=== PATIENT | male | born 1955 | race Native Hawaiian/Other Pacific Islander ===

== ENCOUNTER 2018-04-18 21:52 | Inpatient (IN) ==
[2018-04-18] MEDS ORDERED: Acetaminophen 325 MG Tablet PO ONE (22:36)
[2018-04-18] MEDS ORDERED: Sod Chloride 0.9% Inj 1,000 ML IV.SIG SCH ×2 (22:45→23:45)
[2018-04-18] MEDS ORDERED: Morphine Inj 4 MG/ML Vial IV.PUSH ONE (22:57)
--- NOTE | 2018-04-18 22:57 | ED ---
HPI General Chief complaint: Weakness Stated complaint: dizzy/difficutly urinating/hot and cold Time Seen by Provider: 04/18/18 22:36 Source: patient Mode of arrival: ambulatory Limitations: no limitations History of Present Illness HPI narrative: 63yo M with PMH of HTN, DM, BPH here with c/o feeling chills/hot and cold, generalized weakness, intermittent chest pain, abdominal pain, difficulty urinating for 2 days. Said chest pain is intermittent, sharp, midsternal and nonradiating. Son also noticed yellow coloration of bilateral sclera today. Abdominal pain is more epigastric but radiates to whole abdomen. Denies any sob, n/v, focal weakness or numbness. Related Data Home Medications Medication Instructions Recorded Confirmed aspirin 81 mg PO DAILY 04/19/18 04/19/18 glipizide 5 mg PO DAILY 04/19/18 04/19/18 metformin 500 mg PO BID 04/19/18 04/19/18 tamsulosin [Flomax] 0.4 mg PO DAILY 04/19/18 04/19/18 Allergies Allergy/AdvReac Type Severity Reaction Status Date / Time penicillin G Allergy Intermediate Rash Verified 04/18/18 23:22 Review of Systems ROS: all other systems reviewed are negative [facility] Medical History Medical History BPH (benign prostatic hyperplasia) (Acute) Diabetes (Acute) HTN (hypertension) (Acute) Family History Family History Mother Breast cancer Father Stroke Social History Social History Substance History: No History of Abuse Second Hand Smoke Exposure: No Smoking Status: Never smoker How Often Do You Have a Drink Containing Alcohol: Never Recent Travel in [facility] within the Last 8 Weeks: No Recent Out of Country Travel within the Last 8 Weeks: No Exam Narrative Exam Narrative: GENERAL: 63yo M in mild distress. SKIN: Focused skin assessment warm/dry. HEAD: Atraumatic. Normocephalic. EYES: Pupils equal and round. +scleral icterus. No injection or drainage. ENT: No nasal bleeding or discharge. Mucous membranes pink and moist. NECK: Trachea midline. No JVD. CARDIOVASCULAR: Tachycardic in the 130s. No murmur appreciated. RESPIRATORY: No accessory muscle use. Clear to auscultation. Breath sounds equal bilaterally. GASTROINTESTINAL: Abdomen soft, non-tender, nondistended. MUSCULOSKELETAL: No obvious deformities. No clubbing. No cyanosis. No edema. NEUROLOGICAL: Awake and alert. No obvious cranial nerve deficits. Motor grossly within normal limits in all extremities. Sensation intact. Normal speech. PSYCHIATRIC: Appropriate mood and affect; insight and judgment normal. Course Initial Documented Vital Signs Temperature 102 F H 04/18/18 22:03 Pulse Rate 131 H 04/18/18 22:03 Respiratory Rate 20 04/18/18 22:03 Blood Pressure 161/76 H 04/18/18 22:03 Pulse Oximetry 93 L 04/18/18 22:03 Last Documented Vital Signs Temperature 100.6 F H 04/19/18 20:00 Pulse Rate 138 H 04/19/18 20:00 Respiratory Rate 22 04/19/18 20:00 Blood Pressure 111/60 04/19/18 20:00 Pulse Oximetry 99 04/19/18 20:23 Critical Care Time Critical Care Time: Yes Total Critical Care Time: 45 Attestation: Aggregate critical care time was 45 minutes. Time to perform other separately billable procedures was not included in the critical care time. My time did not include minutes spent treating any other patients simultaneously or on activities that did not directly contribute to the patient's treatment. The services I provided to this patient were to treat and/or prevent clinically significant deterioration that could result in: cardiovascular collapse or . I provided critical care services requiring my management, as noted below: Chart data review, documentation time, medication orders and management, vital sign assessments/reviewing monitor data, ordering and reviewing lab tests, ordering and interpreting/reviewing x-rays and diagnostic studies, care of the patient and discussion of the patient with the admitting physicians. Sign Out Sign Out Data: Patient Sign Out occurred on 04/19/18 at 00:48. Patient's care was discussed, and care was transferred from Madie Nielson DO to Makayla Hernandez MD. Sign Out Comment: 63yo M with severe sepsis, pending CT a/p, impression is acute cholangitis. Need to be admitted but may be to the main. Last updated by Madie Nielson DO at 04/19/18 00:16 Post-Handoff Eval: Accepted in transfer of care for follow-up of pending CT and patient disposition Medical Decision Making MDM Narrative Medical decision making narrative: 63yo M here with fever, abdominal pain, sclero icterus, intermittent chest pain for 2 days. Pt is febrile at 102.9F and tachycardic in the 130s. Sepsis protocol initiated. Labs reviewed, no leukocytosis. H/H low at 12.3/38.7. Neutrophil 92.4%. BUN/creatinine elevated at 21/1.90. No prior to compare. Glucose is elevated at 292. CO2 normal. No increased anion gap. Total bilirubin is elevated at 5.7. LFTs elevated. Alk phos elevated. Lipase normal. CXR negative. Lactic is elevated at 3.2, ordered NS IVF x2. Troponin is elevated at 0.26, which I feel is more secondary to sepsis. Pt has no chest pain currently. Said last episode of chest pain was 2 days ago and it was intermittent sharp, burning midsternal chest pain. UA showed positive nitrate, ictotest. Pt given vancomycin and aztreonam since he is allergic to penicillin. Pt reevaluated after morphine and pain has improved. He has 1 20 gauge IV in left AC, ask nurse to place a second IV. Pt sign out to next team to admit and follow up with CT a/p. Pt speaks Portuguese only and family wanted son to translate. Son was present for history and physical. He left his phone number when he had to leave. His name is Ajay and number is [phone]. Accepted in transfer of care for follow-up of CT abdomen and pelvis and patient disposition CT abdomen pelvis identifies a markedly abnormal gallbladder with marked abdominal wall thickening and pericholecystic fluid marked debris and stones in the gallbladder with for percutaneous cholecystostomy per reading radiologist no ductal dilatation. Patient is identified to have marked left shift renal insufficiency elevated lactic acid remains tachycardic with fever after acetaminophen and IV fluids also identified to have elevated troponin I EKG shows sinus tachycardia patient denies any chest pain at this time no nausea or vomiting or shortness of breath. Patient is severely septic patient will need ongoing IV antibiotics intensive care management and procedural/surgical intervention. Plan will be to transfer patient to [facility] for ongoing management of sepsis. Patient spouse and patient's son notified of imaging results diagnosis need for transfer to [facility] to the intensive care unit at that facility and the plan for ongoing IV fluid support antibiotic possible need for pressure support and involvement of GI and general surgery as well as need for MRCP. Discussion with Dr. Conway control clerk subassembly for GI recommends MRCP to see if patient will be a candidate for ERCP and surgery consult this has been discussed with Dr. Benoit who will place surgical consult herself and will order MRCP to be done upon patient's arrival to [facility]. Medical Screen Exam Complete: Yes Emergency Medical Condition: Yes Differential Diagnosis Differential Diagnosis: Urosepsis vs. pancreatitis vs. acute cholangitis vs. hepatitis vs. pneumonia vs. ACS Lab Data Result diagrams: 04/18/18 22:45 04/19/18 04:37 Lab Results 04/18/18 04/18/18 04/18/18 Range/Units 22:45 22:45 22:45 CBC w Diff Slide review pending WBC 7.4 (4.0-11.0) th/mm3 RBC 5.56 (4.50-5.90) mil/mm3 Hgb 12.3 L (13.0-17.0) gm/dL Hct 38.7 L (39.0-51.0) % MCV 69.6 L (80.0-100.0) fL MCH 22.2 L (27.0-34.0) pg MCHC 31.9 L (32.0-36.0) % RDW 15.1 (11.6-17.2) % Plt Count 175 (150-450) th/mm3 MPV 9.8 (7.0-11.0) fL Neut % (Auto) 92.4 H (16.0-70.0) % Lymph % (Auto) 4.8 L (9.0-44.0) % [place] % (Auto) 2.3 (0.0-8.0) % Eos % (Auto) 0.1 (0.0-4.0) % Baso % (Auto) 0.4 (0.0-2.0) % Neut # (Auto) 6.8 (1.8-7.7) th/mm3 Lymph # (Auto) 0.4 L (1.0-4.8) th/mm3 [place] # (Auto) 0.2 (0.0-0.9) th/mm3 Eos # (Auto) 0.0 (0.0-0.4) th/mm3 Baso # (Auto) 0.0 (0.0-0.2) th/mm3 WBC Differential . Diff Scan Auto diff confirmed Differential Comment . Dimorphic RBCs Present H (None) Ovalocytes 2+ H (None) [place] Cells 1+ H (None) Keratocytes 2+ H (None) PT 12.6 H (9.8-11.6) sec INR 1.2 Ratio APTT 34.5 H (23.4-31.7) sec Sodium 134 L (136-145) meq/L Potassium 3.6 (3.5-5.1) meq/L Chloride 99 (98-107) meq/L Carbon Dioxide 26.1 (21.0-32.0) meq/L Anion Gap 9 (5-15) meq/L BUN 21 H (7-18) mg/dL Creatinine 1.90 H (0.60-1.30) mg/dL Estimated GFR 36 L (>89) mL/min POC Glucose (68-110) mg/dl Random Glucose 292 H (74-106) mg/dL Lactic Acid (0.4-2.0) mmol/L Calcium 9.0 (8.5-10.1) mg/dL Total Bilirubin (0.2-1.0) mg/dL Direct Bilirubin (0.0-0.2) mg/dL Indirect Bilirubin (0.0-0.8) mg/dL AST (15-37) U/L ALT (12-78) U/L Alkaline Phosphatase (45-117) U/L Troponin I (0.02-0.05) ng/mL Total Protein (6.4-8.2) g/dL Albumin (3.4-5.0) g/dL Lipase (73-393) U/L Urine Color (Yellw/Straw) Urine Clarity (Clear) Urine pH (5.0-8.5) Ur Specific [place] (1.002-1.035) Urine Protein (Neg-Trace) mg/dL Urine Glucose (UA) (Negative) mg/dL Urine Ketones (Negative) mg/dL Urine Occult Blood (Negative) Urine Nitrate (Negative) Urine Bilirubin (Negative) Urine Ictotest (Negative) Urine Urobilinogen (Less than 2) mg/dL Ur Leukocyte Esterase (Negative) Urine RBC (0-3) /hpf Urine WBC (0-5) /hpf Ur Squamous Epith Cells (0-5) /hpf Amorphous Sediment (None) /hpf Urine Bacteria (None) /hpf Fine Granular Casts (None) /lpf WBC Casts (None) /lpf Urine Mucus (Occasional) /lpf Micro UA Comment Ur Microscopic Review Urine Culture Comments Nasal Screen MRSA (PCR) (Negative) 04/18/18 04/18/18 04/18/18 Range/Units 22:45 22:45 23:22 CBC w Diff WBC (4.0-11.0) th/mm3 RBC (4.50-5.90) mil/mm3 Hgb (13.0-17.0) gm/dL Hct (39.0-51.0) % MCV (80.0-100.0) fL MCH (27.0-34.0) pg MCHC (32.0-36.0) % RDW (11.6-17.2) % Plt Count (150-450) th/mm3 MPV (7.0-11.0) fL Neut % (Auto) (16.0-70.0) % Lymph % (Auto) (9.0-44.0) % [place] % (Auto) (0.0-8.0) % Eos % (Auto) (0.0-4.0) % Baso % (Auto) (0.0-2.0) % Neut # (Auto) (1.8-7.7) th/mm3 Lymph # (Auto) (1.0-4.8) th/mm3 [place] # (Auto) (0.0-0.9) th/mm3 Eos # (Auto) (0.0-0.4) th/mm3 Baso # (Auto) (0.0-0.2) th/mm3 WBC Differential Diff Scan Differential Comment Dimorphic RBCs (None) Ovalocytes (None) [place] Cells (None) Keratocytes (None) PT (9.8-11.6) sec INR Ratio APTT (23.4-31.7) sec Sodium (136-145) meq/L Potassium (3.5-5.1) meq/L Chloride (98-107) meq/L Carbon Dioxide (21.0-32.0) meq/L Anion Gap (5-15) meq/L BUN (7-18) mg/dL Creatinine (0.60-1.30) mg/dL Estimated GFR (>89) mL/min POC Glucose (68-110) mg/dl Random Glucose (74-106) mg/dL Lactic Acid 3.2 H (0.4-2.0) mmol/L Calcium (8.5-10.1) mg/dL Total Bilirubin 5.7 H (0.2-1.0) mg/dL Direct Bilirubin 4.3 H (0.0-0.2) mg/dL Indirect Bilirubin 1.4 H (0.0-0.8) mg/dL AST 131 H (15-37) U/L ALT 338 H (12-78) U/L Alkaline Phosphatase 221 H (45-117) U/L Troponin I 0.26 H (0.02-0.05) ng/mL Total Protein 8.1 (6.4-8.2) g/dL Albumin 3.3 L (3.4-5.0) g/dL Lipase 135 (73-393) U/L Urine Color Yellow (Yellw/Straw) Urine Clarity Clear (Clear) Urine pH 5.5 (5.0-8.5) Ur Specific [place] Greater/equal 1.030 (1.002-1.035) Urine Protein 100 H (Neg-Trace) mg/dL Urine Glucose (UA) 100 H (Negative) mg/dL Urine Ketones Trace H (Negative) mg/dL Urine Occult Blood Large H (Negative) Urine Nitrate Positive H (Negative) Urine Bilirubin Large H (Negative) Urine Ictotest Positive H (Negative) Urine Urobilinogen 4.0 H (Less than 2) mg/dL Ur Leukocyte Esterase Negative (Negative) Urine RBC 51-189 H (0-3) /hpf Urine WBC 21-50 H (0-5) /hpf Ur Squamous Epith Cells 0-5 (0-5) /hpf Amorphous Sediment Many H (None) /hpf Urine Bacteria Moderate H (None) /hpf Fine Granular Casts 11-30 H (None) /lpf WBC Casts 4-10 H (None) /lpf Urine Mucus Few H (Occasional) /lpf Micro UA Comment Cath-culture ind Ur Microscopic Review Microscopic reviewed Urine Culture Comments Cath-cult indicated Nasal Screen MRSA (PCR) (Negative) 04/19/18 04/19/18 04/19/18 Range/Units 02:30 04:37 04:50 CBC w Diff WBC (4.0-11.0) th/mm3 RBC (4.50-5.90) mil/mm3 Hgb (13.0-17.0) gm/dL Hct (39.0-51.0) % MCV (80.0-100.0) fL MCH (27.0-34.0) pg MCHC (32.0-36.0) % RDW (11.6-17.2) % Plt Count (150-450) th/mm3 MPV (7.0-11.0) fL Neut % (Auto) (16.0-70.0) % Lymph % (Auto) (9.0-44.0) % [place] % (Auto) (0.0-8.0) % Eos % (Auto) (0.0-4.0) % Baso % (Auto) (0.0-2.0) % Neut # (Auto) (1.8-7.7) th/mm3 Lymph # (Auto) (1.0-4.8) th/mm3 [place] # (Auto) (0.0-0.9) th/mm3 Eos # (Auto) (0.0-0.4) th/mm3 Baso # (Auto) (0.0-0.2) th/mm3 WBC Differential Diff Scan Differential Comment Dimorphic RBCs (None) Ovalocytes (None) [place] Cells (None) Keratocytes (None) PT (9.8-11.6) sec INR Ratio APTT (23.4-31.7) sec Sodium 140 (136-145) meq/L Potassium 3.3 L (3.5-5.1) meq/L Chloride 107 D (98-107) meq/L Carbon Dioxide 23.5 (21.0-32.0) meq/L Anion Gap 10 (5-15) meq/L BUN 22 H (7-18) mg/dL Creatinine 1.68 H (0.60-1.30) mg/dL Estimated GFR 41 L (>89) mL/min POC Glucose (68-110) mg/dl Random Glucose 220 H (74-106) mg/dL Lactic Acid 1.2 (0.4-2.0) mmol/L Calcium 7.7 L D (8.5-10.1) mg/dL Total Bilirubin (0.2-1.0) mg/dL Direct Bilirubin (0.0-0.2) mg/dL Indirect Bilirubin (0.0-0.8) mg/dL AST (15-37) U/L ALT (12-78) U/L Alkaline Phosphatase (45-117) U/L Troponin I (0.02-0.05) ng/mL Total Protein (6.4-8.2) g/dL Albumin (3.4-5.0) g/dL Lipase (73-393) U/L Urine Color (Yellw/Straw) Urine Clarity (Clear) Urine pH (5.0-8.5) Ur Specific [place] (1.002-1.035) Urine Protein (Neg-Trace) mg/dL Urine Glucose (UA) (Negative) mg/dL Urine Ketones (Negative) mg/dL Urine Occult Blood (Negative) Urine Nitrate (Negative) Urine Bilirubin (Negative) Urine Ictotest (Negative) Urine Urobilinogen (Less than 2) mg/dL Ur Leukocyte Esterase (Negative) Urine RBC (0-3) /hpf Urine WBC (0-5) /hpf Ur Squamous Epith Cells (0-5) /hpf Amorphous Sediment (None) /hpf Urine Bacteria (None) /hpf Fine Granular Casts (None) /lpf WBC Casts (None) /lpf Urine Mucus (Occasional) /lpf Micro UA Comment Ur Microscopic Review Urine Culture Comments Nasal Screen MRSA (PCR) Not detected (Negative) 04/19/18 04/19/18 04/19/18 Range/Units 08:00 08:10 18:00 CBC w Diff WBC (4.0-11.0) th/mm3 RBC (4.50-5.90) mil/mm3 Hgb (13.0-17.0) gm/dL Hct (39.0-51.0) % MCV (80.0-100.0) fL MCH (27.0-34.0) pg MCHC (32.0-36.0) % RDW (11.6-17.2) % Plt Count (150-450) th/mm3 MPV (7.0-11.0) fL Neut % (Auto) (16.0-70.0) % Lymph % (Auto) (9.0-44.0) % [place] % (Auto) (0.0-8.0) % Eos % (Auto) (0.0-4.0) % Baso % (Auto) (0.0-2.0) % Neut # (Auto) (1.8-7.7) th/mm3 Lymph # (Auto) (1.0-4.8) th/mm3 [place] # (Auto) (0.0-0.9) th/mm3 Eos # (Auto) (0.0-0.4) th/mm3 Baso # (Auto) (0.0-0.2) th/mm3 WBC Differential Diff Scan Differential Comment Dimorphic RBCs (None) Ovalocytes (None) [place] Cells (None) Keratocytes (None) PT (9.8-11.6) sec INR Ratio APTT (23.4-31.7) sec Sodium (136-145) meq/L Potassium (3.5-5.1) meq/L Chloride (98-107) meq/L Carbon Dioxide (21.0-32.0) meq/L Anion Gap (5-15) meq/L BUN (7-18) mg/dL Creatinine (0.60-1.30) mg/dL Estimated GFR (>89) mL/min POC Glucose 196 H 147 H (68-110) mg/dl Random Glucose (74-106) mg/dL Lactic Acid (0.4-2.0) mmol/L Calcium (8.5-10.1) mg/dL Total Bilirubin (0.2-1.0) mg/dL Direct Bilirubin (0.0-0.2) mg/dL Indirect Bilirubin (0.0-0.8) mg/dL AST (15-37) U/L ALT (12-78) U/L Alkaline Phosphatase (45-117) U/L Troponin I (0.02-0.05) ng/mL Total Protein (6.4-8.2) g/dL Albumin (3.4-5.0) g/dL Lipase (73-393) U/L Urine Color (Yellw/Straw) Urine Clarity (Clear) Urine pH (5.0-8.5) Ur Specific [place] (1.002-1.035) Urine Protein (Neg-Trace) mg/dL Urine Glucose (UA) (Negative) mg/dL Urine Ketones (Negative) mg/dL Urine Occult Blood (Negative) Urine Nitrate (Negative) Urine Bilirubin (Negative) Urine Ictotest (Negative) Urine Urobilinogen (Less than 2) mg/dL Ur Leukocyte Esterase (Negative) Urine RBC (0-3) /hpf Urine WBC (0-5) /hpf Ur Squamous Epith Cells (0-5) /hpf Amorphous Sediment (None) /hpf Urine Bacteria (None) /hpf Fine Granular Casts (None) /lpf WBC Casts (None) /lpf Urine Mucus (Occasional) /lpf Micro UA Comment Ur Microscopic Review Urine Culture Comments Nasal Screen MRSA (PCR) Not detected (Negative) Imaging Data Radiologist's impression: Chest X-Ray 04/18/18 22:36 CONCLUSION: No acute disease Percutaneous Cholangiogram 04/19/18 00:00 CONCLUSION: 1. Uncomplicated percutaneous cholecystostomy as above. The patient has a patent cystic duct, however, there is occlusion of the common bile duct at the level of the ampulla. This is likely relating to a stone. Cholecystostomy tube placement was felt prudent to decompress the biliary system as detailed above. Turbid bile was noted and a sample sent to the lab for culture. Abdomen/Pelvis CT 04/19/18 00:18 CONCLUSION: 1. Severe changes of cholecystitis. There is no significant gallbladder lumen to allow for percutaneous cholecystostomy. 2. Hepatosplenomegaly. Cholangiopancreatography MRI 04/19/18 04:18 CONCLUSION: 1. Abnormal appearance to the gallbladder and hepatic parenchyma immediately surrounding the gallbladder fossa (rim sign) with multiple gallstones and significant gallbladder wall thickening. Differential considerations include acute cholecystitis and gangrenous cholecystitis. 2. No dilation of the intra or extrahepatic biliary system. ECG Data EKG Prior to Arrival: No Attestation: I personally reviewed and interpreted this ECG as follows: Interpretation: Sinus tachycardia at 125bpm. Normal axis. No significant ST elevation. Discharge Plan Discharge Disposition Patient Disposition: ED Admit(ED Internal Use Only) Discharge Condition Condition: Fair Discharge Order Discharge Orders: ED Use Only Admit Order (Routine); Ordered 04/19/18 Ordered By: Makayla Hernandez Discharge Details Diagnosis: Severe sepsis, Cholecystitis with cholangitis, UTI (urinary tract infection), Acute renal insufficiency Physicians Team ED Provider: Makayla Hernandez Primary Care Provider: Cholo Marin Attending Provider: Rosanna Benoit Other Providers: Jovi Sierra V ; Joseph,Frankie ; Gosia Elise ; Obdulio Wan Status ED Status: Left Department Discharge Information Discharge Date/Time: 04/19/18 03:45
--- NOTE | 2018-04-18 23:03 | XR ---
EXAM DATE: 04/18/2018 10:57 PM EST AGE/SEX: 63 years / Male INDICATIONS: COugh, dizziness. CLINICAL DATA: This is the patient's initial encounter. Patient reports that signs and symptoms have been present for 1 day and indicates a pain score of 0/10. MEDICAL/SURGICAL HISTORY: . Hypertension. Hypercholesterolemia. Osteoarthritis. Anticoagulant therapy, Aspirin 81mg. Hyperlipidemia. Diabetes. Anemia. Non-responsive. COMPARISON: No prior exams available for comparison. FINDINGS: A single AP view of the chest demonstrates the lungs to be symmetrically aerated without evidence of mass, infiltrate or effusion. The cardiomediastinal contours are unremarkable. Osseous structures a re intact. CONCLUSION: No acute disease Electronically signed by: Derek Marquis MD Board Certified Radiologist 04/18/2018 11:02 PM EST
[2018-04-18 23:22] LABS: Baso % (Auto) 0.4 % (0.0-2.0); Eos % (Auto) 0.1 % (0.0-4.0); Hematocrit 38.7 % (39.0-51.0); Hemoglobin 12.3 gm/dL (13.0-17.0); Lymph # (Auto) 0.4 th/mm3 (1.0-4.8); Lymph % (Auto) 4.8 % (9.0-44.0); Mean Corpuscular HGB Conc 31.9 % (32.0-36.0); Mean Corpuscular Hemoglobin 22.2 pg (27.0-34.0); Mean Corpuscular Volume 69.6 fL (80.0-100.0); Mean Platelet Volume 9.8 fL (7.0-11.0); Mono # (Auto) 0.2 th/mm3 (0.0-0.9); Mono % (Auto) 2.3 % (0.0-8.0); Neut # (Auto) 6.8 th/mm3 (1.8-7.7); Neut % (Auto) 92.4 % (16.0-70.0); Platelet Count 175 th/mm3 (150-450); Red Blood Count 5.56 mil/mm3 (4.50-5.90); Red Cell Distribution Width 15.1 % (11.6-17.2); White Blood Count 7.4 th/mm3 (4.0-11.0)
[2018-04-18 23:29] LABS: Potassium 3.6 meq/L (3.5-5.1)
[2018-04-18 23:32] LABS: Carbon Dioxide 26.1 meq/L (21.0-32.0)
[2018-04-18 23:34] LABS: Albumin 3.3 g/dL (3.4-5.0)
[2018-04-18 23:35] LABS: Activated Partial Thrombo Time 34.5 sec (23.4-31.7); INR 1.2 Ratio; Prothrombin Time 12.6 sec (9.8-11.6)
[2018-04-18 23:38] LABS: Total Protein 8.1 g/dL (6.4-8.2)
[2018-04-18 23:41] LABS: Troponin I 0.26 ng/mL (0.02-0.05)
[2018-04-18] MEDS ORDERED: Vancomycin Inj 1,000 MG in Sodium Chlor 0.9% Inj 250 ML IV.SIG ONE (23:43)
[2018-04-18 23:54] LABS: Bilirubin,Urine Large (Negative); Clarity,Urine Clear (Clear); Color,Urine Yellow (Yellw/Straw); Glucose,Urine (UA) 100 mg/dL (Negative); Leukocyte Esterase,Urine Negative (Negative); Nitrite,Urine Positive (Negative); PH,Urine 5.5 (5.0-8.5); Specific Gravity,Urine Greater/Equal 1.030 (1.002-1.035)
[2018-04-18 23:56] LABS: Ictotest,Urine Positive (Negative)
[2018-04-19 00:15] LABS: Amorphous Sediment,Urine Many /hpf
[2018-04-19 00:16] LABS: Mucus,Urine Few /lpf (Occasional); Squamous Epithelial Cell,Urine 0-5 /hpf (0-5); WBC,Urine 21-50 /hpf (0-5)
[2018-04-19 00:17] LABS: Bacteria,Urine Moderate /hpf; RBC,Urine 51-189 /hpf (0-3)
[2018-04-19 00:28] LABS: Dimorphic RBC Present
[2018-04-19 00:29] LABS: Burr Cells 1+; Ovalocytes 2+
--- NOTE | 2018-04-19 00:50 | CT ---
EXAM DATE: 04/19/2018 12:41 AM EST AGE/SEX: 63 years / Male INDICATIONS: Dizziness. Difficulty urinating. CLINICAL DATA: This is the patient's initial encounter. Patient reports that signs and symptoms have been present for 1 day and indicates a pain score of 7/10. MEDICAL/SURGICAL HISTORY: . Abdominal pain. . ORAL CONTRAST: No oral contrast ingested. RADIATION DOSE: 20.70 CTDI (mGy) COMPARISON: [facility], CT ABDOMEN AND PELVIS W/ CONTRAST, 05/18/2014. . TECHNIQUE: Multiple contiguous axial images were obtained through the abdomen and pelvis following b olus infusion of 46 ml Visipaque 320 (iodixanol) nonionic water-soluble contrast as a single exam d ose. No oral contrast ingested. Using automated exposure control and adjustment of the mA and/or kV according to patient size, radiation dose was kept as low as reasonably achievable to obtain optimal diagnostic quality images. DICOM format image data is available electronically for review and compar aileen. FINDINGS: Lower Lungs: Slight lateral left base atelectasis. Liver: The liver has a homogeneous density without space-occupying lesion. There is no dilation of th e biliary tree. The gallbladder is markedly abnormal containing stone debris with pronounced diffuse gallbladder wall thickening and extensive edematous change in the hepatic parenchyma adjacent to the gallbladder fossa. Moderate underlying pericholecystic inflammatory changes below the liver edge. Spleen: Mildly enlarged without focal mass. Pancreas: Unremarkable without mass or calcification. Kidneys: Normal in size and shape. No evidence of mass or hydronephrosis. Adrenal Glands: Unremarkable. Aorta: The aorta and proximal iliac vessels are grossly unremarkable without aneurysmal dilation. Bowel/Mesentery: The bowel loops are grossly unremarkable. The cecum and sigmoid colon have a normal configuration. Abdominal Wall: Intact. Retroperitoneum: Minimal prominence of periaortic lymph nodes. Bladder: Nondilated. Reproductive Organs: Mild prostatic enlargement. No evidence of pelvic mass or free fluid. Inguinal: The inguinal region is unremarkable without evidence of adenopathy. Bony Structures: Unremarkable. CONCLUSION: 1. Severe changes of cholecystitis. There is no significant gallbladder lumen to allow for percutane ous cholecystostomy. 2. Hepatosplenomegaly. Electronically signed by: Derek Marquis MD Board Certified Radiologist 04/19/2018 12:48 AM EST
[2018-04-19] MEDS ORDERED: Sod Chloride 0.9% Inj 1,000 ML IV.SIG SCH (01:45)
--- NOTE | 2018-04-19 04:37 | P.HPCC ---
History of Present Illness Service: Critical care medicine Primary Care Physician: Cholo Marin MD Chief Complaint: chills/abdominal pain. 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 He had 2-3 episodes of emesis 04/17. Was lethargic and slept most of the day. Today his son noticed he was jaundiced and having chills and so he encouraged him to come to the emergency department. He has no prior history of similar symptoms. He was febrile on arrival to 102.9. He has a normal white cell count but left shift. Lactic acid is 3.2. LFTs are elevated and obstructive pattern. CT abd/pelvis demonstrates gallbladder wall thickening with pericholecystic fluid. There is stone debris but no dilatation of the biliary tree. He is transferred to [facility] for stabilization of severe sepsis and GI evaluation for possible ERCP. U/a also consistent with UTI. - Diagnosis (1) Severe sepsis (2) Cholecystitis with cholangitis (3) UTI (urinary tract infection) (4) Acute renal insufficiency (5) BPH (benign prostatic hyperplasia) (6) Diabetes mellitus Inpatient Certification: I certify that the inpatient services were ordered in accordance with Medicare regulations governing the order. This includes certification that hospital inpatient services are reasonable and necessary and in the case of services not specified as inpatient-only under 42 CFR 419.22(n), that they are appropriately provided as inpatient services in accordance to with the 2-midnight benchmark under 43 CFR 412.3(e) Review of Systems Constitutional: Reports anorexia, Reports chills, Reports fatigue, Reports fever (s), Reports weakness Eyes: Denies change in vision Respiratory: Denies cough Gastrointestinal: Reports abdominal pain Genitourinary: Reports decreased urination Musculoskeletal: Denies joint pain Skin/Breast: Denies boil Hematologic/Lymphatic: Denies easy bleeding Allergic/Immunologic: Denies hives PMFSH - History History Provided By: Family Member - Medical History Medical History: Medical History (Last Updated 04/19/18 @ 08:12 by Rosanna Benoit MD) BPH (benign prostatic hyperplasia) Diabetes HTN (hypertension) - Surgical History Surgical History: Surgical History (Last Reviewed 02/15/19 @ 08:12 by Rosanna Benoit MD) No history of previous surgery - Family History Family History: Family History (Last Updated 04/19/18 @ 08:13 by Rosanna Benoit MD) Mother Breast cancer Father Stroke - Social History I have reviewed the patient's Social History: Yes - Tobacco History Second Hand Smoke Exposure: No Tobacco Use In Past 30 Days: No Smoking Status: Never smoker - Alcohol History How Often Do You Have a Drink Containing Alcohol: Never - Substance Use History Substance History: No History of Abuse - Travel History Recent Travel in the [place] Within the Last 8 Weeks: No Recent Travel Out of the Country Within the Last 8 Weeks: No - Immunization History Tetanus Immunization: Unsure Medications and Allergies Allergies Allergy/AdvReac Type Severity Reaction Status Date / Time penicillin G Allergy Intermediate Rash Verified 04/18/18 23:22 Home Medications Medication Instructions Recorded Confirmed Type aspirin 81 mg PO DAILY 04/19/18 04/19/18 History glipizide 5 mg PO DAILY 04/19/18 04/19/18 History metformin 500 mg PO BID 04/19/18 04/19/18 History tamsulosin [Flomax] 0.4 mg PO DAILY 04/19/18 04/19/18 History Results - Labs CBC & Chem 7: 04/18/18 22:45 04/19/18 04:37 Labs: Short CBC 04/18/18 Range/Units 22:45 WBC 7.4 (4.0-11.0) th/mm3 Hgb 12.3 L (13.0-17.0) gm/dL Hct 38.7 L (39.0-51.0) % Plt Count 175 (150-450) th/mm3 BMP 04/18/18 22:45 Sodium 134 L Potassium 3.6 Chloride 99 Carbon Dioxide 26.1 BUN 21 H Creatinine 1.90 H Calcium 9.0 Cardiac Enzymes 04/18/18 Range/Units 22:45 Troponin I 0.26 H (0.02-0.05) ng/mL Liver Function 04/18/18 Range/Units 22:45 Total Bilirubin 5.7 H (0.2-1.0) mg/dL Direct Bilirubin 4.3 H (0.0-0.2) mg/dL AST 131 H (15-37) U/L ALT 338 H (12-78) U/L Alkaline Phosphatase 221 H (45-117) U/L Albumin 3.3 L (3.4-5.0) g/dL Urine 04/18/18 Range/Units 23:22 Urine Color Yellow (Yellw/Straw) Urine Clarity Clear (Clear) Urine pH 5.5 (5.0-8.5) Ur Specific [place] Greater/equal 1.030 (1.002-1.035) Urine Protein 100 H (Neg-Trace) mg/dL Urine Glucose (UA) 100 H (Negative) mg/dL - Imaging Impressions Chest X-Ray 04/18/18 22:36 CONCLUSION: No acute disease Abdomen/Pelvis CT 04/19/18 00:18 CONCLUSION: 1. Severe changes of cholecystitis. There is no significant gallbladder lumen to allow for percutaneous cholecystostomy. 2. Hepatosplenomegaly. Exam Vital signs: Vital Signs 04/18/18 22:03 04/18/18 22:41 04/19/18 00:47 Temperature 102 F H 102.9 F H 103.0 F H Pulse Rate 131 H 128 H 121 H Respiratory Rate 20 15 Blood Pressure 161/76 H 153/67 H Pulse Oximetry 93 L 93 L 100 04/19/18 02:10 04/19/18 03:35 Temperature 100.0 F H 99.8 F H Pulse Rate 118 H 112 H Respiratory Rate 15 15 Blood Pressure 106/68 106/59 L Pulse Oximetry 93 L 94 L Intake & Output 04/18/18 04/18/18 04/19/18 06:59 18:59 06:59 Intake Total 3450 / 3450 Balance 3450 / 3450 Weight 115 kg Intake: IV 3450 / 3450 Azactam Inj 1,000 MG In NS Inj 100 / 100 100 ML @ 200 mls/hr IV.SIG ONCE ONE Rx#:[id number] NS Inj 1,000 ML @ 1000 mls/hr 3000 / 3000 IV.SIG BOLUS MELVIN Rx#:[id number] Vancomycin Inj 1,000 MG In NS 250 / 250 Inj 250 ML @ 250 mls/hr IV.SIG ONCE ONE Rx#:[id number] Flagyl 500 MG Inj 100 ML @ 100 100 / 100 mls/hr IV.SIG ONCE ONE Rx#: [id number] Narrative: GENERAL: Well-nourished, well-developed patient who is pleasant, alert, can be recumbent in bed on room air. SKIN: Warm and dry. HEAD: Atraumatic. Normocephalic. EYES: Pupils equal and round. +icterus No injection or drainage. ENT: No nasal bleeding or discharge. Mucous membranes pink and moist. NECK: Trachea midline. No JVD. CARDIOVASCULAR: Regular rate and rhythm. No murmurs rubs or gallops. RESPIRATORY: No accessory muscle use. Clear to auscultation. Breath sounds equal bilaterally. On RA. GASTROINTESTINAL: Marked tenderness RUQ and epigastrium. No rebound or guarding. BS+. MUSCULOSKELETAL: Extremities without clubbing, cyanosis, or edema. NEUROLOGICAL: Awake and alert. No obvious cranial nerve deficits. Motor grossly within normal limits. Normal speech. Septic Shock Reassessment Septic shock perfusion: reassessment completed Caprini VTE Risk Assessment Caprini VTE Risk Assessment: Moderate/High Risk (score >= 2) Caprini Risk Assessment Model: Point Value = 1 Point Value = 2 Point Value = 3 Point Value = 5 Age 41-60 Minor surgery BMI > 25 kg/m2 Swollen legs Varicose veins or History of unexplained or recurrent spontaneous Oral contraceptives or hormone replacement Sepsis (< 1 month) Serious lung disease, including pneumonia (< 1 month) Abnormal pulmonary function Acute myocardial infarction Congestive heart failure (< 1 month) History of inflammatory bowel disease Medical patient at bed rest Age 61-74 Arthroscopic surgery Major open surgery (> 45 min) Laparoscopic surgery (> 45 min) Malignancy Confined to bed (> 72 hours) Immobilizing plaster cast Central venous access Age >= 75 History of VTE Family history of VTE Factor V Leiden Prothrombin [id number] Lupus anticoagulant Anticardiolipin antibodies Elevated serum homocysteine Heparin-induced thrombocytopenia Other congenital or acquired thrombophilia Stroke (< 1 month) Elective arthroplasty Hip, pelvis, or leg fracture Acute spinal cord injury (< 1 month) Prophylaxis Regimen: Total Risk Factor Score Risk Level Prophylaxis Regimen 0-1 Low Early ambulation 2 Moderate Order ONE of the following: *Sequential Compression Device (SCD) *Heparin 5000 units SQ BID 3-4 Higher Order ONE of the following medications: *Heparin 5000 units SQ TID *Enoxaparin/Lovenox 40 mg SQ daily (WT < 150 kg, CrCl > 30 mL/min) *Enoxaparin/Lovenox 30 mg SQ daily (WT < 150 kg, CrCl > 10-29 mL/min) *Enoxaparin/Lovenox 30 mg SQ BID (WT < 150 kg, CrCl > 30 mL/min) AND/OR *Sequential Compression Device (SCD) 5 or more Highest Order ONE of the following medications: *Heparin 5000 units SQ TID (Preferred with Epidurals) *Enoxaparin/Lovenox 40 mg SQ daily (WT < 150 kg, CrCl > 30 mL/min) *Enoxaparin/Lovenox 30 mg SQ daily (WT < 150 kg, CrCl > 10-29 mL/min) *Enoxaparin/Lovenox 30 mg SQ BID (WT < 150 kg, CrCl > 30 mL/min) AND *Sequential Compression Device (SCD) Assessment and Plan - Problem List (1) Severe sepsis Code(s): A41.9 - Sepsis, unspecified organism; R65.20 - Severe sepsis without septic shock Status: Acute (2) Cholecystitis with cholangitis Code(s): K81.9 - Cholecystitis, unspecified; K83.09 - Other cholangitis Status : Acute (3) UTI (urinary tract infection) Code(s): N39.0 - Urinary tract infection, site not specified Status: Acute (4) Acute renal insufficiency Code(s): N28.9 - Disorder of kidney and ureter, unspecified Status: Acute (5) BPH (benign prostatic hyperplasia) Code(s): N40.0 - Benign prostatic hyperplasia without lower urinary tract symptoms Status: Chronic (6) Diabetes mellitus Code(s): E11.9 - Type 2 diabetes mellitus without complications Status: Chronic - Assessment and Plan Plan: NEURO: Dilaudid as needed pain. Avoid morphine prior to ERCP. RESP: On room air CV: Lactic acidemia LR 120 mL/h. Follow-up serial lactic acid Currently not requiring vasopressors. Monitor blood pressure and heart rate. GI: Acute cholangitis/severe cholecystitis CT abd/pelvis with wall thickening and pericholecystic fluid. No dilation of biliary ducts. Reviewed by Dr. Marquis and not amenable to percutaneous drainage. Dr. Hernandez discussed with . I will order MRCP to evaluate for evidence of obstruction and may proceed with ERCP. May require cholecystectomy for source control if not amenable to ERCP/not improved with ERCP (versus delayed cholecystectomy following medical management) . GI/gen surgery consults. Monitor LFTs. Abx as per below NPO FEN/RENAL: MARIAM BPH LR as per above Flomax 0.4 mg p.o. daily ID: Severe sepsis Acute cholangitis/severe cholecystitis UTI Aztreonam and Flagyl (penicillin allergy). Follow-up blood and urine culture. Source control as per above. HEME: Monitor CBC ENDO: Diabetes mellitus Hold glipizide and metformin. Bedside glucose every 6 hours with medium dose insulin sliding scale. PROPH: SCDs for DVT prophylaxis. Avoid heparin at this time due to anticipated ERCP. Protonix 40 mg IV daily for stress ulcer prophylaxis ACCESS: Peripheral IV. FULL CODE Patient asked that I share his medical information and update his son, Kristie, who is a local dentist. I spoke with his son and provided update when patient arrived to [facility] Main. Patient is critically ill with severe sepsis and suspected cholangitis who is at high risk for acute deterioration. He should remain in ICU. He currently is normotensive and not requiring vasopressors. Will place central line if needed. CCT 40 minutes (3) UTI (urinary tract infection) Qualifiers: Urinary tract infection type: acute cystitis Hematuria presence: without hematuria Qualified Code(s): N30.00 - Acute cystitis without hematuria (6) Diabetes mellitus Qualifiers: Diabetes mellitus type: type 2
[2018-04-19 05:23] LABS: Calcium 7.7 mg/dL (8.5-10.1); Carbon Dioxide 23.5 meq/L (21.0-32.0); Potassium 3.3 meq/L (3.5-5.1)
[2018-04-19] MEDS ORDERED: Potassium Chloride Liq 20 MEQ/15 ML UDC PO PRN ×2 (06:46)
[2018-04-19] MEDS ORDERED: Magnesium Oxide 400 MG Tablet PO PRN (06:46)
[2018-04-19] MEDS ORDERED: Potassium Chlor 20 mEq Premix 20 MEQ/100 ML PIGGYBACK IV.SIG PRN (06:46)
[2018-04-19] MEDS ORDERED: Potassium Chlor 40 mEq Premix 40 MEQ/100 ML PIGGYBACK IV.SIG PRN ×2 (06:46)
[2018-04-19] MEDS ORDERED: Sodium Phosphate Inj 30 MMOL in Sodium Chlor 0.9% Inj 250 ML IV.SIG PRN (06:46)
[2018-04-19] MEDS ORDERED: hydrALAZINE HCl Inj 20 MG/ML Vial IV.PUSH PRN (06:46)
[2018-04-19] MEDS ORDERED: Magnesium Sulfate Inj 2 GM in Sodium Chlor 0.9% Inj 96 ML IV.SIG PRN (06:46)
[2018-04-19] MEDS ORDERED: Magnesium Sulfate Inj 4 GM in Sodium Chlor 0.9% Inj 92 ML IV.SIG PRN (06:46)
[2018-04-19] MEDS ORDERED: Dextrose 50% in Water 50 ML Vial IV.PUSH PRN (06:46)
[2018-04-19] MEDS ORDERED: Potassium Phosphate 500 MG Soluble Tablet PO PRN ×2 (06:46)
[2018-04-19] MEDS ORDERED: Potassium Phosphate Inj 30 MMOL in Sodium Chlor 0.9% Inj 250 ML IV.SIG PRN (06:46)
[2018-04-19] MEDS ORDERED: Labetalol HCl Inj 100 MG/20 ML Vial IV.PUSH PRN (06:46)
[2018-04-19] MEDS ORDERED: Labetalol HCl Inj 20 MG/4 ML Vial IV.PUSH PRN (07:45)
[2018-04-19] MEDS: HYDROmorphone PF Inj 0.5 MG/0.5 ML Syringe IV.PUSH PRN ×3 (08:03→15:09)
--- NOTE | 2018-04-19 08:21 | P.CONGI ---
History of Present Illness Consult date: 04/19/18 Consult reason: Cholecystitis Chief complaint: Severe Sepsis, Cholecystitis W/ Cholangitis, History of Present Illness: This is a pleasant 63-year-old male patient with pertinent medical history of diabetes mellitus chronic kidney insufficiency BPH and hypertension presented to the [facility] emergency room for generalized weakness epigastric pain intermittent chest pain associated with nausea and vomiting and difficulty of urinating for the past 2 days. Chest pain is described as nonradiating and intensifies when leaning forward. For the past 24 hours the epigastric pain has not change characterizes 9/10 stabbing and radiating to the right lower and right upper quadrant. 24 hours prior to onset of abdominal pain patient was having tactile fever and chills. patient denies blood in the stool or any black tarry stool in the past or hematemesis. Patient is not taking any anticoagulants at home except for aspirin 81 mg daily. Patient stated that his son noted that his eyes are becoming yellow. our service is consulted for possible acute cholecystitis with cholangitis. Review of Systems All other systems reviewed negative except as stated in HPI PMFSH - History History Provided By: Family Member - Medical History Medical History: Medical History (Last Updated 04/19/18 @ 08:12 by Rosanna Benoit MD) BPH (benign prostatic hyperplasia) Diabetes HTN (hypertension) - Surgical History Surgical History: Surgical History (Last Reviewed 04/19/18 @ 08:12 by Rosanna Benoit MD) No history of previous surgery - Family History Family History: Family History (Last Updated 04/19/18 @ 08:13 by Rosanna Benoit MD) Mother Breast cancer Father Stroke - Tobacco History Second Hand Smoke Exposure: No Tobacco Use In Past 30 Days: No Smoking Status: Never smoker - Alcohol History How Often Do You Have a Drink Containing Alcohol: Never - Substance Use History Substance History: No History of Abuse - Travel History Recent Travel in the [place] Within the Last 8 Weeks: No Recent Travel Out of the Country Within the Last 8 Weeks: No - Immunization History Tetanus Immunization: Unsure Medications and Allergies Active Medications: Active Medications Albuterol (Duoneb Neb (Prn)) 1 ampul NEB Q2HR NEB PRN PRN Reason: WHEEZING Chlorhexidine Gluconate (Chlorhexidine 2% Cloth) 3 pack TOPICAL DAILY@0400 [facility] Stop: 04/25/18 03:59 Chlorhexidine Gluconate (Chlorhexidine 2% Cloth) 3 pack TOPICAL DAILY@0400 PRN PRN Reason: Extra cloth needed Stop: 04/25/18 03:59 Dextrose (D50w Vial) 50 ml IV.PUSH UNSCH PRN PRN Reason: PER HYPOGLYCEMIA PROTOCOL Glucagon (Glucagon Inj) 1 mg OTHER PRN PRN PRN Reason: for Hypoglycemia Protocol Hydralazine HCl (Apresoline Inj) 10 mg IV.PUSH Q30M PRN PRN Reason: sbp > 160, dbp > 95 Hydromorphone HCl (Dilaudid Pf Inj) 0.5 mg IV.PUSH Q1H PRN PRN Reason: pain 8-10 or not taking po Potassium Chloride (Kcl 40 Meq Premix Inj) 40 meq in 100 mls @ 25 mls/hr IV.SIG Q2H PRN PRN Reason: For Potassium 2.8 - 3.2 mEq/L Potassium Chloride (Kcl 20 Meq Premix Inj) 20 meq in 100 mls @ 50 mls/hr IV.SIG Q2H PRN PRN Reason: For Potassium 3.3 - 3.5 mEq/L Potassium Chloride (Kcl 40 Meq Premix Inj) 40 meq in 100 mls @ 25 mls/hr IV.SIG UNSCH PRN PRN Reason: For Potassium 3.3 - 3.5 mEq/L Sodium Phosphate 30 mmol/ (Sodium Chloride) 260 mls @ 42 mls/hr IV.SIG UNSCH PRN PRN Reason: For Phosphorus < 2.5 mg/dL Potassium Phosphate 30 mmol/ (Sodium Chloride) 260 mls @ 42 mls/hr IV.SIG UNSCH PRN PRN Reason: SEE LABEL COMMENTS Magnesium Sulfate 4 gm/ Sodium (Chloride) 100 mls @ 50 mls/hr IV.SIG UNSCH PRN PRN Reason: For Magnesium 0.9 - 1.1 mg/dL Potassium Chloride (Kcl 20 Meq Premix Inj) 20 meq in 100 mls @ 50 mls/hr IV.SIG Q2H PRN PRN Reason: For Potassium 2.8 - 3.2 mEq/L Lactated Ringer's (Lr 1000 Ml Inj) 1,000 mls @ 120 mls/hr IV.CONT .Q8H20M MELVIN Magnesium Sulfate 2 gm/ Sodium (Chloride) 100 mls @ 50 mls/hr IV.SIG UNSCH PRN PRN Reason: For Magnesium 1.2 - 1.6 mg/dL Aztreonam 2 gm/ Sodium (Chloride) 100 mls @ 200 mls/hr IV.SIG Q8H MELVIN Metronidazole/Sodium Chloride (Flagyl 500 Mg Inj) 100 mls @ 100 mls/hr IV.SIG Q8H MELVIN Insulin Human Regular (Novolin R Correctional Sugar Inj) 0 units SQ Q6HR MELVIN; Protocol Labetalol HCl (Trandate Inj) 10 mg IV.PUSH Q20M PRN PRN Reason: sbp > 160 or DBP > 95 Magnesium Oxide (Mag-Ox) 800 mg PO UNSCH PRN PRN Reason: For Magnesium 1.2 - 1.6 mg/dL Ondansetron HCl (Zofran Inj) 4 mg IV.PUSH Q6H PRN PRN Reason: NAUSEA OR VOMITING Potassium Chloride (Kcl Liq) 40 meq PO UNSCH PRN PRN Reason: Potassium level 3.3-3.5 mEq/L Potassium Chloride (Kcl Liq) 40 meq PO UNSCH PRN PRN Reason: POTASSIUM LESS THAN 3.5 Potassium Phosphate (K-Phos Original) 2,000 mg PO Q4H PRN PRN Reason: Phosphorus Less Than 2.5 mg/dL Potassium Phosphate (K-Phos Original) 2,000 mg PO UNSCH PRN PRN Reason: SEE LABEL COMMENTS Sodium Chloride (Ns Flush) 2 ml IV.FLUSH UNSCH PRN PRN Reason: FLUSH AFTER USING IV ACCESS Allergies Allergy/AdvReac Type Severity Reaction Status Date / Time penicillin G Allergy Intermediate Rash Verified 04/18/18 23:22 Home Medications Medication Instructions Recorded Confirmed Type aspirin 81 mg PO DAILY 04/19/18 04/19/18 History glipizide 5 mg PO DAILY 04/19/18 04/19/18 History metformin 500 mg PO BID 04/19/18 04/19/18 History tamsulosin [Flomax] 0.4 mg PO DAILY 04/19/18 04/19/18 History Exam Vital signs: Vital Signs 04/18/18 22:03 04/18/18 22:41 04/19/18 00:47 Temperature 102 F H 102.9 F H 103.0 F H Pulse Rate 131 H 128 H 121 H Respiratory Rate 20 15 Blood Pressure 161/76 H 153/67 H Pulse Oximetry 93 L 93 L 100 04/19/18 02:10 04/19/18 03:35 02/15/19 04:10 Temperature 100.0 F H 99.8 F H Pulse Rate 118 H 112 H 101 H Respiratory Rate 15 15 Blood Pressure 106/68 106/59 L Pulse Oximetry 93 L 94 L 96 04/19/18 04:30 04/19/18 05:00 04/19/18 06:00 Temperature 99.1 F Pulse Rate 104 H 104 H 99 H Respiratory Rate 25 H 23 20 Blood Pressure 128/67 119/57 L Pulse Oximetry 96 96 98 Intake & Output 04/18/18 04/19/18 04/19/18 18:59 06:59 18:59 Intake Total 3450 / 3450 Balance 3450 / 3450 Weight 106.7 kg Intake: IV 3450 / 3450 Azactam Inj 1,000 MG In NS Inj 100 / 100 100 ML @ 200 mls/hr IV.SIG ONCE ONE Rx#:[id number] NS Inj 1,000 ML @ 1000 mls/hr 3000 / 3000 IV.SIG BOLUS MELVIN Rx#:[id number] Vancomycin Inj 1,000 MG In NS 250 / 250 Inj 250 ML @ 250 mls/hr IV.SIG ONCE ONE Rx#:[id number] Flagyl 500 MG Inj 100 ML @ 100 100 / 100 mls/hr IV.SIG ONCE ONE Rx#: [id number] Oral 0 / 0 Other: # Voids 1 Date of Last Bowel Movement 04/19/18 # Bowel Movements 1 Weight On Admission 115 kg - Constitutional mild distress, average body habitus - Routine HEENT Exam Head: Present: normocephalic, atraumatic Eye: Present: conjunctival icterus - Routine Neck Exam Present: supple - Routine Respiratory Exam Present: CTA bilaterally - Routine Cardiovascular Exam Present: RRR, S1, S2 - Routine Abdominal Exam Present: normoactive bowel sounds, tenderness, guarding, organomegaly. Absent: distended - Detailed Abdominal Exam Palpation/Percussion: Present: hepatomegaly, splenomegaly - Routine Extremities Exam Present: pulses intact, normal capillary refill - Routine Skin Exam Present: intact - Routine Neurological Exam Present: alert, oriented X3 Results - Labs CBC & Chem 7: 04/18/18 22:45 04/19/18 04:37 Labs: Laboratory Results - last 24 hr 04/18/18 04/18/18 04/18/18 22:45 22:45 22:45 CBC w Diff Slide review pending WBC 7.4 RBC 5.56 Hgb 12.3 L Hct 38.7 L MCV 69.6 L MCH 22.2 L MCHC 31.9 L RDW 15.1 Plt Count 175 MPV 9.8 Neut % (Auto) 92.4 H Lymph % (Auto) 4.8 L [place] % (Auto) 2.3 Eos % (Auto) 0.1 Baso % (Auto) 0.4 Neut # (Auto) 6.8 Lymph # (Auto) 0.4 L [place] # (Auto) 0.2 Eos # (Auto) 0.0 Baso # (Auto) 0.0 WBC Differential . Diff Scan Auto diff confirmed Differential Comment . Dimorphic RBCs Present H Ovalocytes 2+ H [place] Cells 1+ H Keratocytes 2+ H PT 12.6 H INR 1.2 APTT 34.5 H Sodium 134 L Potassium 3.6 Chloride 99 Carbon Dioxide 26.1 Anion Gap 9 BUN 21 H Creatinine 1.90 H Estimated GFR 36 L Random Glucose 292 H Lactic Acid Calcium 9.0 Total Bilirubin Direct Bilirubin Indirect Bilirubin AST ALT Alkaline Phosphatase Troponin I Total Protein Albumin Lipase Urine Color Urine Clarity Urine pH Ur Specific [place] Urine Protein Urine Glucose (UA) Urine Ketones Urine Occult Blood Urine Nitrate Urine Bilirubin Urine Ictotest Urine Urobilinogen Ur Leukocyte Esterase Urine RBC Urine WBC Ur Squamous Epith Cells Amorphous Sediment Urine Bacteria Fine Granular Casts WBC Casts Urine Mucus Micro UA Comment Ur Microscopic Review Urine Culture Comments 04/18/18 04/18/18 04/18/18 22:45 22:45 23:22 CBC w Diff WBC RBC Hgb Hct MCV MCH MCHC RDW Plt Count MPV Neut % (Auto) Lymph % (Auto) [place] % (Auto) Eos % (Auto) Baso % (Auto) Neut # (Auto) Lymph # (Auto) [place] # (Auto) Eos # (Auto) Baso # (Auto) WBC Differential Diff Scan Differential Comment Dimorphic RBCs Ovalocytes [place] Cells Keratocytes PT INR APTT Sodium Potassium Chloride Carbon Dioxide Anion Gap BUN Creatinine Estimated GFR Random Glucose Lactic Acid 3.2 H Calcium Total Bilirubin 5.7 H Direct Bilirubin 4.3 H Indirect Bilirubin 1.4 H AST 131 H ALT 338 H Alkaline Phosphatase 221 H Troponin I 0.26 H Total Protein 8.1 Albumin 3.3 L Lipase 135 Urine Color Yellow Urine Clarity Clear Urine pH 5.5 Ur Specific [place] Greater/equal 1.030 Urine Protein 100 H Urine Glucose (UA) 100 H Urine Ketones Trace H Urine Occult Blood Large H Urine Nitrate Positive H Urine Bilirubin Large H Urine Ictotest Positive H Urine Urobilinogen 4.0 H Ur Leukocyte Esterase Negative Urine RBC 51-189 H Urine WBC 21-50 H Ur Squamous Epith Cells 0-5 Amorphous Sediment Many H Urine Bacteria Moderate H Fine Granular Casts 11-30 H WBC Casts 4-10 H Urine Mucus Few H Micro UA Comment Cath-culture ind Ur Microscopic Review Microscopic reviewed Urine Culture Comments Cath-cult indicated 04/19/18 04/19/18 02:30 04:37 CBC w Diff WBC RBC Hgb Hct MCV MCH MCHC RDW Plt Count MPV Neut % (Auto) Lymph % (Auto) [place] % (Auto) Eos % (Auto) Baso % (Auto) Neut # (Auto) Lymph # (Auto) [place] # (Auto) Eos # (Auto) Baso # (Auto) WBC Differential Diff Scan Differential Comment Dimorphic RBCs Ovalocytes [place] Cells Keratocytes PT INR APTT Sodium 140 Potassium 3.3 L Chloride 107 D Carbon Dioxide 23.5 Anion Gap 10 BUN 22 H Creatinine 1.68 H Estimated GFR 41 L Random Glucose 220 H Lactic Acid 1.2 Calcium 7.7 L D Total Bilirubin Direct Bilirubin Indirect Bilirubin AST ALT Alkaline Phosphatase Troponin I Total Protein Albumin Lipase Urine Color Urine Clarity Urine pH Ur Specific [place] Urine Protein Urine Glucose (UA) Urine Ketones Urine Occult Blood Urine Nitrate Urine Bilirubin Urine Ictotest Urine Urobilinogen Ur Leukocyte Esterase Urine RBC Urine WBC Ur Squamous Epith Cells Amorphous Sediment Urine Bacteria Fine Granular Casts WBC Casts Urine Mucus Micro UA Comment Ur Microscopic Review Urine Culture Comments - Imaging Impressions Chest X-Ray 04/18/18 22:36 CONCLUSION: No acute disease Abdomen/Pelvis CT 04/19/18 00:18 CONCLUSION: 1. Severe changes of cholecystitis. There is no significant gallbladder lumen to allow for percutaneous cholecystostomy. 2. Hepatosplenomegaly. Assessment and Plan (1) Severe sepsis Status: Acute Code(s): A41.9 - Sepsis, unspecified organism; R65.20 - Severe sepsis without septic shock (2) Cholecystitis with cholangitis Status: Acute Code(s): K81.9 - Cholecystitis, unspecified; K83.09 - Other cholangitis (3) UTI (urinary tract infection) Status: Acute Code(s): N39.0 - Urinary tract infection, site not specified (4) Acute cholecystitis due to biliary calculus Status: Acute Code(s): K80.00 - Calculus of gallbladder with acute cholecystitis without obstruction (5) Hyperbilirubinemia Status: Acute Code(s): E80.6 - Other disorders of bilirubin metabolism - Plan 04/19/2018 This is a pleasant 63-year-old male patient with pertinent medical history of diabetes mellitus chronic kidney insufficiency BPH and hypertension presented to the [facility] emergency room for generalized weakness epigastric pain intermittent chest pain associated with nausea and vomiting and difficulty of urinating for the past 2 days. Chest pain is described as nonradiating and intensifies when leaning forward. For the past 24 hours the epigastric pain has not change characterizes 9/10 stabbing and radiating to the right lower and right upper quadrant. 24 hours prior to onset of abdominal pain patient was having tactile fever and chills. patient denies blood in the stool or any black tarry stool in the past or hematemesis. Patient is not taking any anticoagulants at home. Patient stated that his son noted that his eyes are becoming yellow. our service is consulted for possible acute cholecystitis. Assessment Acute cholecystitis Transaminitis Hyperbilirubinemia Hypokalemia Chronic microcytic anemia Diabetes mellitus type 2 Chronic kidney insufficiency Hemoglobin 2.3 hematocrit 38.7 platelet 175 INR 1.2 Potassium 3.3 BUN 22 creatinine 1.68 GFR 41 AST 131 ALT 338 alk phos [address] scan 04/19/2018 showed severe changes of cholecystitis there is no significant gallbladder lumen to allow for percutaneous cholecystostomy. hepatosplenomegaly MRCP - abnormal appearance of GB and hepatic parenchyma. multiple gb stones. acute versus gangrenous cholecystitis .No dilatation of the intra or extra hepatic ducts Plan -Patient n.p.o. -Surgery rec. cholecystomy tube for biliary drainage -PPI -IV hydration -Antibiotics -Monitor labs -Monitor active bleeding -Supportive care -Further recommendations to follow This patient was seen and examined by myself and Dr. Sierra and this note is written on his behalf - Attending Attestation Dr. Sierra (3) UTI (urinary tract infection) Qualifiers: Urinary tract infection type: acute cystitis Hematuria presence: without hematuria Qualified Code(s): N30.00 - Acute cystitis without hematuria
[2018-04-19] MEDS: Insulin NovoLIN Regular Correctional Sugar Inj SQ SCH ×3 (08:38→18:01)
--- NOTE | 2018-04-19 09:40 | MR ---
EXAM DATE: 04/19/2018 9:09 AM EST AGE/SEX: 63 years / Male INDICATIONS: Abdominal pain. CLINICAL DATA: This is the patient's initial encounter. Patient reports that signs and symptoms have been present for 1 day and indicates a pain score of 0/10. MEDICAL/SURGICAL HISTORY: Diabetes mellitus type II. Hypertension. None. COMPARISON: [facility], CT ABDOMEN & PELVIS W CONTRAST, 04/19/2018. . TECHNIQUE: Multiplanar, multisequence images of the abdomen were obtained without contrast including dedicated cholangiographic images. FINDINGS: Markedly abnormal appearance to the gallbladder with gallbladder wall thickening measuring up to 1.7 cm, several small filling defects within the lumen of the gallbladder characteristic of layering ston es, and signal change in the hepatic parenchyma surrounding the gallbladder fossa suggesting surround ing edema about the gallbladder fossa. No dilation of the intra or extrahepatic biliary system. No filling defects seen in the common bile d uct. The pancreatic duct is not dilated. No focal lesions seen in the liver or spleen. No evidence of ascites. CONCLUSION: 1. Abnormal appearance to the gallbladder and hepatic parenchyma immediately surrounding the gallbla dder fossa (rim sign) with multiple gallstones and significant gallbladder wall thickening. Different ial considerations include acute cholecystitis and gangrenous cholecystitis. 2. No dilation of the intra or extrahepatic biliary system. Electronically signed by: Fransisco Lopes MD Board Certified Radiologist 04/19/2018 9:38 AM EST
[2018-04-19] MEDS: Pantoprazole Inj 40 MG Vial IV.PUSH SCH (09:54)
[2018-04-19] MEDS: Aztreonam Inj 2 GM in Sodium Chloride 0.9% Inj 100 ML IV.SIG SCH ×2 (09:55→16:37)
[2018-04-19] MEDS: Potassium Chlor 20 mEq Premix 20 MEQ/100 ML PIGGYBACK IV.SIG PRN ×2 (09:58→14:34)
--- NOTE | 2018-04-19 10:31 | P.CONGS ---
[facility] Gen Surgery Consult Note Consult date: 04/19/18 Narrative: 63 yo M developed severe sudden onset of epigastric abdominal pain and substernal chest pain on Sunday morning at 6 am. He slept for a long time and the pain persisted, and he presented to the [place] emergency department on night. He had also noticed yellowing of the eyes. He was noted to have normal white blood count with 92% neutrophils. LFTs are elevated with a bilirubin of 5.7, AST 131, ALT 338, 221 alk phos. BUN and creatinine were [address] of the abdomen and pelvis showed inflammation and distention of the gallbladder was severely thickened gallbladder wall as well as gallstones. There is inflammation of the surrounding hepatic parenchyma. The patient was transferred to [facility] and admitted to the intensive surgical care. MRCP was ordered and is been done this morning which shows thickened gallbladder wall, gallstones, no common bile duct filling defects. Patient has had no previous abdominal surgeries. Review of Systems All other systems reviewed negative except as stated in [facility] - History History Provided By: Family Member - Medical History Medical History: Medical History (Last Updated 04/19/18 @ 08:12 by Rosanna Benoit MD) BPH (benign prostatic hyperplasia) Diabetes HTN (hypertension) - Surgical History Surgical History: Surgical History (Last Reviewed 04/19/18 @ 08:12 by Rosanna Benoit MD) No history of previous surgery - Family History Family History: Family History (Last Updated 04/19/18 @ 08:13 by Rosanna Benoit MD) Mother Breast cancer Father Stroke - Tobacco History Second Hand Smoke Exposure: No Tobacco Use In Past 30 Days: No Smoking Status: Never smoker - Alcohol History How Often Do You Have a Drink Containing Alcohol: Never - Substance Use History Substance History: No History of Abuse - Travel History Recent Travel in the [place] Within the Last 8 Weeks: No Recent Travel Out of the Country Within the Last 8 Weeks: No - Immunization History Tetanus Immunization: Unsure Medications and Allergies Active Medications: Active Medications Albuterol (Duoneb Neb (Prn)) 1 ampul NEB Q2HR NEB PRN PRN Reason: WHEEZING Chlorhexidine Gluconate (Chlorhexidine 2% Cloth) 3 pack TOPICAL DAILY@0400 [facility] Stop: 04/25/18 03:59 Chlorhexidine Gluconate (Chlorhexidine 2% Cloth) 3 pack TOPICAL DAILY@0400 PRN PRN Reason: Extra cloth needed Stop: 04/25/18 03:59 Dextrose (D50w Vial) 50 ml IV.PUSH UNSCH PRN PRN Reason: PER HYPOGLYCEMIA PROTOCOL Glucagon (Glucagon Inj) 1 mg OTHER PRN PRN PRN Reason: for Hypoglycemia Protocol Hydralazine HCl (Apresoline Inj) 10 mg IV.PUSH Q30M PRN PRN Reason: sbp > 160, dbp > 95 Hydromorphone HCl (Dilaudid Pf Inj) 0.5 mg IV.PUSH Q1H PRN PRN Reason: pain 8-10 or not taking po Last Admin: 04/19/18 10:03 Dose: 0.5 mg Potassium Chloride (Kcl 40 Meq Premix Inj) 40 meq in 100 mls @ 25 mls/hr IV.SIG Q2H PRN PRN Reason: For Potassium 2.8 - 3.2 mEq/L Potassium Chloride (Kcl 20 Meq Premix Inj) 20 meq in 100 mls @ 50 mls/hr IV.SIG Q2H PRN PRN Reason: For Potassium 3.3 - 3.5 mEq/L Last Admin: 04/19/18 09:58 Dose: 50 mls/hr Potassium Chloride (Kcl 40 Meq Premix Inj) 40 meq in 100 mls @ 25 mls/hr IV.SIG UNSCH PRN PRN Reason: For Potassium 3.3 - 3.5 mEq/L Sodium Phosphate 30 mmol/ (Sodium Chloride) 260 mls @ 42 mls/hr IV.SIG UNSCH PRN PRN Reason: For Phosphorus < 2.5 mg/dL Potassium Phosphate 30 mmol/ (Sodium Chloride) 260 mls @ 42 mls/hr IV.SIG UNSCH PRN PRN Reason: SEE LABEL COMMENTS Magnesium Sulfate 4 gm/ Sodium (Chloride) 100 mls @ 50 mls/hr IV.SIG UNSCH PRN PRN Reason: For Magnesium 0.9 - 1.1 mg/dL Potassium Chloride (Kcl 20 Meq Premix Inj) 20 meq in 100 mls @ 50 mls/hr IV.SIG Q2H PRN PRN Reason: For Potassium 2.8 - 3.2 mEq/L Lactated Ringer's (Lr 1000 Ml Inj) 1,000 mls @ 120 mls/hr IV.CONT .Q8H20M MELVIN Last Admin: 04/19/18 08:06 Dose: 120 mls/hr Magnesium Sulfate 2 gm/ Sodium (Chloride) 100 mls @ 50 mls/hr IV.SIG UNSCH PRN PRN Reason: For Magnesium 1.2 - 1.6 mg/dL Aztreonam 2 gm/ Sodium (Chloride) 100 mls @ 200 mls/hr IV.SIG Q8H [facility] Last Admin: 04/19/18 09:55 Dose: 200 mls/hr Metronidazole/Sodium Chloride (Flagyl 500 Mg Inj) 100 mls @ 100 mls/hr IV.SIG Q8H [facility] Last Admin: 04/19/18 10:04 Dose: 100 mls/hr Insulin Human Regular (Novolin R Correctional Sugar Inj) 0 units SQ Q6HR [facility]; Protocol Last Admin: 04/19/18 08:38 Dose: Not Given Labetalol HCl (Trandate Inj) 10 mg IV.PUSH Q20M PRN PRN Reason: sbp > 160 or DBP > 95 Magnesium Oxide (Mag-Ox) 800 mg PO UNSCH PRN PRN Reason: For Magnesium 1.2 - 1.6 mg/dL Ondansetron HCl (Zofran Inj) 4 mg IV.PUSH Q6H PRN PRN Reason: NAUSEA OR VOMITING Pantoprazole Sodium (Protonix Inj) 40 mg IV.PUSH Q24H [facility] Last Admin: 04/19/18 09:54 Dose: 40 mg Potassium Chloride (Kcl Liq) 40 meq PO UNSCH PRN PRN Reason: Potassium level 3.3-3.5 mEq/L Potassium Chloride (Kcl Liq) 40 meq PO UNSCH PRN PRN Reason: POTASSIUM LESS THAN 3.5 Potassium Phosphate (K-Phos Original) 2,000 mg PO Q4H PRN PRN Reason: Phosphorus Less Than 2.5 mg/dL Potassium Phosphate (K-Phos Original) 2,000 mg PO UNSCH PRN PRN Reason: SEE LABEL COMMENTS Sodium Chloride (Ns Flush) 2 ml IV.FLUSH UNSCH PRN PRN Reason: FLUSH AFTER USING IV ACCESS Tamsulosin HCl (Flomax) 0.4 mg PO DAILY [facility] Last Admin: 04/19/18 10:01 Dose: 0.4 mg Allergies Allergy/AdvReac Type Severity Reaction Status Date / Time penicillin G Allergy Intermediate Rash Verified 04/18/18 23:22 Home Medications Medication Instructions Recorded Confirmed Type aspirin 81 mg PO DAILY 04/19/18 04/19/18 History glipizide 5 mg PO DAILY 04/19/18 04/19/18 History metformin 500 mg PO BID 04/19/18 04/19/18 History tamsulosin [Flomax] 0.4 mg PO DAILY 04/19/18 04/19/18 History Exam Vital signs: Vital Signs 04/18/18 22:03 04/18/18 22:41 04/19/18 00:47 Temperature 102 F H 102.9 F H 103.0 F H Pulse Rate 131 H 128 H 121 H Respiratory Rate 20 15 Blood Pressure 161/76 H 153/67 H Pulse Oximetry 93 L 93 L 100 04/19/18 02:10 04/19/18 03:35 04/19/18 04:10 Temperature 100.0 F H 99.8 F H Pulse Rate 118 H 112 H 101 H Respiratory Rate 15 15 Blood Pressure 106/68 106/59 L Pulse Oximetry 93 L 94 L 96 04/19/18 04:30 04/19/18 05:00 04/19/18 06:00 Temperature 99.1 F Pulse Rate 104 H 104 H 99 H Respiratory Rate 25 H 23 20 Blood Pressure 128/67 119/57 L Pulse Oximetry 96 96 98 04/19/18 08:00 04/19/18 09:56 Temperature Pulse Rate Respiratory Rate 20 Blood Pressure Pulse Oximetry 95 Intake & Output 04/18/18 04/19/18 04/19/18 18:59 06:59 18:59 Intake Total 3450 / 3450 Balance 3450 / 3450 Weight 106.7 kg Intake: IV 3450 / 3450 Azactam Inj 1,000 MG In NS Inj 100 / 100 100 ML @ 200 mls/hr IV.SIG ONCE ONE Rx#:[id number] NS Inj 1,000 ML @ 1000 mls/hr 3000 / 3000 IV.SIG BOLUS MELVIN Rx#:[id number] Vancomycin Inj 1,000 MG In NS 250 / 250 Inj 250 ML @ 250 mls/hr IV.SIG ONCE ONE Rx#:[id number] Flagyl 500 MG Inj 100 ML @ 100 100 / 100 mls/hr IV.SIG ONCE ONE Rx#: [id number] Oral 0 / 0 Other: # Voids 1 Date of Last Bowel Movement 04/19/18 04/19/18 # Bowel Movements 1 Weight On Admission 115 kg Narrative: GENERAL: Awake and alert. No acute distress. Cooperative. HEAD: Normocephalic. Atraumatic. EYES: Pupils equal round and reactive to light bilaterally. + scleral icterus. ENT: Moist oral mucosa. NECK: Trachea midline. CHEST: Nonlabored breathing. No respiratory distress. CARDIOVASCULAR: Sinus tachycardia. ABDOMEN: Mild distention. Severe right upper quadrant and epigastric tenderness to palpation. EXTREMITIES: No cyanosis or edema. SKIN: Warm, dry, jaundiced. Results - Labs 04/18/18 22:45 04/19/18 04:37 Laboratory Results - last 24 hr 04/18/18 04/18/18 04/18/18 22:45 22:45 22:45 CBC w Diff Slide review pending WBC 7.4 RBC 5.56 Hgb 12.3 L Hct 38.7 L MCV 69.6 L MCH 22.2 L MCHC 31.9 L RDW 15.1 Plt Count 175 MPV 9.8 Neut % (Auto) 92.4 H Lymph % (Auto) 4.8 L [place] % (Auto) 2.3 Eos % (Auto) 0.1 Baso % (Auto) 0.4 Neut # (Auto) 6.8 Lymph # (Auto) 0.4 L [place] # (Auto) 0.2 Eos # (Auto) 0.0 Baso # (Auto) 0.0 WBC Differential . Diff Scan Auto diff confirmed Differential Comment . Dimorphic RBCs Present H Ovalocytes 2+ H [place] Cells 1+ H Keratocytes 2+ H PT 12.6 H INR 1.2 APTT 34.5 H Sodium 134 L Potassium 3.6 Chloride 99 Carbon Dioxide 26.1 Anion Gap 9 BUN 21 H Creatinine 1.90 H Estimated GFR 36 L POC Glucose Random Glucose 292 H Lactic Acid Calcium 9.0 Total Bilirubin Direct Bilirubin Indirect Bilirubin AST ALT Alkaline Phosphatase Troponin I Total Protein Albumin Lipase Urine Color Urine Clarity Urine pH Ur Specific [place] Urine Protein Urine Glucose (UA) Urine Ketones Urine Occult Blood Urine Nitrate Urine Bilirubin Urine Ictotest Urine Urobilinogen Ur Leukocyte Esterase Urine RBC Urine WBC Ur Squamous Epith Cells Amorphous Sediment Urine Bacteria Fine Granular Casts WBC Casts Urine Mucus Micro UA Comment Ur Microscopic Review Urine Culture Comments 04/18/18 04/18/18 04/18/18 22:45 22:45 23:22 CBC w Diff WBC RBC Hgb Hct MCV MCH MCHC RDW Plt Count MPV Neut % (Auto) Lymph % (Auto) [place] % (Auto) Eos % (Auto) Baso % (Auto) Neut # (Auto) Lymph # (Auto) [place] # (Auto) Eos # (Auto) Baso # (Auto) WBC Differential Diff Scan Differential Comment Dimorphic RBCs Ovalocytes [place] Cells Keratocytes PT INR APTT Sodium Potassium Chloride Carbon Dioxide Anion Gap BUN Creatinine Estimated GFR POC Glucose Random Glucose Lactic Acid 3.2 H Calcium Total Bilirubin 5.7 H Direct Bilirubin 4.3 H Indirect Bilirubin 1.4 H AST 131 H ALT 338 H Alkaline Phosphatase 221 H Troponin I 0.26 H Total Protein 8.1 Albumin 3.3 L Lipase 135 Urine Color Yellow Urine Clarity Clear Urine pH 5.5 Ur Specific [place] Greater/equal 1.030 Urine Protein 100 H Urine Glucose (UA) 100 H Urine Ketones Trace H Urine Occult Blood Large H Urine Nitrate Positive H Urine Bilirubin Large H Urine Ictotest Positive H Urine Urobilinogen 4.0 H Ur Leukocyte Esterase Negative Urine RBC 51-189 H Urine WBC 21-50 H Ur Squamous Epith Cells 0-5 Amorphous Sediment Many H Urine Bacteria Moderate H Fine Granular Casts 11-30 H WBC Casts 4-10 H Urine Mucus Few H Micro UA Comment Cath-culture ind Ur Microscopic Review Microscopic reviewed Urine Culture Comments Cath-cult indicated 04/19/18 04/19/18 04/19/18 02:30 04:37 08:10 CBC w Diff WBC RBC Hgb Hct MCV MCH MCHC RDW Plt Count MPV Neut % (Auto) Lymph % (Auto) [place] % (Auto) Eos % (Auto) Baso % (Auto) Neut # (Auto) Lymph # (Auto) [place] # (Auto) Eos # (Auto) Baso # (Auto) WBC Differential Diff Scan Differential Comment Dimorphic RBCs Ovalocytes [place] Cells Keratocytes PT INR APTT Sodium 140 Potassium 3.3 L Chloride 107 D Carbon Dioxide 23.5 Anion Gap 10 BUN 22 H Creatinine 1.68 H Estimated GFR 41 L POC Glucose 196 H Random Glucose 220 H Lactic Acid 1.2 Calcium 7.7 L D Total Bilirubin Direct Bilirubin Indirect Bilirubin AST ALT Alkaline Phosphatase Troponin I Total Protein Albumin Lipase Urine Color Urine Clarity Urine pH Ur Specific [place] Urine Protein Urine Glucose (UA) Urine Ketones Urine Occult Blood Urine Nitrate Urine Bilirubin Urine Ictotest Urine Urobilinogen Ur Leukocyte Esterase Urine RBC Urine WBC Ur Squamous Epith Cells Amorphous Sediment Urine Bacteria Fine Granular Casts WBC Casts Urine Mucus Micro UA Comment Ur Microscopic Review Urine Culture Comments - Imaging Imaging: ITS Impressions Chest X-Ray 04/18/18 22:36 CONCLUSION: No acute disease Abdomen/Pelvis CT 04/19/18 00:18 CONCLUSION: 1. Severe changes of cholecystitis. There is no significant gallbladder lumen to allow for percutaneous cholecystostomy. 2. Hepatosplenomegaly. Cholangiopancreatography MRI 04/19/18 04:18 CONCLUSION: 1. Abnormal appearance to the gallbladder and hepatic parenchyma immediately surrounding the gallbladder fossa (rim sign) with multiple gallstones and significant gallbladder wall thickening. Differential considerations include acute cholecystitis and gangrenous cholecystitis. 2. No dilation of the intra or extrahepatic biliary system. CT scan - abdomen: report reviewed, image reviewed CT scan - pelvis: report reviewed, image reviewed Additional studies: MRCP report and images reviewed Assessment and Plan - Assessment (1) Acute cholecystitis due to biliary calculus Code(s): K80.00 - Calculus of gallbladder with acute cholecystitis without obstruction Status: Acute (2) Hyperbilirubinemia Code(s): E80.6 - Other disorders of bilirubin metabolism Status: Acute (3) Severe sepsis Code(s): A41.9 - Sepsis, unspecified organism; R65.20 - Severe sepsis without septic shock Status: Acute - Plan Patient has acute cholecystitis causing severe sepsis. There is a question of possible cholangitis or choledocholithiasis although there were no stones identified in the common bile duct. Surgery would have some elevated risk secondary to the amount of inflammation present and the severity of his illness. I would recommend cholecystostomy tube and discussed this with Dr. Ramez Hallman and this will be planned to be performed today.
[2018-04-19] MEDS ORDERED: fentaNYL Citrate Inj 250 MCG/5 ML Ampul ONE (12:41)
[2018-04-19] MEDS ORDERED: Levofloxacin 500 mg Premix Inj 500 MG/100 ML PIGGYBACK IV.SIG ONE (12:59)
--- NOTE | 2018-04-19 13:49 | P.RAD ---
Post Procedure Progress Note - Pre Procedure Diagnosis (1) Severe sepsis (2) Cholecystitis with cholangitis - Post Procedure Diagnosis (1) Severe sepsis (2) Cholecystitis with cholangitis - Procedure Information Procedure Date: 04/19/18 Supervising Radiologist: Fransisco Hallman Jr, MD Proceduralist/Assist: Martin Valenzuela Anesthesia: Conscious Sedation - Plan of Activity Patient to Unit: [facility] Patient Condition: Good See PACS Report for procedural detail/treatment. Drainage Procedure Fluoroscopy Cholecystostomy Placement [place] Tube Size: 6 Drainage: Stark drainage Fluid Description: Cloudy Findings: Percutaneous tequila tube placed. Turbid bile. Cholangiogram shows occlusion at CBD near ampulla. Drain placed. Sample sent for cx Plan: To [facility]
--- NOTE | 2018-04-19 14:37 | ECG ---
Date Performed: 04/18/2018 Time Performed: 23:29:54 PTAGE: 63 years EKG: SINUS TACHYCARDIA MINIMAL ST DEPRESSION ABNORMAL RHYTHM ECG NO PREVIOUS TRACING DOCTOR: Latasha Summers Interpretating Date/Time 04/19/2018 14:32:10
[2018-04-19] MEDS ORDERED: Metoprolol Inj 5 MG/5 ML Vial IV.PUSH ONE ×2 (14:55→15:00)
--- NOTE | 2018-04-19 14:59 | IR ---
EXAM DATE: 04/19/2018 2:19 PM EST AGE/SEX: 63 years / Male INDICATIONS: Patient presents with Cholecystitis in need of a Cholecystostomy tube placement. CLINICAL DATA: This is the patient's initial encounter. Patient reports that signs and symptoms have been present for 2 days and indicates a pain score of 0/10. MEDICAL/SURGICAL HISTORY: Hypertension. Diabetes. Benign Prostatic Hyperplasia. None. COMPARISON: . FLUORO TIME (min): 2:26 IMAGE SERIES: 9 RADIATION DOSE: 368mGY CAK SEDATION TIME (min): 30 CONTRAST (cc): 10 Omnipaque (iohexol) 350 MEDICATION(S): 3.5 mg midazolam (Versed) IV 175 mcg DEVICE(S): 6 Swiss 30 cm Locking VIRI drainage catheter . . PROCEDURE: 1. Ultrasound guided puncture of the gallbladder. 2. Percutaneous cholangiogram. 3. Percutaneous cholecystostomy tube placement. 4. Conscious sedation with continuous EKG and oximetry monitoring. The risks, benefits and alternatives to the procedure were explained and verbal and written consent w as obtained. The site was prepped in sterile fashion. Full sterile technique was used, including ca p, mask, sterile gloves and gown and a large sterile sheet. Hand hygiene and 2% chlorhexidine and/or betadine/alcohol prep was utilized per protocol for cutaneous antisepsis. Sterile gel and sterile p robe cover were utilized for ultrasound guidance. The skin and subcutaneous tissues were infiltrated with local anesthetic solution. With ultrasound and fluoroscopic guidance the gallbladder was punctured with an AccuStick needle. In jection of positive contrast demonstrates numerous filling defects involving the gallbladder which is diffusely edematous. The cystic duct is patent, however, there is occlusion of the common bile duct at the level of the ampulla. Reflux of contrast into the intrahepatic biliary system is noted. The in trahepatic biliary system is not dilated. It was felt that percutaneous drainage of the gallbladder b e performed given the patient's current medical status. The lack of dilatation of the intrahepatic bi liary system would prevent biliary drain placement and the level of obstruction at the level the ampu lla would make ERCP difficult. An AccuStick system was utilized to exchange for a 0.035 wire. A 0.035 guidewire was placed within the gallbladder lumen and dilatation was performed to accept the prescri bed catheter. The catheter was sutured in place using 2-0 silk suture. Turbid bile noted. A sample was sent for culture. Conscious sedation was performed with the prescribed dosages and duration as above in the presence of an independent trained radiology nurse to assist in the monitoring of the patient. EKG and oximetry remained stable throughout the procedure. The patient tolerated the procedure well and there were n o complications. The patient was sent to post anesthesia recovery in stable condition. CONCLUSION: 1. Uncomplicated percutaneous cholecystostomy as above. The patient has a patent cystic duct, howeve r, there is occlusion of the common bile duct at the level of the ampulla. This is likely relating to a stone. Cholecystostomy tube placement was felt prudent to decompress the biliary system as detaile d above. Turbid bile was noted and a sample sent to the lab for culture. Electronically signed by: Fransisco Hallman MD Board Certified Radiologist 04/19/2018 2:58 PM EST
[2018-04-19] MEDS ORDERED: Metoprolol Inj 5 MG/5 ML Vial ONE ×2 (15:18→15:25)
[2018-04-19] MEDS ORDERED: Potassium Chloride Liq 20 MEQ/15 ML UDC PO ONE (15:50)
[2018-04-19] MEDS ORDERED: Magnesium Sulfate Inj 2 GM in Sodium Chlor 0.9% Inj 96 ML IV.SIG ONE (15:51)
--- NOTE | 2018-04-19 17:35 | ECG ---
Date Performed: 04/19/2018 Time Performed: 16:00:34 PTAGE: 63 years EKG: Unclear rhythm. Possibly sinus tachycardia with premature atrial contractions. Baseline art ifact is present. Low QRS voltages in limb leads Abnormal ECG I see no definite changes compared to p rior EKG although rhythm is unclear on both. PREVIOUS TRACING : 04/18/2018 23.29 DOCTOR: Jerald Keith Interpretating Date/Time 04/19/2018 17:34:29
[2018-04-19] MEDS: dilTIAZem Inj 125 MG in Sodium Chlor 0.9% Inj 100 ML IV.CONT PRN (19:16)
[2018-04-20] MEDS: Aztreonam Inj 2 GM in Sodium Chloride 0.9% Inj 100 ML IV.SIG SCH ×2 (00:14→08:56)
[2018-04-20] MEDS: Insulin NovoLIN Regular Correctional Sugar Inj SQ SCH ×4 (00:27→18:16)
[2018-04-20] MEDS: HYDROmorphone PF Inj 0.5 MG/0.5 ML Syringe IV.PUSH PRN ×2 (00:30→08:55)
[2018-04-20] MEDS: dilTIAZem Inj 125 MG in Sodium Chlor 0.9% Inj 100 ML IV.CONT PRN ×4 (02:29→19:30)
[2018-04-20] MEDS ORDERED: Chlorhexidine Gluconate 2% 1 Pack (2 Cloths) TOPICAL PRN (04:00)
[2018-04-20] MEDS: Chlorhexidine Gluconate 2% 1 Pack (2 Cloths) TOPICAL SCH (04:22)
[2018-04-20 05:56] LABS: INR 1.1 Ratio; Prothrombin Time 11.4 sec (9.8-11.6)
[2018-04-20 05:59] LABS: Baso % (Auto) 0.5 % (0.0-2.0); Eos % (Auto) 0.1 % (0.0-4.0); Hematocrit 30.1 % (39.0-51.0); Hemoglobin 9.7 gm/dL (13.0-17.0); Lymph # (Auto) 0.7 th/mm3 (1.0-4.8); Mean Corpuscular HGB Conc 32.3 % (32.0-36.0); Mean Corpuscular Hemoglobin 21.8 pg (27.0-34.0); Mean Corpuscular Volume 67.6 fL (80.0-100.0); Mean Platelet Volume 9.1 fL (7.0-11.0); Mono # (Auto) 0.5 th/mm3 (0.0-0.9); Mono % (Auto) 10.1 % (0.0-8.0); Neut # (Auto) 3.4 th/mm3 (1.8-7.7); Neut % (Auto) 73.3 % (16.0-70.0); Platelet Count 110 th/mm3 (150-450); Red Blood Count 4.45 mil/mm3 (4.50-5.90); Red Cell Distribution Width 15.6 % (11.6-17.2); White Blood Count 4.6 th/mm3 (4.0-11.0)
[2018-04-20 07:03] LABS: Alanine Aminotransferase 145 U/L (12-78); Albumin 2.3 g/dL (3.4-5.0); Alkaline Phosphatase 147 U/L (45-117); Anion Gap 7 meq/L (5-15); Aspartate Aminotransferase 62 U/L (15-37); Blood Urea Nitrogen 15 mg/dL (7-18); Calcium 7.5 mg/dL (8.5-10.1); Carbon Dioxide 27.8 meq/L (21.0-32.0); Chloride 105 meq/L (98-107); Glomerular Filtration Rate 61 mL/min (>89); Glucose,Random 83 mg/dL (74-106); Magnesium 1.6 mg/dL (1.5-2.5); Phosphorus 1.7 mg/dL (2.5-4.9); Potassium 3.4 meq/L (3.5-5.1); Sodium 140 meq/L (136-145); Total Protein 6.2 g/dL (6.4-8.2)
[2018-04-20] MEDS: Pantoprazole Inj 40 MG Vial IV.PUSH SCH (08:55)
--- NOTE | 2018-04-20 09:54 | P.PNIM ---
Subjective Interval history: Mr. Flowers is a 63-year-old male with a history of hypertension, diabetes mellitus, BPH who presented to [facility] ED due to 2-day duration of mid abdominal pain, emesis and lethargy. Patient's son noted that he was getting jaundiced as well. Subsequently patient was brought to the emergency department. He had a fever of 102.9 F on admission and lactic acid 3.2. CT abdomen pelvis shows gallbladder wall thickening with pericholecystic fluid. He was transferred to the main hospital due to severe sepsis and possible GI evaluation with ERCP. He was initially managed in the critical care unit. Acute cholangitis Acute cholecystitis GI, general surgery following. MRCP showed acute cholecystitis versus gangrenous cholecystitis. No dilation of the intra-or extrahepatic biliary system. Surgery recommended cholecystostomy tube placement by IR which was done on 04/19. Patient is currently on aztreonam and metronidazole Patient continues to have fever. Repeat lactic acid was 1.2. We will consult infectious disease. We may have to start meropenem for severe acute cholangitis. New onset atrial fibrillation No history of any cardiac diseases. Infectious processes likely driving atrial fibrillation. Currently on Cardizem drip. Will start patient on p.o. metoprolol 25mg Q8hrs. -[id number] score would be 3 (age, HTN, DM). Will discuss about anticoagulation in coming days. -Will obtain 2D echo. Hypertension Diabetes mellitus Benign prostatic hyperplasia Continue tamsulosin 0.4 mg daily, sliding scale insulin. Currently somewhat hypotensive. No blood pressure medications indicated at this time. Goal blood glucose [id number]. Acute kidney injury Mild hypokalemia Mild hypomagnesemia Creatinine 1.68 on admission. Currently 1.19. Magnesium 1.6. Will replace with IV magnesium 2 g. P.o. potassium to correct hypokalemia. Full code. SCDs. Physical Exam Vital signs: Vital Signs 04/19/18 09:56 04/19/18 10:00 04/19/18 10:33 Temperature Pulse Rate 142 H Respiratory Rate 20 30 H 26 H Blood Pressure 128/57 L Pulse Oximetry 90 L 04/19/18 11:00 04/19/18 12:00 04/19/18 13:42 Temperature 100.9 F H Pulse Rate 154 H 118 H 115 H Respiratory Rate 29 H 27 H 27 H Blood Pressure 125/60 Pulse Oximetry 92 L 92 L 99 04/19/18 13:45 04/19/18 14:00 04/19/18 14:02 Temperature Pulse Rate 114 H 109 H 109 H Respiratory Rate 32 H 30 H 31 H Blood Pressure 130/60 121/70 Pulse Oximetry 100 100 100 04/19/18 14:31 04/19/18 14:48 04/19/18 15:00 Temperature Pulse Rate 102 H 101 H 102 H Respiratory Rate 24 26 H 34 H Blood Pressure 133/57 L 133/57 L 133/66 Pulse Oximetry 100 100 100 04/19/18 15:21 04/19/18 15:27 04/19/18 15:30 Temperature Pulse Rate 166 H 133 H 126 H Respiratory Rate 31 H 30 H 29 H Blood Pressure 126/82 131/59 L 127/64 Pulse Oximetry 99 100 98 04/19/18 15:39 04/19/18 16:00 04/19/18 16:30 Temperature 99.6 F Pulse Rate 134 H 146 H Respiratory Rate 27 H 28 H 30 H Blood Pressure 121/68 97/54 L Pulse Oximetry 98 04/19/18 17:00 04/19/18 17:30 04/19/18 18:00 Temperature 99.6 F Pulse Rate 140 H 143 H 139 H Respiratory Rate 47 H 31 H 30 H Blood Pressure 113/81 125/76 115/67 Pulse Oximetry 89 L 98 96 04/19/18 19:00 04/19/18 20:00 04/19/18 20:23 Temperature 100.6 F H Pulse Rate 141 H 138 H Respiratory Rate 22 Blood Pressure 101/62 111/60 Pulse Oximetry 100 99 04/19/18 21:00 04/19/18 22:00 04/19/18 23:00 Temperature Pulse Rate 162 H 131 H 115 H Respiratory Rate 24 24 Blood Pressure 119/64 109/67 105/54 L Pulse Oximetry 98 97 99 04/20/18 00:00 04/20/18 01:00 04/20/18 02:00 Temperature 100.5 F H Pulse Rate 129 H 116 H 118 H Respiratory Rate 19 Blood Pressure 122/67 105/60 105/56 L Pulse Oximetry 96 98 98 04/20/18 03:00 04/20/18 04:00 04/20/18 05:00 Temperature 99.9 F H Pulse Rate 117 H 105 H 100 H Respiratory Rate 24 22 20 Blood Pressure 118/56 L 94/50 L 122/53 L Pulse Oximetry 99 100 04/20/18 06:00 04/20/18 07:00 Temperature Pulse Rate 116 H 114 H Respiratory Rate 20 22 Blood Pressure 119/64 116/62 Pulse Oximetry 99 99 Intake & Output 04/19/18 04/20/18 04/20/18 18:59 06:59 18:59 Intake Total 3660 / 3660 2645 / 2645 Output Total 80 / 80 1040 / 1040 Balance 3580 / 3580 1605 / 1605 Weight 115 kg Intake: IV 2700 / 2700 1425 / 1425 LR 1000 mL Inj 1,000 ML @ 120 1000 / 1000 1000 / 1000 mls/hr IV.CONT .Q8H20M [facility] Rx#: [id number] Cardizem Inj 125 MG In NS Inj 125 / 125 100 ML @ 5 MG/HR 5 mls/hr IV. CONT TITRATE PRN Rx#:[id number] Azactam Inj 2 GM In NS Inj 100 200 / 200 100 / 100 ML @ 200 mls/hr IV.SIG Q8H [facility] Rx#:[id number] LR 1000 mL Inj 1,000 ML @ Wide 1000 / 1000 Open IV.SIG BOLUS ONE Rx#: [id number] Levaquin 500 mg Premix Inj 500 100 / 100 mg In 100 ml @ 0 mls/hr IV.SIG .STK-MED ONE Rx#:[id number] Magnesium Sulfate Inj 2 GM In 100 / 100 NS Inj 96 ML @ 50 mls/hr IV.SIG ONCE ONE Rx#:[id number] KCl 20 mEq Premix Inj 20 meq In 200 / 200 100 ml @ 50 mls/hr IV.SIG Q2H PRN Rx#:[id number] Flagyl 500 MG Inj 100 ML @ 100 200 / 200 100 / 100 mls/hr IV.SIG Q8H [facility] Rx#: [id number] Oral 960 / 960 1220 / 1220 Output: Urine 900 / 900 Wound Drainage 80 / 80 140 / 140 # 1 Right Upper Abdomen 80 / 80 140 / 140 Other: # Voids 3 Date of Last Bowel Movement 04/19/18 04/19/18 Results Labs CBC & Chem 7: 04/20/18 05:35 04/20/18 05:35 Labs: Microbiology 02/15/19 13:35 Fluid - Gallbladder Gram Stain - Final 04/18/18 22:45 Blood - Peripheral Aerobic Blood Culture - Preliminary gram negative rods 04/18/18 22:45 Blood - Peripheral Anaerobic Blood Culture - Preliminary gram negative rods 04/18/18 23:00 Blood - Peripheral Aerobic Blood Culture - Preliminary gram negative rods 04/18/18 23:00 Blood - Peripheral Anaerobic Blood Culture - Preliminary gram negative rods 04/18/18 23:22 Catheterized Urine Urine Culture - Preliminary Results Pending Imaging Imaging: Impressions Percutaneous Cholangiogram 04/19/18 00:00 CONCLUSION: 1. Uncomplicated percutaneous cholecystostomy as above. The patient has a patent cystic duct, however, there is occlusion of the common bile duct at the level of the ampulla. This is likely relating to a stone. Cholecystostomy tube placement was felt prudent to decompress the biliary system as detailed above. Turbid bile was noted and a sample sent to the lab for culture. Assessment and Plan (1) Severe sepsis: Code(s): A41.9 - Sepsis, unspecified organism; R65.20 - Severe sepsis without septic shock Status: Acute (2) Cholecystitis with cholangitis: Code(s): K81.9 - Cholecystitis, unspecified; K83.09 - Other cholangitis Status: Acute (3) UTI (urinary tract infection): Code(s): N39.0 - Urinary tract infection, site not specified Status: Acute (4) Acute cholecystitis due to biliary calculus: Code(s): K80.00 - Calculus of gallbladder with acute cholecystitis without obstruction Status: Acute (5) Hyperbilirubinemia: Code(s): E80.6 - Other disorders of bilirubin metabolism Status: Acute Progress Note: Quality VTE Deep Vein Thrombosis/Pulmonary Embolism Present on Admission: No _ (1) UTI (urinary tract infection) Qualifiers: Encounter type: Hematuria presence: without hematuria Indwelling urinary catheter type: Urinary tract infection type: acute cystitis Qualified Code(s) : N30.00 - Acute cystitis without hematuria
--- NOTE | 2018-04-20 10:02 | P.PNIM ---
Subjective Interval history: Follow-up for acute cholangitis, acute cholecystitis. Patient is currently doing well. Denies any chest pain, shortness of breath. He has had low-grade fever. He continues to be in atrial fibrillation RVR. Physical Exam Vital signs: Vital Signs 04/19/18 10:00 04/19/18 10:33 04/19/18 11:00 Temperature Pulse Rate 142 H 154 H Respiratory Rate 30 H 26 H 29 H Blood Pressure 128/57 L 125/60 Pulse Oximetry 90 L 92 L 04/19/18 12:00 04/19/18 13:42 04/19/18 13:45 Temperature 100.9 F H Pulse Rate 118 H 115 H 114 H Respiratory Rate 27 H 27 H 32 H Blood Pressure 130/60 Pulse Oximetry 92 L 99 100 04/19/18 14:00 04/19/18 14:02 04/19/18 14:31 Temperature Pulse Rate 109 H 109 H 102 H Respiratory Rate 30 H 31 H 24 Blood Pressure 121/70 133/57 L Pulse Oximetry 100 100 100 04/19/18 14:48 04/19/18 15:00 04/19/18 15:21 Temperature Pulse Rate 101 H 102 H 166 H Respiratory Rate 26 H 34 H 31 H Blood Pressure 133/57 L 133/66 126/82 Pulse Oximetry 100 100 99 04/19/18 15:27 04/19/18 15:30 04/19/18 15:39 Temperature Pulse Rate 133 H 126 H Respiratory Rate 30 H 29 H 27 H Blood Pressure 131/59 L 127/64 Pulse Oximetry 100 98 04/19/18 16:00 04/19/18 16:30 04/19/18 17:00 Temperature 99.6 F Pulse Rate 134 H 146 H 140 H Respiratory Rate 28 H 30 H 47 H Blood Pressure 121/68 97/54 L 113/81 Pulse Oximetry 98 89 L 04/19/18 17:30 04/19/18 18:00 04/19/18 19:00 Temperature 99.6 F Pulse Rate 143 H 139 H 141 H Respiratory Rate 31 H 30 H Blood Pressure 125/76 115/67 101/62 Pulse Oximetry 98 96 04/19/18 20:00 04/19/18 20:23 04/19/18 21:00 Temperature 100.6 F H Pulse Rate 138 H 162 H Respiratory Rate 22 24 Blood Pressure 111/60 119/64 Pulse Oximetry 100 99 98 04/19/18 22:00 04/19/18 23:00 04/20/18 00:00 Temperature 100.5 F H Pulse Rate 131 H 115 H 129 H Respiratory Rate 24 19 Blood Pressure 109/67 105/54 L 122/67 Pulse Oximetry 97 99 96 04/20/18 01:00 04/20/18 02:00 04/20/18 03:00 Temperature Pulse Rate 116 H 118 H 117 H Respiratory Rate 24 Blood Pressure 105/60 105/56 L 118/56 L Pulse Oximetry 98 98 04/20/18 04:00 04/20/18 05:00 04/20/18 06:00 Temperature 99.9 F H Pulse Rate 105 H 100 H 116 H Respiratory Rate 22 20 20 Blood Pressure 94/50 L 122/53 L 119/64 Pulse Oximetry 99 100 99 04/20/18 07:00 Temperature Pulse Rate 114 H Respiratory Rate 22 Blood Pressure 116/62 Pulse Oximetry 99 Intake & Output 04/19/18 04/20/18 04/20/18 18:59 06:59 18:59 Intake Total 3660 / 3660 2645 / 2645 Output Total 80 / 80 1040 / 1040 Balance 3580 / 3580 1605 / 1605 Weight 115 kg Intake: IV 2700 / 2700 1425 / 1425 LR 1000 mL Inj 1,000 ML @ 120 1000 / 1000 1000 / 1000 mls/hr IV.CONT .Q8H20M [facility] Rx#: [id number] Cardizem Inj 125 MG In NS Inj 125 / 125 100 ML @ 5 MG/HR 5 mls/hr IV. CONT TITRATE PRN Rx#:[id number] Azactam Inj 2 GM In NS Inj 100 200 / 200 100 / 100 ML @ 200 mls/hr IV.SIG Q8H [facility] Rx#:[id number] LR 1000 mL Inj 1,000 ML @ Wide 1000 / 1000 Open IV.SIG BOLUS ONE Rx#: [id number] Levaquin 500 mg Premix Inj 500 100 / 100 mg In 100 ml @ 0 mls/hr IV.SIG .STK-MED ONE Rx#:[id number] Magnesium Sulfate Inj 2 GM In 100 / 100 NS Inj 96 ML @ 50 mls/hr IV.SIG ONCE ONE Rx#:[id number] KCl 20 mEq Premix Inj 20 meq In 200 / 200 100 ml @ 50 mls/hr IV.SIG Q2H PRN Rx#:[id number] Flagyl 500 MG Inj 100 ML @ 100 200 / 200 100 / 100 mls/hr IV.SIG Q8H [facility] Rx#: [id number] Oral 960 / 960 1220 / 1220 Output: Urine 900 / 900 Wound Drainage 80 / 80 140 / 140 # 1 Right Upper Abdomen 80 / 80 140 / 140 Other: # Voids 3 Date of Last Bowel Movement 04/19/18 04/19/18 Narrative: GENERAL: Well-nourished, well-developed patient. SKIN: Warm and dry. HEAD: Normocephalic. EYES: No scleral icterus. No injection or drainage. NECK: Supple, trachea midline. No JVD or lymphadenopathy. CARDIOVASCULAR: Irregularly irregular, tachycardic without murmurs, gallops, or rubs. RESPIRATORY: Breath sounds equal bilaterally. No accessory muscle use. GASTROINTESTINAL: Abdomen soft, non-tender, nondistended. Cholecystostomy tube in place. MUSCULOSKELETAL: No cyanosis, or edema. BACK: Nontender without obvious deformity. No CVA tenderness. Results Labs CBC & Chem 7: 04/20/18 05:35 04/20/18 05:35 Labs: Microbiology 04/18/18 23:22 Catheterized Urine Urine Culture - Preliminary No growth in 24 hours 04/19/18 13:35 Fluid - Gallbladder Gram Stain - Final 04/18/18 22:45 Blood - Peripheral Aerobic Blood Culture - Preliminary gram negative rods 04/18/18 22:45 Blood - Peripheral Anaerobic Blood Culture - Preliminary gram negative rods 04/18/18 23:00 Blood - Peripheral Aerobic Blood Culture - Preliminary gram negative rods 04/18/18 23:00 Blood - Peripheral Anaerobic Blood Culture - Preliminary gram negative rods Imaging Imaging: Impressions Percutaneous Cholangiogram 04/19/18 00:00 CONCLUSION: 1. Uncomplicated percutaneous cholecystostomy as above. The patient has a patent cystic duct, however, there is occlusion of the common bile duct at the level of the ampulla. This is likely relating to a stone. Cholecystostomy tube placement was felt prudent to decompress the biliary system as detailed above. Turbid bile was noted and a sample sent to the lab for culture. Assessment and Plan (1) Severe sepsis: Code(s): A41.9 - Sepsis, unspecified organism; R65.20 - Severe sepsis without septic shock Status: Acute (2) Cholecystitis with cholangitis: Code(s): K81.9 - Cholecystitis, unspecified; K83.09 - Other cholangitis Status: Acute (3) UTI (urinary tract infection): Code(s): N39.0 - Urinary tract infection, site not specified Status: Acute (4) Acute cholecystitis due to biliary calculus: Code(s): K80.00 - Calculus of gallbladder with acute cholecystitis without obstruction Status: Acute (5) Hyperbilirubinemia: Code(s): E80.6 - Other disorders of bilirubin metabolism Status: Acute Plan Mr. Flowers is a 63-year-old male with a history of hypertension, diabetes mellitus, BPH who presented to [facility] ED due to 2-day duration of mid abdominal pain, emesis and lethargy. Patient's son noted that he was getting jaundiced as well. Subsequently patient was brought to the emergency department. He had a fever of 102.9 F on admission and lactic acid 3.2. CT abdomen pelvis shows gallbladder wall thickening with pericholecystic fluid. He was transferred to the main hospital due to severe sepsis and possible GI evaluation with ERCP. He was initially managed in the critical care unit. Acute cholangitis Acute cholecystitis GI, general surgery following. MRCP showed acute cholecystitis versus gangrenous cholecystitis. No dilation of the intra-or extrahepatic biliary system. Surgery recommended cholecystostomy tube placement by IR which was done on 04/19. Patient is currently on aztreonam and metronidazole Patient continues to have fever. Repeat lactic acid was 1.2. We will consult infectious disease. We may have to start meropenem for severe acute cholangitis. New onset atrial fibrillation No history of any cardiac diseases. Infectious processes likely driving atrial fibrillation. Currently on Cardizem drip. Will start patient on p.o. metoprolol 25mg Q8hrs. -[id number] score would be 3 (age, HTN, DM). Will discuss about anticoagulation in coming days. -Will obtain 2D echo. Hypertension Diabetes mellitus Benign prostatic hyperplasia Continue tamsulosin 0.4 mg daily, sliding scale insulin. Currently somewhat hypotensive. No blood pressure medications indicated at this time. Goal blood glucose [id number]. Acute kidney injury Mild hypokalemia Mild hypomagnesemia Creatinine 1.68 on admission. Currently 1.19. Magnesium 1.6. Will replace with IV magnesium 2 g. P.o. potassium to correct hypokalemia. Full code. SCDs. Progress Note: Quality VTE Deep Vein Thrombosis/Pulmonary Embolism Present on Admission: No _ (1) UTI (urinary tract infection) Qualifiers: Encounter type: Hematuria presence: without hematuria Indwelling urinary catheter type: Urinary tract infection type: acute cystitis Qualified Code(s) : N30.00 - Acute cystitis without hematuria
[2018-04-20] MEDS: Mag Sulf 1 gm/100 ml Premix 100 ML IV.SIG SCH ×2 (13:19→18:15)
[2018-04-20] MEDS: Metoprolol Tartrate 25 MG Tablet PO SCH ×2 (13:19→18:34)
--- NOTE | 2018-04-20 15:03 | P.CONID ---
History of Present Illness Service: ID Consult date: 04/20/18 Requesting Physician: Rupali Ruggiero Reason for Consult: sepsis Primary Care Provider: Cholo Marin MD Chief Complaint: chills/abdominal pain. History of Present Illness: 63 yo male with h/o DM presented with 3 days of RUq pain, fevers up to 103 maliseCT showed sever calculous cholecytits same was confirmed on MRCP Gen surgery was consuted, rec'd cholecystostom placement by IR that was done yday Delayed cholectectomty is planned Pt states he feels better after the procedure, however cont to have low grade fever + blood clx 4/4 bottles with GNBs as well as GNBs in bile Pt was started on azactam, flagyl and cont to have fever abx were initially azatam, flagyl (PCN allergy - pt does not know what kind of reaction he had) Review of Systems All other systems reviewed negative except as stated in HPI PMFSH - History History Provided By: Family Member - Medical History Medical History: Medical History (Last Reviewed 04/20/18 @ 15:05 by Rebecca Yan MD) BPH (benign prostatic hyperplasia) Diabetes HTN (hypertension) - Surgical History Surgical History: Surgical History (Last Reviewed 04/20/18 @ 15:05 by Rebecca Yan MD) No history of previous surgery - Family History Family History: Family History (Last Reviewed 04/20/18 @ 15:05 by Rebecca Yan MD) Mother Breast cancer Father Stroke - Social History I have reviewed the patient's Social History: Yes - Tobacco History Second Hand Smoke Exposure: No Tobacco Use In Past 30 Days: No Smoking Status: Never smoker - Alcohol History How Often Do You Have a Drink Containing Alcohol: Never - Substance Use History Substance History: No History of Abuse - Travel History Recent Travel in the [place] Within the Last 8 Weeks: No Recent Travel Out of the Country Within the Last 8 Weeks: No - Immunization History Tetanus Immunization: Unsure Medications and Allergies Active Medications: Active Medications Albuterol (Duoneb Neb (Prn)) 1 ampul NEB Q2HR NEB PRN PRN Reason: WHEEZING Chlorhexidine Gluconate (Chlorhexidine 2% Cloth) 3 pack TOPICAL DAILY@0400 [facility] Stop: 04/25/18 03:59 Last Admin: 04/20/18 04:22 Dose: Not Given Chlorhexidine Gluconate (Chlorhexidine 2% Cloth) 3 pack TOPICAL DAILY@0400 PRN PRN Reason: Extra cloth needed Stop: 04/25/18 03:59 Dextrose (D50w Vial) 50 ml IV.PUSH UNSCH PRN PRN Reason: PER HYPOGLYCEMIA PROTOCOL Glucagon (Glucagon Inj) 1 mg OTHER PRN PRN PRN Reason: for Hypoglycemia Protocol Hydralazine HCl (Apresoline Inj) 10 mg IV.PUSH Q30M PRN PRN Reason: sbp > 160, dbp > 95 Hydromorphone HCl (Dilaudid Pf Inj) 0.5 mg IV.PUSH Q1H PRN PRN Reason: pain 8-10 or not taking po Last Admin: 04/20/18 08:55 Dose: 0.5 mg Potassium Chloride (Kcl 40 Meq Premix Inj) 40 meq in 100 mls @ 25 mls/hr IV.SIG Q2H PRN PRN Reason: For Potassium 2.8 - 3.2 mEq/L Potassium Chloride (Kcl 20 Meq Premix Inj) 20 meq in 100 mls @ 50 mls/hr IV.SIG Q2H PRN PRN Reason: For Potassium 3.3 - 3.5 mEq/L Last Infusion: 04/19/18 16:46 Dose: Infused Potassium Chloride (Kcl 40 Meq Premix Inj) 40 meq in 100 mls @ 25 mls/hr IV.SIG UNSCH PRN PRN Reason: For Potassium 3.3 - 3.5 mEq/L Sodium Phosphate 30 mmol/ (Sodium Chloride) 260 mls @ 42 mls/hr IV.SIG UNSCH PRN PRN Reason: For Phosphorus < 2.5 mg/dL Potassium Phosphate 30 mmol/ (Sodium Chloride) 260 mls @ 42 mls/hr IV.SIG UNSCH PRN PRN Reason: SEE LABEL COMMENTS Magnesium Sulfate 4 gm/ Sodium (Chloride) 100 mls @ 50 mls/hr IV.SIG UNSCH PRN PRN Reason: For Magnesium 0.9 - 1.1 mg/dL Potassium Chloride (Kcl 20 Meq Premix Inj) 20 meq in 100 mls @ 50 mls/hr IV.SIG Q2H PRN PRN Reason: For Potassium 2.8 - 3.2 mEq/L Lactated Ringer's (Lr 1000 Ml Inj) 1,000 mls @ 120 mls/hr IV.CONT .Q8H20M MELVIN Last Infusion: 04/20/18 11:47 Dose: 120 mls/hr Magnesium Sulfate 2 gm/ Sodium (Chloride) 100 mls @ 50 mls/hr IV.SIG UNSCH PRN PRN Reason: For Magnesium 1.2 - 1.6 mg/dL Diltiazem HCl 125 mg/ Sodium (Chloride) 125 mls @ 5 mls/hr IV.CONT TITRATE PRN ; Protocol PRN Reason: Per Protocol Last Admin: 04/20/18 11:40 Dose: 15 mg/hr, 15 mls/hr Imipenem/Cilastatin Sodium 500 (mg/ Sodium Chloride) 100 mls @ 200 mls/hr IV.SIG Q6HR [facility] Last Admin: 04/20/18 13:21 Dose: 200 mls/hr Insulin Human Regular (Novolin R Correctional Sugar Inj) 0 units SQ Q6HR [facility]; Protocol Last Admin: 04/20/18 06:45 Dose: Not Given Labetalol HCl (Trandate Inj) 10 mg IV.PUSH Q20M PRN PRN Reason: sbp > 160 or DBP > 95 Magnesium Oxide (Mag-Ox) 800 mg PO UNSCH PRN PRN Reason: For Magnesium 1.2 - 1.6 mg/dL Metoprolol Tartrate (Lopressor) 25 mg PO Q8H [facility] Last Admin: 04/20/18 13:19 Dose: 25 mg Ondansetron HCl (Zofran Inj) 4 mg IV.PUSH Q6H PRN PRN Reason: NAUSEA OR VOMITING Pantoprazole Sodium (Protonix Inj) 40 mg IV.PUSH Q24H [facility] Last Admin: 04/20/18 08:55 Dose: 40 mg Potassium Chloride (Kcl Liq) 40 meq PO UNSCH PRN PRN Reason: Potassium level 3.3-3.5 mEq/L Potassium Chloride (Kcl Liq) 40 meq PO UNSCH PRN PRN Reason: POTASSIUM LESS THAN 3.5 Potassium Chloride (K-Dur) 20 meq PO BID [facility] Stop: 04/22/18 20:59 Potassium Phosphate (K-Phos Original) 2,000 mg PO Q4H PRN PRN Reason: Phosphorus Less Than 2.5 mg/dL Potassium Phosphate (K-Phos Original) 2,000 mg PO UNSCH PRN PRN Reason: SEE LABEL COMMENTS Sodium Chloride (Ns Flush) 2 ml IV.FLUSH UNSCH PRN PRN Reason: FLUSH AFTER USING IV ACCESS Tamsulosin HCl (Flomax) 0.4 mg PO DAILY MELV[facility] Last Admin: 04/20/18 08:55 Dose: 0.4 mg Allergies Allergy/AdvReac Type Severity Reaction Status Date / Time penicillin G Allergy Intermediate Rash Verified 04/18/18 23:22 Home Medications Medication Instructions Recorded Confirmed Type aspirin 81 mg PO DAILY 04/19/18 04/19/18 History glipizide 5 mg PO DAILY 04/19/18 04/19/18 History metformin 500 mg PO BID 04/19/18 04/19/18 History tamsulosin [Flomax] 0.4 mg PO DAILY 04/19/18 04/19/18 History Exam Vital signs: Vital Signs 04/19/18 14:48 04/19/18 15:00 04/19/18 15:21 Temperature Pulse Rate 101 H 102 H 166 H Respiratory Rate 26 H 34 H 31 H Blood Pressure 133/57 L 133/66 126/82 Pulse Oximetry 100 100 99 04/19/18 15:27 04/19/18 15:30 04/19/18 15:39 Temperature Pulse Rate 133 H 126 H Respiratory Rate 30 H 29 H 27 H Blood Pressure 131/59 L 127/64 Pulse Oximetry 100 98 04/19/18 16:00 04/19/18 16:30 04/19/18 17:00 Temperature 99.6 F Pulse Rate 134 H 146 H 140 H Respiratory Rate 28 H 30 H 47 H Blood Pressure 121/68 97/54 L 113/81 Pulse Oximetry 98 89 L 04/19/18 17:30 04/19/18 18:00 04/19/18 19:00 Temperature 99.6 F Pulse Rate 143 H 139 H 141 H Respiratory Rate 31 H 30 H Blood Pressure 125/76 115/67 101/62 Pulse Oximetry 98 96 04/19/18 20:00 04/19/18 20:23 04/19/18 21:00 Temperature 100.6 F H Pulse Rate 138 H 162 H Respiratory Rate 22 24 Blood Pressure 111/60 119/64 Pulse Oximetry 100 99 98 04/19/18 22:00 04/19/18 23:00 04/20/18 00:00 Temperature 100.5 F H Pulse Rate 131 H 115 H 129 H Respiratory Rate 24 19 Blood Pressure 109/67 105/54 L 122/67 Pulse Oximetry 97 99 96 04/20/18 01:00 04/20/18 02:00 04/20/18 03:00 Temperature Pulse Rate 116 H 118 H 117 H Respiratory Rate 24 Blood Pressure 105/60 105/56 L 118/56 L Pulse Oximetry 98 98 04/20/18 04:00 04/20/18 05:00 04/20/18 06:00 Temperature 99.9 F H Pulse Rate 105 H 100 H 116 H Respiratory Rate 22 20 20 Blood Pressure 94/50 L 122/53 L 119/64 Pulse Oximetry 99 100 99 04/20/18 07:00 Temperature Pulse Rate 114 H Respiratory Rate 22 Blood Pressure 116/62 Pulse Oximetry 99 Intake & Output 04/19/18 04/20/18 04/20/18 18:59 06:59 18:59 Intake Total 3660 / 3660 2645 / 2645 125 / 125 Output Total 80 / 80 1040 / 1040 Balance 3580 / 3580 1605 / 1605 125 / 125 Weight 115 kg Intake: IV 2700 / 2700 1425 / 1425 125 / 125 LR 1000 mL Inj 1,000 ML @ 120 1000 / 1000 1000 / 1000 mls/hr IV.CONT .Q8H20M MELV[facility] Rx#: [id number] Cardizem Inj 125 MG In NS Inj 125 / 125 125 / 125 100 ML @ 5 MG/HR 5 mls/hr IV. CONT TITRATE PRN Rx#:[id number] Azactam Inj 2 GM In NS Inj 100 200 / 200 100 / 100 ML @ 200 mls/hr IV.SIG Q8H [facility] Rx#:[id number] LR 1000 mL Inj 1,000 ML @ Wide 1000 / 1000 Open IV.SIG BOLUS ONE Rx#: [id number] Levaquin 500 mg Premix Inj 500 100 / 100 mg In 100 ml @ 0 mls/hr IV.SIG .STK-MED ONE Rx#:[id number] Magnesium Sulfate Inj 2 GM In 100 / 100 NS Inj 96 ML @ 50 mls/hr IV.SIG ONCE ONE Rx#:[id number] KCl 20 mEq Premix Inj 20 meq In 200 / 200 100 ml @ 50 mls/hr IV.SIG Q2H PRN Rx#:[id number] Flagyl 500 MG Inj 100 ML @ 100 200 / 200 100 / 100 mls/hr IV.SIG Q8H MELVIN Rx#: [id number] Oral 960 / 960 1220 / 1220 Output: Urine 900 / 900 Wound Drainage 80 / 80 140 / 140 # 1 Right Upper Abdomen 80 / 80 140 / 140 Other: # Voids 3 Date of Last Bowel Movement 04/19/18 04/19/18 - Constitutional no acute distress, obese - Routine HEENT Exam Head: Present: normocephalic, atraumatic Eye: Present: EOMI, PERRL, conjunctival icterus ENT: Present: mucous membranes moist, oropharynx clear - Routine Neck Exam Present: supple, full ROM - Routine Respiratory Exam Present: CTA bilaterally. Absent: decreased breath sounds, respiratory distress - Routine Cardiovascular Exam Present: RRR (on moniotr), S1, S2, irregularly irregular. Absent: murmur, gallop, rubs - Routine Abdominal Exam Present: soft, normoactive bowel sounds, tenderness (RUQ), rebound (RUQ), guarding (RUQ), drain (biliary in place with cloudy bile). Absent: distended, organomegaly - Routine Extremities Exam Absent: cyanosis, clubbing, edema - Routine Skin Exam Present: dry, warm, jaundice. Absent: rash - Routine Neurological Exam Present: alert, oriented X3, CN II-XII intact. Absent: sensory deficit, motor deficit - Routine Psychiatric Exam Present: normal affect, cooperative Results - Labs CBC & Chem 7: 04/20/18 05:35 04/20/18 05:35 Labs: Laboratory Results - last 24 hr 04/19/18 04/19/18 04/20/18 18:00 20:40 00:25 WBC RBC Hgb Hct MCV MCH MCHC RDW Plt Count MPV Neut % (Auto) Lymph % (Auto) [place] % (Auto) Eos % (Auto) Baso % (Auto) Neut # (Auto) Lymph # (Auto) [place] # (Auto) Eos # (Auto) Baso # (Auto) WBC Differential Differential Comment PT INR Sodium Potassium 3.5 Chloride Carbon Dioxide Anion Gap BUN Creatinine Estimated GFR POC Glucose 147 H 103 Random Glucose Calcium Phosphorus Magnesium Total Bilirubin AST ALT Alkaline Phosphatase Total Protein Albumin 04/20/18 04/20/18 04/20/18 05:35 05:35 05:35 WBC 4.6 RBC 4.45 L Hgb 9.7 L D Hct 30.1 L MCV 67.6 L MCH 21.8 L MCHC 32.3 RDW 15.6 Plt Count 110 L D MPV 9.1 Neut % (Auto) 73.3 H Lymph % (Auto) 16.0 [place] % (Auto) 10.1 H Eos % (Auto) 0.1 Baso % (Auto) 0.5 Neut # (Auto) 3.4 Lymph # (Auto) 0.7 L [place] # (Auto) 0.5 Eos # (Auto) 0.0 Baso # (Auto) 0.0 WBC Differential . Differential Comment Auto diff final PT 11.4 INR 1.1 Sodium 140 Potassium 3.4 L Chloride 105 Carbon Dioxide 27.8 Anion Gap 7 BUN 15 Creatinine 1.19 Estimated GFR 61 L POC Glucose Random Glucose 83 D Calcium 7.5 L Phosphorus 1.7 L Magnesium 1.6 Total Bilirubin 3.1 H AST 62 H ALT 145 H Alkaline Phosphatase 147 H Total Protein 6.2 L D Albumin 2.3 L D 04/20/18 04/20/18 06:30 14:11 WBC RBC Hgb Hct MCV MCH MCHC RDW Plt Count MPV Neut % (Auto) Lymph % (Auto) [place] % (Auto) Eos % (Auto) Baso % (Auto) Neut # (Auto) Lymph # (Auto) [place] # (Auto) Eos # (Auto) Baso # (Auto) WBC Differential Differential Comment PT INR Sodium Potassium Chloride Carbon Dioxide Anion Gap BUN Creatinine Estimated GFR POC Glucose 81 143 H Random Glucose Calcium Phosphorus Magnesium Total Bilirubin AST ALT Alkaline Phosphatase Total Protein Albumin - Imaging Impressions Percutaneous Cholangiogram 04/19/18 00:00 CONCLUSION: 1. Uncomplicated percutaneous cholecystostomy as above. The patient has a patent cystic duct, however, there is occlusion of the common bile duct at the level of the ampulla. This is likely relating to a stone. Cholecystostomy tube placement was felt prudent to decompress the biliary system as detailed above. Turbid bile was noted and a sample sent to the lab for culture. Assessment and Plan - Plan Acute cholecytytis, possibly caculous sp cholecystostomy placment with plan for delayed cholecystectomy Gram negative sepsis - from acute cholecystitis PCN allergy, unknown type cont Primaxin fu clx report consider ERCP case was dw Kristen Ruiz, [place], [place]
--- NOTE | 2018-04-20 17:01 | P.PNGI ---
Subjective Interval history: Patient laying in bed No complaints of abdominal pain Still with right biliary drain 70 cc output from today Patient ambulated in the hallway per RN bedside <Petar Krishnamurthy - Last Filed: 04/20/18 16:52> Physical Exam Vital signs: Vital Signs 04/19/18 17:00 04/19/18 17:30 04/19/18 18:00 Temperature 99.6 F Pulse Rate 140 H 143 H 139 H Respiratory Rate 47 H 31 H 30 H Blood Pressure 113/81 125/76 115/67 Pulse Oximetry 89 L 98 96 04/19/18 19:00 04/19/18 20:00 04/19/18 20:23 Temperature 100.6 F H Pulse Rate 141 H 138 H Respiratory Rate 22 Blood Pressure 101/62 111/60 Pulse Oximetry 100 99 04/19/18 21:00 04/19/18 22:00 04/19/18 23:00 Temperature Pulse Rate 162 H 131 H 115 H Respiratory Rate 24 24 Blood Pressure 119/64 109/67 105/54 L Pulse Oximetry 98 97 99 04/20/18 00:00 04/20/18 01:00 04/20/18 02:00 Temperature 100.5 F H Pulse Rate 129 H 116 H 118 H Respiratory Rate 19 Blood Pressure 122/67 105/60 105/56 L Pulse Oximetry 96 98 98 04/20/18 02:30 04/20/18 03:00 04/20/18 03:30 Temperature Pulse Rate 116 H 121 H 102 H Respiratory Rate 28 H 39 H 27 H Blood Pressure 113/65 118/56 L 110/57 L Pulse Oximetry 98 99 98 04/20/18 04:00 04/20/18 04:30 04/20/18 05:00 Temperature 99.9 F H Pulse Rate 103 H 110 H 104 H Respiratory Rate 24 25 H 29 H Blood Pressure 94/50 L 122/53 L 111/56 L Pulse Oximetry 98 99 100 04/20/18 05:30 04/20/18 06:00 04/20/18 06:30 Temperature Pulse Rate 106 H 103 H 111 H Respiratory Rate 27 H 26 H 26 H Blood Pressure 97/54 L 119/64 111/68 Pulse Oximetry 100 99 100 04/20/18 07:00 04/20/18 07:30 04/20/18 07:57 Temperature Pulse Rate 111 H 116 H 119 H Respiratory Rate 24 24 34 H Blood Pressure 116/62 113/53 L 104/53 L Pulse Oximetry 100 99 100 04/20/18 08:00 04/20/18 08:30 04/20/18 09:00 Temperature Pulse Rate 109 H 103 H 114 H Respiratory Rate 26 H 24 28 H Blood Pressure 97/52 L 94/48 L 98/61 L Pulse Oximetry 95 99 98 04/20/18 09:27 04/20/18 09:30 04/20/18 10:00 Temperature Pulse Rate 129 H 124 H 118 H Respiratory Rate 29 H 25 H 24 Blood Pressure 104/64 101/55 L 105/64 Pulse Oximetry 98 94 L 95 04/20/18 10:30 04/20/18 11:00 04/20/18 11:30 Temperature Pulse Rate 114 H 113 H 108 H Respiratory Rate 25 H 24 21 Blood Pressure 119/56 L 104/61 Pulse Oximetry 96 97 97 04/20/18 12:00 04/20/18 12:30 04/20/18 13:47 Temperature Pulse Rate 107 H 109 H 121 H Respiratory Rate 17 20 Blood Pressure 113/76 91/65 L Pulse Oximetry 97 97 04/20/18 14:00 04/20/18 14:18 04/20/18 15:00 Temperature Pulse Rate 109 H 120 H 114 H Respiratory Rate 22 22 22 Blood Pressure 112/67 Pulse Oximetry 97 98 97 04/20/18 16:00 Temperature 98.8 F Pulse Rate 103 H Respiratory Rate 30 H Blood Pressure Pulse Oximetry 99 Intake & Output 04/19/18 04/20/18 04/20/18 18:59 06:59 18:59 Intake Total 3660 / 3660 2645 / 2645 125 / 125 Output Total 80 / 80 1040 / 1040 Balance 3580 / 3580 1605 / 1605 125 / 125 Weight 115 kg Intake: IV 2700 / 2700 1425 / 1425 125 / 125 LR 1000 mL Inj 1,000 ML @ 120 1000 / 1000 1000 / 1000 mls/hr IV.CONT .Q8H20M [facility] Rx#: [id number] Cardizem Inj 125 MG In NS Inj 125 / 125 125 / 125 100 ML @ 5 MG/HR 5 mls/hr IV. CONT TITRATE PRN Rx#:[id number] Azactam Inj 2 GM In NS Inj 100 200 / 200 100 / 100 ML @ 200 mls/hr IV.SIG Q8H [facility] Rx#:[id number] LR 1000 mL Inj 1,000 ML @ Wide 1000 / 1000 Open IV.SIG BOLUS ONE Rx#: [id number] Levaquin 500 mg Premix Inj 500 100 / 100 mg In 100 ml @ 0 mls/hr IV.SIG .STK-MED ONE Rx#:[id number] Magnesium Sulfate Inj 2 GM In 100 / 100 NS Inj 96 ML @ 50 mls/hr IV.SIG ONCE ONE Rx#:[id number] KCl 20 mEq Premix Inj 20 meq In 200 / 200 100 ml @ 50 mls/hr IV.SIG Q2H PRN Rx#:[id number] Flagyl 500 MG Inj 100 ML @ 100 200 / 200 100 / 100 mls/hr IV.SIG Q8H [facility] Rx#: [id number] Oral 960 / 960 1220 / 1220 Output: Urine 900 / 900 Wound Drainage 80 / 80 140 / 140 # 1 Right Upper Abdomen 80 / 80 140 / 140 Other: # Voids 3 Date of Last Bowel Movement 04/19/18 04/19/18 04/19/18 - Constitutional no acute distress - Routine HEENT Exam Head: Present: normocephalic, atraumatic - Routine Neck Exam Present: supple - Routine Respiratory Exam Present: CTA bilaterally - Routine Cardiovascular Exam Present: RRR, S1, S2 - Routine Abdominal Exam Present: soft, normoactive bowel sounds, tenderness, distended Comments: Patient has mild tenderness on palpation and mild distention IR biliary drain patent and draining bilious liquid - Routine Extremities Exam Present: pulses intact - Routine Skin Exam Present: intact - Routine Neurological Exam Present: alert, oriented X3 - Routine Psychiatric Exam Present: cooperative <Petar Krishnamurthy - Last Filed: 04/20/18 16:52> Vital signs: Vital Signs 04/19/18 17:30 04/19/18 18:00 04/19/18 19:00 Temperature 99.6 F Pulse Rate 143 H 139 H 141 H Respiratory Rate 31 H 30 H Blood Pressure 125/76 115/67 101/62 Pulse Oximetry 98 96 04/19/18 20:00 04/19/18 20:23 04/19/18 21:00 Temperature 100.6 F H Pulse Rate 138 H 162 H Respiratory Rate 22 24 Blood Pressure 111/60 119/64 Pulse Oximetry 100 99 98 04/19/18 22:00 04/19/18 23:00 04/20/18 00:00 Temperature 100.5 F H Pulse Rate 131 H 115 H 129 H Respiratory Rate 24 19 Blood Pressure 109/67 105/54 L 122/67 Pulse Oximetry 97 99 96 04/20/18 01:00 04/20/18 02:00 04/20/18 02:30 Temperature Pulse Rate 116 H 118 H 116 H Respiratory Rate 28 H Blood Pressure 105/60 105/56 L 113/65 Pulse Oximetry 98 98 98 04/20/18 03:00 04/20/18 03:30 04/20/18 04:00 Temperature 99.9 F H Pulse Rate 121 H 102 H 103 H Respiratory Rate 39 H 27 H 24 Blood Pressure 118/56 L 110/57 L 94/50 L Pulse Oximetry 99 98 98 04/20/18 04:30 04/20/18 05:00 04/20/18 05:30 Temperature Pulse Rate 110 H 104 H 106 H Respiratory Rate 25 H 29 H 27 H Blood Pressure 122/53 L 111/56 L 97/54 L Pulse Oximetry 99 100 100 04/20/18 06:00 04/20/18 06:30 04/20/18 07:00 Temperature Pulse Rate 103 H 111 H 111 H Respiratory Rate 26 H 26 H 24 Blood Pressure 119/64 111/68 116/62 Pulse Oximetry 99 100 100 04/20/18 07:30 04/20/18 07:57 04/20/18 08:00 Temperature Pulse Rate 116 H 119 H 109 H Respiratory Rate 24 34 H 26 H Blood Pressure 113/53 L 104/53 L 97/52 L Pulse Oximetry 99 100 95 04/20/18 08:30 04/20/18 09:00 04/20/18 09:27 Temperature Pulse Rate 103 H 114 H 129 H Respiratory Rate 24 28 H 29 H Blood Pressure 94/48 L 98/61 L 104/64 Pulse Oximetry 99 98 98 04/20/18 09:30 04/20/18 10:00 04/20/18 10:30 Temperature Pulse Rate 124 H 118 H 114 H Respiratory Rate 25 H 24 25 H Blood Pressure 101/55 L 105/64 119/56 L Pulse Oximetry 94 L 95 96 04/20/18 11:00 04/20/18 11:30 04/20/18 12:00 Temperature Pulse Rate 113 H 108 H 107 H Respiratory Rate 24 21 17 Blood Pressure 104/61 113/76 Pulse Oximetry 97 97 97 04/20/18 12:30 04/20/18 13:47 04/20/18 14:00 Temperature Pulse Rate 109 H 121 H 109 H Respiratory Rate 20 22 Blood Pressure 91/65 L Pulse Oximetry 97 97 04/20/18 14:18 04/20/18 15:00 04/20/18 16:00 Temperature 98.8 F Pulse Rate 120 H 114 H 103 H Respiratory Rate 22 22 30 H Blood Pressure 112/67 Pulse Oximetry 98 97 99 Intake & Output 04/19/18 04/20/18 04/20/18 18:59 06:59 18:59 Intake Total 3660 / 3660 2645 / 2645 125 / 125 Output Total 80 / 80 1040 / 1040 Balance 3580 / 3580 1605 / 1605 125 / 125 Weight 115 kg Intake: IV 2700 / 2700 1425 / 1425 125 / 125 LR 1000 mL Inj 1,000 ML @ 120 1000 / 1000 1000 / 1000 mls/hr IV.CONT .Q8H20M [facility] Rx#: [id number] Cardizem Inj 125 MG In NS Inj 125 / 125 125 / 125 100 ML @ 5 MG/HR 5 mls/hr IV. CONT TITRATE PRN Rx#:[id number] Azactam Inj 2 GM In NS Inj 100 200 / 200 100 / 100 ML @ 200 mls/hr IV.SIG Q8H [facility] Rx#:[id number] LR 1000 mL Inj 1,000 ML @ Wide 1000 / 1000 Open IV.SIG BOLUS ONE Rx#: [id number] Levaquin 500 mg Premix Inj 500 100 / 100 mg In 100 ml @ 0 mls/hr IV.SIG .STK-MED ONE Rx#:[id number] Magnesium Sulfate Inj 2 GM In 100 / 100 NS Inj 96 ML @ 50 mls/hr IV.SIG ONCE ONE Rx#:[id number] KCl 20 mEq Premix Inj 20 meq In 200 / 200 100 ml @ 50 mls/hr IV.SIG Q2H [facility] Rx#:[id number] Flagyl 500 MG Inj 100 ML @ 100 200 / 200 100 / 100 mls/hr IV.SIG Q8H [facility] Rx#: [id number] Oral 960 / 960 1220 / 1220 Output: Urine 900 / 900 Wound Drainage 80 / 80 140 / 140 # 1 Right Upper Abdomen 80 / 80 140 / 140 Other: # Voids 3 Date of Last Bowel Movement 04/19/18 04/19/18 04/19/18 <Cholo Turner - Last Filed: 04/20/18 17:34> Results - Labs CBC & Chem 7: 04/20/18 05:35 04/20/18 05:35 Laboratory Results - last 24 hr 04/19/18 04/19/18 04/20/18 18:00 20:40 00:25 WBC RBC Hgb Hct MCV MCH MCHC RDW Plt Count MPV Neut % (Auto) Lymph % (Auto) [place] % (Auto) Eos % (Auto) Baso % (Auto) Neut # (Auto) Lymph # (Auto) [place] # (Auto) Eos # (Auto) Baso # (Auto) WBC Differential Differential Comment PT INR Sodium Potassium 3.5 Chloride Carbon Dioxide Anion Gap BUN Creatinine Estimated GFR POC Glucose 147 H 103 Random Glucose Calcium Phosphorus Magnesium Total Bilirubin AST ALT Alkaline Phosphatase Total Protein Albumin 04/20/18 04/20/18 04/20/18 05:35 05:35 05:35 WBC 4.6 RBC 4.45 L Hgb 9.7 L D Hct 30.1 L MCV 67.6 L MCH 21.8 L MCHC 32.3 RDW 15.6 Plt Count 110 L D MPV 9.1 Neut % (Auto) 73.3 H Lymph % (Auto) 16.0 [place] % (Auto) 10.1 H Eos % (Auto) 0.1 Baso % (Auto) 0.5 Neut # (Auto) 3.4 Lymph # (Auto) 0.7 L [place] # (Auto) 0.5 Eos # (Auto) 0.0 Baso # (Auto) 0.0 WBC Differential . Differential Comment Auto diff final PT 11.4 INR 1.1 Sodium 140 Potassium 3.4 L Chloride 105 Carbon Dioxide 27.8 Anion Gap 7 BUN 15 Creatinine 1.19 Estimated GFR 61 L POC Glucose Random Glucose 83 D Calcium 7.5 L Phosphorus 1.7 L Magnesium 1.6 Total Bilirubin 3.1 H AST 62 H ALT 145 H Alkaline Phosphatase 147 H Total Protein 6.2 L D Albumin 2.3 L D 04/20/18 04/20/18 06:30 14:11 WBC RBC Hgb Hct MCV MCH MCHC RDW Plt Count MPV Neut % (Auto) Lymph % (Auto) [place] % (Auto) Eos % (Auto) Baso % (Auto) Neut # (Auto) Lymph # (Auto) [place] # (Auto) Eos # (Auto) Baso # (Auto) WBC Differential Differential Comment PT INR Sodium Potassium Chloride Carbon Dioxide Anion Gap BUN Creatinine Estimated GFR POC Glucose 81 143 H Random Glucose Calcium Phosphorus Magnesium Total Bilirubin AST ALT Alkaline Phosphatase Total Protein Albumin Microbiology 04/19/18 13:35 Fluid - Gallbladder Gram Stain - Final 04/19/18 13:35 Fluid - Gallbladder Body Fluid Culture - Preliminary gram negative rods Streptococcus species 04/18/18 23:00 Blood - Peripheral Aerobic Blood Culture - Preliminary Escherichia coli 04/18/18 23:00 Blood - Peripheral Anaerobic Blood Culture - Preliminary gram negative rods 04/18/18 23:22 Catheterized Urine Urine Culture - Preliminary No growth in 24 hours 04/18/18 22:45 Blood - Peripheral Aerobic Blood Culture - Preliminary gram negative rods 04/18/18 22:45 Blood - Peripheral Anaerobic Blood Culture - Preliminary gram negative rods <Petar Krishnamurthy - Last Filed: 04/20/18 16:52> - Labs CBC & Chem 7: 04/20/18 05:35 04/20/18 05:35 Laboratory Results - last 24 hr 04/19/18 04/19/18 04/20/18 18:00 20:40 00:25 WBC RBC Hgb Hct MCV MCH MCHC RDW Plt Count MPV Neut % (Auto) Lymph % (Auto) [place] % (Auto) Eos % (Auto) Baso % (Auto) Neut # (Auto) Lymph # (Auto) [place] # (Auto) Eos # (Auto) Baso # (Auto) WBC Differential Differential Comment PT INR Sodium Potassium 3.5 Chloride Carbon Dioxide Anion Gap BUN Creatinine Estimated GFR POC Glucose 147 H 103 Random Glucose Calcium Phosphorus Magnesium Total Bilirubin AST ALT Alkaline Phosphatase Total Protein Albumin 04/20/18 04/20/18 04/20/18 05:35 05:35 05:35 WBC 4.6 RBC 4.45 L Hgb 9.7 L D Hct 30.1 L MCV 67.6 L MCH 21.8 L MCHC 32.3 RDW 15.6 Plt Count 110 L D MPV 9.1 Neut % (Auto) 73.3 H Lymph % (Auto) 16.0 [place] % (Auto) 10.1 H Eos % (Auto) 0.1 Baso % (Auto) 0.5 Neut # (Auto) 3.4 Lymph # (Auto) 0.7 L [place] # (Auto) 0.5 Eos # (Auto) 0.0 Baso # (Auto) 0.0 WBC Differential . Differential Comment Auto diff final PT 11.4 INR 1.1 Sodium 140 Potassium 3.4 L Chloride 105 Carbon Dioxide 27.8 Anion Gap 7 BUN 15 Creatinine 1.19 Estimated GFR 61 L POC Glucose Random Glucose 83 D Calcium 7.5 L Phosphorus 1.7 L Magnesium 1.6 Total Bilirubin 3.1 H AST 62 H ALT 145 H Alkaline Phosphatase 147 H Total Protein 6.2 L D Albumin 2.3 L D 04/20/18 04/20/18 06:30 14:11 WBC RBC Hgb Hct MCV MCH MCHC RDW Plt Count MPV Neut % (Auto) Lymph % (Auto) [place] % (Auto) Eos % (Auto) Baso % (Auto) Neut # (Auto) Lymph # (Auto) [place] # (Auto) Eos # (Auto) Baso # (Auto) WBC Differential Differential Comment PT INR Sodium Potassium Chloride Carbon Dioxide Anion Gap BUN Creatinine Estimated GFR POC Glucose 81 143 H Random Glucose Calcium Phosphorus Magnesium Total Bilirubin AST ALT Alkaline Phosphatase Total Protein Albumin Microbiology 04/19/18 13:35 Fluid - Gallbladder Gram Stain - Final 04/19/18 13:35 Fluid - Gallbladder Body Fluid Culture - Preliminary gram negative rods Streptococcus species 04/18/18 23:00 Blood - Peripheral Aerobic Blood Culture - Preliminary Escherichia coli 04/18/18 23:00 Blood - Peripheral Anaerobic Blood Culture - Preliminary gram negative rods 04/18/18 23:22 Catheterized Urine Urine Culture - Preliminary No growth in 24 hours 04/18/18 22:45 Blood - Peripheral Aerobic Blood Culture - Preliminary gram negative rods 04/18/18 22:45 Blood - Peripheral Anaerobic Blood Culture - Preliminary gram negative rods <Cholo Turner - Last Filed: 04/20/18 17:34> Assessment and Plan (1) Severe sepsis Status: Acute Code(s): A41.9 - Sepsis, unspecified organism; R65.20 - Severe sepsis without septic shock (2) Cholecystitis with cholangitis Status: Acute Code(s): K81.9 - Cholecystitis, unspecified; K83.09 - Other cholangitis (3) UTI (urinary tract infection) Status: Acute Code(s): N39.0 - Urinary tract infection, site not specified (4) Acute cholecystitis due to biliary calculus Status: Acute Code(s): K80.00 - Calculus of gallbladder with acute cholecystitis without obstruction (5) Hyperbilirubinemia Status: Acute Code(s): E80.6 - Other disorders of bilirubin metabolism - Plan 04/19/2018 This is a pleasant 63-year-old male patient with pertinent medical history of diabetes mellitus chronic kidney insufficiency BPH and hypertension presented to the [place] emergency room for generalized weakness epigastric pain intermittent chest pain associated with nausea and vomiting and difficulty of urinating for the past 2 days. Chest pain is described as nonradiating and intensifies when leaning forward. For the past 24 hours the epigastric pain has not change characterizes 9/10 stabbing and radiating to the right lower and right upper quadrant. 24 hours prior to onset of abdominal pain patient was having tactile fever and chills. patient denies blood in the stool or any black tarry stool in the past or hematemesis. Patient is not taking any anticoagulants at home. Patient stated that his son noted that his eyes are becoming yellow. our service is consulted for possible acute cholecystitis. Assessment Acute cholecystitis Transaminitis Hyperbilirubinemia Hypokalemia Chronic microcytic anemia Diabetes mellitus type 2 Chronic kidney insufficiency Hemoglobin 2.3 hematocrit 38.7 platelet 175 INR 1.2 Potassium 3.3 BUN 22 creatinine 1.68 GFR 41 AST 131 ALT 338 alk phos [address] scan 04/19/2018 showed severe changes of cholecystitis there is no significant gallbladder lumen to allow for percutaneous cholecystostomy. hepatosplenomegaly MRCP - abnormal appearance of GB and hepatic parenchyma. multiple gb stones. acute versus gangrenous cholecystitis .No dilatation of the intra or extra hepatic ducts 04/20/2018 Assessment Acute cholecystitis cholangitis -patient symptomatology is definitely gone down abdominal pain has resolved patient has ambulated the hallway. Biliary drain patent Status post IR placement of biliary drain 04/19/2018 Percutaneous cholecystostomy tube drain cholangiogram shows occlusion CBD near ampulla Hemoglobin 9.7 hematocrit 30.1 platelet 110 WBC 4.6 INR 1.2 liver enzymes trending down AST 62 ALT 145 alkaline phosphatase 147 Plan -Clear liquid diet -Awaiting culture of the biliary drainage -PPI -IV hydration -Antibiotics -Monitor labs -Monitor active bleeding -Supportive care -Further recommendations to follow This patient was seen and examined by myself and Dr. Turner and this note is written on his behalf - Attending Attestation Dr. Turner <Petar rKishnamurthy - Last Filed: 04/20/18 16:52> (1) Severe sepsis Status: Acute Code(s): A41.9 - Sepsis, unspecified organism; R65.20 - Severe sepsis without septic shock (2) Cholecystitis with cholangitis Status: Acute Code(s): K81.9 - Cholecystitis, unspecified; K83.09 - Other cholangitis (3) UTI (urinary tract infection) Status: Acute Code(s): N39.0 - Urinary tract infection, site not specified (4) Acute cholecystitis due to biliary calculus Status: Acute Code(s): K80.00 - Calculus of gallbladder with acute cholecystitis without obstruction (5) Hyperbilirubinemia Status: Acute Code(s): E80.6 - Other disorders of bilirubin metabolism - Plan Seen and examined with [facility], feeling better LFts ending down. Cholecystostomy tube draining well. percutaneous cholangiogram suggests cbd obstruction. Tentaively ERCP planned for sunday. Discussed with Dr Yan and Joseph. <Cholo Turner - Last Filed: 04/20/18 17:34> <Petar Krishnamurthy - Last Filed: 04/20/18 16:52> (3) UTI (urinary tract infection) Qualifiers: Urinary tract infection type: acute cystitis Hematuria presence: without hematuria Qualified Code(s): N30.00 - Acute cystitis without hematuria <Cholo Turner - Last Filed: 04/20/18 17:34> (3) UTI (urinary tract infection) Qualifiers: Urinary tract infection type: acute cystitis Hematuria presence: without hematuria Qualified Code(s): N30.00 - Acute cystitis without hematuria
--- NOTE | 2018-04-20 17:21 | P.PNGS ---
Subjective Interval history: Significant improvement in abdominal pain. Tm 100.6 overnight. E coli grown from blood culture. S/p tequila tube yesterday with turbid bile removed and now continued dark green clear bile drainage. Physical Exam Vital signs: Vital Signs 04/19/18 17:30 04/19/18 18:00 04/19/18 19:00 Temperature 99.6 F Pulse Rate 143 H 139 H 141 H Respiratory Rate 31 H 30 H Blood Pressure 125/76 115/67 101/62 Pulse Oximetry 98 96 04/19/18 20:00 04/19/18 20:23 04/19/18 21:00 Temperature 100.6 F H Pulse Rate 138 H 162 H Respiratory Rate 22 24 Blood Pressure 111/60 119/64 Pulse Oximetry 100 99 98 04/19/18 22:00 04/19/18 23:00 04/20/18 00:00 Temperature 100.5 F H Pulse Rate 131 H 115 H 129 H Respiratory Rate 24 19 Blood Pressure 109/67 105/54 L 122/67 Pulse Oximetry 97 99 96 04/20/18 01:00 04/20/18 02:00 04/20/18 02:30 Temperature Pulse Rate 116 H 118 H 116 H Respiratory Rate 28 H Blood Pressure 105/60 105/56 L 113/65 Pulse Oximetry 98 98 98 04/20/18 03:00 04/20/18 03:30 04/20/18 04:00 Temperature 99.9 F H Pulse Rate 121 H 102 H 103 H Respiratory Rate 39 H 27 H 24 Blood Pressure 118/56 L 110/57 L 94/50 L Pulse Oximetry 99 98 98 04/20/18 04:30 04/20/18 05:00 04/20/18 05:30 Temperature Pulse Rate 110 H 104 H 106 H Respiratory Rate 25 H 29 H 27 H Blood Pressure 122/53 L 111/56 L 97/54 L Pulse Oximetry 99 100 100 04/20/18 06:00 04/20/18 06:30 04/20/18 07:00 Temperature Pulse Rate 103 H 111 H 111 H Respiratory Rate 26 H 26 H 24 Blood Pressure 119/64 111/68 116/62 Pulse Oximetry 99 100 100 04/20/18 07:30 04/20/18 07:57 04/20/18 08:00 Temperature Pulse Rate 116 H 119 H 109 H Respiratory Rate 24 34 H 26 H Blood Pressure 113/53 L 104/53 L 97/52 L Pulse Oximetry 99 100 95 04/20/18 08:30 04/20/18 09:00 04/20/18 09:27 Temperature Pulse Rate 103 H 114 H 129 H Respiratory Rate 24 28 H 29 H Blood Pressure 94/48 L 98/61 L 104/64 Pulse Oximetry 99 98 98 04/20/18 09:30 04/20/18 10:00 04/20/18 10:30 Temperature Pulse Rate 124 H 118 H 114 H Respiratory Rate 25 H 24 25 H Blood Pressure 101/55 L 105/64 119/56 L Pulse Oximetry 94 L 95 96 04/20/18 11:00 04/20/18 11:30 04/20/18 12:00 Temperature Pulse Rate 113 H 108 H 107 H Respiratory Rate 24 21 17 Blood Pressure 104/61 113/76 Pulse Oximetry 97 97 97 04/20/18 12:30 04/20/18 13:47 04/20/18 14:00 Temperature Pulse Rate 109 H 121 H 109 H Respiratory Rate 20 22 Blood Pressure 91/65 L Pulse Oximetry 97 97 04/20/18 14:18 04/20/18 15:00 04/20/18 16:00 Temperature 98.8 F Pulse Rate 120 H 114 H 103 H Respiratory Rate 22 22 30 H Blood Pressure 112/67 Pulse Oximetry 98 97 99 Intake & Output 04/19/18 04/20/18 04/20/18 18:59 06:59 18:59 Intake Total 3660 / 3660 2645 / 2645 125 / 125 Output Total 80 / 80 1040 / 1040 Balance 3580 / 3580 1605 / 1605 125 / 125 Weight 115 kg Intake: IV 2700 / 2700 1425 / 1425 125 / 125 LR 1000 mL Inj 1,000 ML @ 120 1000 / 1000 1000 / 1000 mls/hr IV.CONT .Q8H20M MELVIN Rx#: [id number] Cardizem Inj 125 MG In NS Inj 125 / 125 125 / 125 100 ML @ 5 MG/HR 5 mls/hr IV. CONT TITRATE PRN Rx#:[id number] Azactam Inj 2 GM In NS Inj 100 200 / 200 100 / 100 ML @ 200 mls/hr IV.SIG Q8H MELVIN Rx#:[id number] LR 1000 mL Inj 1,000 ML @ Wide 1000 / 1000 Open IV.SIG BOLUS ONE Rx#: [id number] Levaquin 500 mg Premix Inj 500 100 / 100 mg In 100 ml @ 0 mls/hr IV.SIG .STK-MED ONE Rx#:[id number] Magnesium Sulfate Inj 2 GM In 100 / 100 NS Inj 96 ML @ 50 mls/hr IV.SIG ONCE ONE Rx#:[id number] KCl 20 mEq Premix Inj 20 meq In 200 / 200 100 ml @ 50 mls/hr IV.SIG Q2H PRN Rx#:[id number] Flagyl 500 MG Inj 100 ML @ 100 200 / 200 100 / 100 mls/hr IV.SIG Q8H MELVIN Rx#: [id number] Oral 960 / 960 1220 / 1220 Output: Urine 900 / 900 Wound Drainage 80 / 80 140 / 140 # 1 Right Upper Abdomen 80 / 80 140 / 140 Other: # Voids 3 Date of Last Bowel Movement 04/19/18 04/19/18 04/19/18 Narrative: NAD +scleral icterus Abd: soft, minimal RUQ ttp, tequila tube with dark green clear bile Results - Labs 04/20/18 05:35 04/20/18 05:35 Laboratory Results - last 24 hr 04/19/18 04/19/18 04/20/18 18:00 20:40 00:25 WBC RBC Hgb Hct MCV MCH MCHC RDW Plt Count MPV Neut % (Auto) Lymph % (Auto) Foard % (Auto) Eos % (Auto) Baso % (Auto) Neut # (Auto) Lymph # (Auto) Foard # (Auto) Eos # (Auto) Baso # (Auto) WBC Differential Differential Comment PT INR Sodium Potassium 3.5 Chloride Carbon Dioxide Anion Gap BUN Creatinine Estimated GFR POC Glucose 147 H 103 Random Glucose Calcium Phosphorus Magnesium Total Bilirubin AST ALT Alkaline Phosphatase Total Protein Albumin 04/20/18 04/20/18 04/20/18 05:35 05:35 05:35 WBC 4.6 RBC 4.45 L Hgb 9.7 L D Hct 30.1 L MCV 67.6 L MCH 21.8 L MCHC 32.3 RDW 15.6 Plt Count 110 L D MPV 9.1 Neut % (Auto) 73.3 H Lymph % (Auto) 16.0 Foard % (Auto) 10.1 H Eos % (Auto) 0.1 Baso % (Auto) 0.5 Neut # (Auto) 3.4 Lymph # (Auto) 0.7 L Foard # (Auto) 0.5 Eos # (Auto) 0.0 Baso # (Auto) 0.0 WBC Differential . Differential Comment Auto diff final PT 11.4 INR 1.1 Sodium 140 Potassium 3.4 L Chloride 105 Carbon Dioxide 27.8 Anion Gap 7 BUN 15 Creatinine 1.19 Estimated GFR 61 L POC Glucose Random Glucose 83 D Calcium 7.5 L Phosphorus 1.7 L Magnesium 1.6 Total Bilirubin 3.1 H AST 62 H ALT 145 H Alkaline Phosphatase 147 H Total Protein 6.2 L D Albumin 2.3 L D 04/20/18 04/20/18 06:30 14:11 WBC RBC Hgb Hct MCV MCH MCHC RDW Plt Count MPV Neut % (Auto) Lymph % (Auto) Foard % (Auto) Eos % (Auto) Baso % (Auto) Neut # (Auto) Lymph # (Auto) Foard # (Auto) Eos # (Auto) Baso # (Auto) WBC Differential Differential Comment PT INR Sodium Potassium Chloride Carbon Dioxide Anion Gap BUN Creatinine Estimated GFR POC Glucose 81 143 H Random Glucose Calcium Phosphorus Magnesium Total Bilirubin AST ALT Alkaline Phosphatase Total Protein Albumin - Imaging Imaging: ITS Impressions Chest X-Ray 04/18/18 22:36 CONCLUSION: No acute disease Percutaneous Cholangiogram 04/19/18 00:00 CONCLUSION: 1. Uncomplicated percutaneous cholecystostomy as above. The patient has a patent cystic duct, however, there is occlusion of the common bile duct at the level of the ampulla. This is likely relating to a stone. Cholecystostomy tube placement was felt prudent to decompress the biliary system as detailed above. Turbid bile was noted and a sample sent to the lab for culture. Abdomen/Pelvis CT 04/19/18 00:18 CONCLUSION: 1. Severe changes of cholecystitis. There is no significant gallbladder lumen to allow for percutaneous cholecystostomy. 2. Hepatosplenomegaly. Cholangiopancreatography MRI 04/19/18 04:18 CONCLUSION: 1. Abnormal appearance to the gallbladder and hepatic parenchyma immediately surrounding the gallbladder fossa (rim sign) with multiple gallstones and significant gallbladder wall thickening. Differential considerations include acute cholecystitis and gangrenous cholecystitis. 2. No dilation of the intra or extrahepatic biliary system. Assessment and Plan - Assessment (1) Acute cholecystitis due to biliary calculus Code(s): K80.00 - Calculus of gallbladder with acute cholecystitis without obstruction Status: Acute (2) Hyperbilirubinemia Code(s): E80.6 - Other disorders of bilirubin metabolism Status: Acute (3) Severe sepsis Code(s): A41.9 - Sepsis, unspecified organism; R65.20 - Severe sepsis without septic shock Status: Acute - Plan Improving s/p tequila tube. Cholangiogram at that time showed no passage of contrast through the ampulla. Had low-grade fevers overnight and afebrile throughout the day today. Bilirubin normalizing. No plans for cholecystectomy until 6-8 weeks from now. I anticipate he will continue to improve with source control from the cholecystostomy tube. Case discussed with Dr. Yan and Dr. Turner. Due to the possible obstruction at the level of the ampulla, Dr. Turner is considering ERCP early next week. The patient does have at least some decompression of the entire biliary tree via the cholecystostomy tube due to the patent cystic duct. Another option is repeat cholangiogram via the tequila tube after infection clears.
--- NOTE | 2018-04-20 18:53 | ECHRPT ---
Indication: Atrial Fib and Flutter CONCLUSIONS Normal left ventricular size. Wall thickness is measured at the upper limits of normal. No definite regional wall motion abnormalities are present. The left ventricular systolic function i s normal with an estimated ejection fraction in the range of 55-60%. Trace mitral valve regurgitation. BP: 112 / 67 HR: 117 Rhythm: MEASUREMENTS (Male / Female) Normal Values Technical Quality:Fair 2D ECHO LV Diastolic Diameter PLAX 4.7 cm 4.2 - 5.9 / 3.9 - 5.3 cm LV Systolic Diameter PLAX 3.3 cm IVS Diastolic Thickness 1.3 cm 0.6 - 1.0 / 0.6 - 0.9 cm LVPW Diastolic Thickness 1.3 cm 0.6 - 1.0 / 0.6 - 0.9 cm LV Relative Wall Thickness 0.6 RV Internal Dim ED PLAX 3.7 cm LVOT Diameter 2.5 cm Aortic Root Diameter 3.6 cm LA Systolic Diameter LX 4.2 cm 3.0 - 4.0 / 2.7 - 3.8 cm M-MODE AV Cusp Separation MM 2.1 cm DOPPLER AV Peak Velocity 136.0 cm/s AV Peak Gradient 7.4 mmHg LVOT Peak Velocity 100.0 cm/s LVOT Peak Gradient 4.0 mmHg AV Area Cont Eq pk 3.6 cm Mitral E Point Velocity 115.0 cm/s LV E' Lateral Velocity 15.9 cm/s Mitral E to LV E' Lateral Ratio 7.2 LV E' Septal Velocity 10.2 cm/s Mitral E to LV E' Septal Ratio 11.3 TR Peak Velocity 175.0 cm/s TR Peak Gradient 12.3 mmHg Right Atrial Pressure 10.0 mmHg Pulmonary Artery Systolic Pressu 22.3 mmHg Right Ventricular Systolic Press 22.3 mmHg PV Peak Velocity 115.0 cm/s PV Peak Gradient 5.3 mmHg FINDINGS LEFT VENTRICLE Normal left ventricular size. Wall thickness is measured at the upper limits of normal. No definite regional wall motion abnormalities are present. The left ventricular systolic function i s normal with an estimated ejection fraction in the range of 55-60%. RIGHT VENTRICLE Normal right ventricular size and systolic function. LEFT ATRIUM The left atrial size is upper limits of normal. RIGHT ATRIUM The right atrial size is normal. ATRIAL SEPTUM Normal atrial septal thickness without atrial level shunting by limited color doppler interrogation. AORTA The aortic root and proximal ascending aorta are normal in size on limited imaging. MITRAL VALVE Trace mitral valve regurgitation. AORTIC VALVE Trileaflet aortic valve. No aortic valve stenosis or regurgitation. TRICUSPID VALVE Structurally normal tricuspid valve. No tricuspid valve stenosis or regurgitation. PULMONARY VALVE The pulmonary valve is not well visualized. VESSELS The inferior vena cava is normal in size. PERICARDIUM There is a small pericardial effusion present. Tom Damian MD (Electronically Signed) Final Date:20 April 2018 18:52
[2018-04-21] MEDS: Insulin NovoLIN Regular Correctional Sugar Inj SQ SCH ×4 (00:44→17:18)
[2018-04-21] MEDS: Metoprolol Tartrate 25 MG Tablet PO SCH ×3 (02:25→17:17)
[2018-04-21] MEDS: dilTIAZem Inj 125 MG in Sodium Chlor 0.9% Inj 100 ML IV.CONT PRN ×3 (05:26→22:36)
[2018-04-21 05:39] LABS: Baso # (Auto) 0.1 th/mm3 (0.0-0.2); Baso % (Auto) 1.4 % (0.0-2.0); Eos % (Auto) 1.2 % (0.0-4.0); Hematocrit 31.3 % (39.0-51.0); Hemoglobin 10.4 gm/dL (13.0-17.0); Lymph # (Auto) 0.8 th/mm3 (1.0-4.8); Lymph % (Auto) 18.5 % (9.0-44.0); Mean Corpuscular HGB Conc 33.3 % (32.0-36.0); Mean Corpuscular Hemoglobin 22.7 pg (27.0-34.0); Mean Corpuscular Volume 68.2 fL (80.0-100.0); Mean Platelet Volume 9.6 fL (7.0-11.0); Mono # (Auto) 0.5 th/mm3 (0.0-0.9); Mono % (Auto) 12.1 % (0.0-8.0); Neut # (Auto) 2.8 th/mm3 (1.8-7.7); Neut % (Auto) 66.8 % (16.0-70.0); Platelet Count 126 th/mm3 (150-450); Red Blood Count 4.58 mil/mm3 (4.50-5.90); Red Cell Distribution Width 15.8 % (11.6-17.2); White Blood Count 4.2 th/mm3 (4.0-11.0)
[2018-04-21 05:47] LABS: INR 1.1 Ratio; Prothrombin Time 10.7 sec (9.8-11.6)
[2018-04-21 06:02] LABS: Alanine Aminotransferase 108 U/L (12-78); Albumin 2.2 g/dL (3.4-5.0); Anion Gap 6 meq/L (5-15); Aspartate Aminotransferase 48 U/L (15-37); Blood Urea Nitrogen 13 mg/dL (7-18); Calcium 7.7 mg/dL (8.5-10.1); Carbon Dioxide 27.8 meq/L (21.0-32.0); Chloride 106 meq/L (98-107); Glomerular Filtration Rate 74 mL/min (>89); Glucose,Random 135 mg/dL (74-106); Magnesium 1.7 mg/dL (1.5-2.5); Potassium 3.5 meq/L (3.5-5.1); Sodium 140 meq/L (136-145)
[2018-04-21 06:08] LABS: Alkaline Phosphatase 128 U/L (45-117); Phosphorus 1.8 mg/dL (2.5-4.9); Total Protein 6.2 g/dL (6.4-8.2)
[2018-04-21] MEDS: Chlorhexidine Gluconate 2% 1 Pack (2 Cloths) TOPICAL SCH (06:11)
[2018-04-21] MEDS: HYDROmorphone PF Inj 0.5 MG/0.5 ML Syringe IV.PUSH PRN (08:24)
[2018-04-21] MEDS: Pantoprazole Inj 40 MG Vial IV.PUSH SCH (08:25)
--- NOTE | 2018-04-21 13:06 | P.PNGI ---
Subjective Interval history: Patient is able to sit up in the chair family members present for support, and son Ajay at bedside Currently no acute nausea or vomiting, mild abdominal soreness at Melissa tube site Labs reviewed which showed hemoglobin 10.4, no obvious bleed LFTs are trending down as well as alkaline phosphatase <Pam Coto - Last Filed: 04/21/18 13:06> Physical Exam Vital signs: Vital Signs 04/20/18 13:47 04/20/18 14:00 04/20/18 14:18 Temperature Pulse Rate 121 H 109 H 120 H Respiratory Rate 22 22 Blood Pressure 112/67 Pulse Oximetry 97 98 04/20/18 15:00 04/20/18 16:00 04/20/18 17:00 Temperature 98.8 F Pulse Rate 114 H 103 H 114 H Respiratory Rate 22 30 H 28 H Blood Pressure Pulse Oximetry 97 99 95 04/20/18 18:00 04/20/18 18:19 04/20/18 19:00 Temperature Pulse Rate 112 H 106 H 108 H Respiratory Rate 16 26 H 20 Blood Pressure 113/63 Pulse Oximetry 96 96 98 04/20/18 19:47 04/20/18 20:00 04/20/18 20:59 Temperature 99.5 F Pulse Rate 89 94 H Respiratory Rate 21 12 Blood Pressure 112/65 112/65 Pulse Oximetry 98 98 97 04/20/18 21:00 04/20/18 22:00 04/20/18 23:00 Temperature Pulse Rate 97 H 96 H 108 H Respiratory Rate 20 24 16 Blood Pressure 120/59 L 124/64 Pulse Oximetry 97 96 90 L 04/21/18 00:00 04/21/18 01:00 04/21/18 02:00 Temperature 100.1 F H Pulse Rate 103 H 99 H 105 H Respiratory Rate 20 16 19 Blood Pressure 119/56 L 119/56 L 122/62 Pulse Oximetry 93 L 89 L 86 L 04/21/18 03:00 04/21/18 04:00 04/21/18 05:00 Temperature 99.3 F Pulse Rate 104 H 82 94 H Respiratory Rate 21 15 17 Blood Pressure 136/73 119/70 124/58 L Pulse Oximetry 92 L 94 L 92 L 04/21/18 06:00 04/21/18 07:00 04/21/18 08:00 Temperature 98.9 F Pulse Rate 92 H 97 H 108 H Respiratory Rate 15 20 24 Blood Pressure 124/72 125/58 L 137/79 Pulse Oximetry 96 96 95 04/21/18 09:00 04/21/18 10:00 04/21/18 11:00 Temperature Pulse Rate 104 H 85 92 H Respiratory Rate 20 18 19 Blood Pressure 141/74 H 114/58 L 100/56 L Pulse Oximetry 98 100 04/21/18 12:00 Temperature 98.7 F Pulse Rate 96 H Respiratory Rate 13 Blood Pressure Pulse Oximetry 98 Intake & Output 04/20/18 04/21/18 04/21/18 18:59 06:59 18:59 Intake Total 750 / 750 425 / 425 200 / 200 Output Total 690 / 690 Balance 750 / 750 -265 / -265 200 / 200 Weight 112.4 kg Intake: IV 750 / 750 425 / 425 200 / 200 Cardizem Inj 125 MG In NS Inj 250 / 250 225 / 225 100 ML @ 5 MG/HR 5 mls/hr IV. CONT TITRATE PRN Rx#:[id number] Azactam Inj 2 GM In NS Inj 100 100 / 100 ML @ 200 mls/hr IV.SIG Q8H MELVIN Rx#:[id number] INVanz Inj 1,000 MG In NS Inj 100 / 100 100 ML @ 200 mls/hr IV.SIG ONCE ONE Rx#:[id number] Primaxin Inj 500 MG In NS Inj 100 / 100 200 / 200 200 / 200 100 ML @ 200 mls/hr IV.SIG Q6HR MELVIN Rx#:[id number] Magnesium Sulfate 1 gm/D5W 100 100 / 100 ml Premix 100 ML @ 100 mls/hr IV.SIG Q1H MELVIN Rx#:[id number] Flagyl 500 MG Inj 100 ML @ 100 100 / 100 mls/hr IV.SIG Q8H MELVIN Rx#: [id number] Output: Urine 650 / 650 Wound Drainage 40 / 40 # 1 Right Upper Abdomen 40 / 40 Other: # Voids 4 Date of Last Bowel Movement 04/19/18 04/20/18 04/20/18 - Constitutional mild distress, obese - Routine HEENT Exam Head: Present: normocephalic ENT: Present: mucous membranes moist - Routine Neck Exam Present: supple - Routine Respiratory Exam Present: accessory muscle use (Low volumes but no obvious shortness of breath at rest) - Routine Cardiovascular Exam Present: S1, S2 - Routine Abdominal Exam Present: soft (Round, taut, soft active bowel sounds, cholecystotomy tube draining medium to dark bilious fluid no obvious blood) <Pam Coto - Last Filed: 04/21/18 13:06> Vital signs: Vital Signs 04/20/18 13:47 04/20/18 14:00 04/20/18 14:18 Temperature Pulse Rate 121 H 109 H 120 H Respiratory Rate 22 22 Blood Pressure 112/67 Pulse Oximetry 97 98 04/20/18 15:00 04/20/18 16:00 04/20/18 17:00 Temperature 98.8 F Pulse Rate 114 H 103 H 114 H Respiratory Rate 22 30 H 28 H Blood Pressure Pulse Oximetry 97 99 95 04/20/18 18:00 04/20/18 18:19 04/20/18 19:00 Temperature Pulse Rate 112 H 106 H 108 H Respiratory Rate 16 26 H 20 Blood Pressure 113/63 Pulse Oximetry 96 96 98 04/20/18 19:47 04/20/18 20:00 04/20/18 20:59 Temperature 99.5 F Pulse Rate 89 94 H Respiratory Rate 21 12 Blood Pressure 112/65 112/65 Pulse Oximetry 98 98 97 04/20/18 21:00 04/20/18 22:00 04/20/18 23:00 Temperature Pulse Rate 97 H 96 H 108 H Respiratory Rate 20 24 16 Blood Pressure 120/59 L 124/64 Pulse Oximetry 97 96 90 L 04/21/18 00:00 04/21/18 01:00 04/21/18 02:00 Temperature 100.1 F H Pulse Rate 103 H 99 H 105 H Respiratory Rate 20 16 19 Blood Pressure 119/56 L 119/56 L 122/62 Pulse Oximetry 93 L 89 L 86 L 04/21/18 03:00 04/21/18 04:00 04/21/18 05:00 Temperature 99.3 F Pulse Rate 104 H 82 94 H Respiratory Rate 21 15 17 Blood Pressure 136/73 119/70 124/58 L Pulse Oximetry 92 L 94 L 92 L 04/21/18 06:00 04/21/18 07:00 04/21/18 08:00 Temperature 98.9 F Pulse Rate 92 H 97 H 108 H Respiratory Rate 15 20 24 Blood Pressure 124/72 125/58 L 137/79 Pulse Oximetry 96 96 95 04/21/18 09:00 04/21/18 10:00 04/21/18 11:00 Temperature Pulse Rate 104 H 85 92 H Respiratory Rate 20 18 19 Blood Pressure 141/74 H 114/58 L 100/56 L Pulse Oximetry 98 100 04/21/18 12:00 Temperature 98.7 F Pulse Rate 96 H Respiratory Rate 13 Blood Pressure Pulse Oximetry 98 Intake & Output 04/20/18 04/21/18 04/21/18 18:59 06:59 18:59 Intake Total 750 / 750 425 / 425 200 / 200 Output Total 690 / 690 Balance 750 / 750 -265 / -265 200 / 200 Weight 112.4 kg Intake: IV 750 / 750 425 / 425 200 / 200 Cardizem Inj 125 MG In NS Inj 250 / 250 225 / 225 100 ML @ 5 MG/HR 5 mls/hr IV. CONT TITRATE PRN Rx#:[id number] Azactam Inj 2 GM In NS Inj 100 100 / 100 ML @ 200 mls/hr IV.SIG Q8H MELVIN Rx#:[id number] INVanz Inj 1,000 MG In NS Inj 100 / 100 100 ML @ 200 mls/hr IV.SIG ONCE ONE Rx#:[id number] Primaxin Inj 500 MG In NS Inj 100 / 100 200 / 200 200 / 200 100 ML @ 200 mls/hr IV.SIG Q6HR MELVIN Rx#:[id number] Magnesium Sulfate 1 gm/D5W 100 100 / 100 ml Premix 100 ML @ 100 mls/hr IV.SIG Q1H MELVIN Rx#:[id number] Flagyl 500 MG Inj 100 ML @ 100 100 / 100 mls/hr IV.SIG Q8H MELVIN Rx#: [id number] Output: Urine 650 / 650 Wound Drainage 40 / 40 # 1 Right Upper Abdomen 40 / 40 Other: # Voids 4 Date of Last Bowel Movement 04/19/18 04/20/18 04/20/18 <Cholo Turner - Last Filed: 04/21/18 13:17> Results - Labs CBC & Chem 7: 04/21/18 05:14 04/21/18 05:14 Laboratory Results - last 24 hr 04/20/18 04/21/18 04/21/18 14:11 00:29 05:14 WBC 4.2 RBC 4.58 Hgb 10.4 L Hct 31.3 L MCV 68.2 L MCH 22.7 L MCHC 33.3 RDW 15.8 Plt Count 126 L MPV 9.6 Neut % (Auto) 66.8 Lymph % (Auto) 18.5 [place] % (Auto) 12.1 H Eos % (Auto) 1.2 Baso % (Auto) 1.4 Neut # (Auto) 2.8 Lymph # (Auto) 0.8 L [place] # (Auto) 0.5 Eos # (Auto) 0.0 Baso # (Auto) 0.1 WBC Differential . Differential Comment Auto diff final PT INR Sodium Potassium Chloride Carbon Dioxide Anion Gap BUN Creatinine Estimated GFR POC Glucose 143 H 178 H Random Glucose Calcium Phosphorus Magnesium Total Bilirubin AST ALT Alkaline Phosphatase Total Protein Albumin 04/21/18 04/21/18 04/21/18 05:14 05:14 11:41 WBC RBC Hgb Hct MCV MCH MCHC RDW Plt Count MPV Neut % (Auto) Lymph % (Auto) [place] % (Auto) Eos % (Auto) Baso % (Auto) Neut # (Auto) Lymph # (Auto) [place] # (Auto) Eos # (Auto) Baso # (Auto) WBC Differential Differential Comment PT 10.7 INR 1.1 Sodium 140 Potassium 3.5 Chloride 106 Carbon Dioxide 27.8 Anion Gap 6 BUN 13 Creatinine 1.01 Estimated GFR 74 L POC Glucose 166 H Random Glucose 135 H Calcium 7.7 L Phosphorus 1.8 L Magnesium 1.7 Total Bilirubin 3.0 H AST 48 H ALT 108 H Alkaline Phosphatase 128 H Total Protein 6.2 L Albumin 2.2 L Microbiology 04/19/18 13:35 Fluid - Gallbladder Gram Stain - Final 04/19/18 13:35 Fluid - Gallbladder Body Fluid Culture - Preliminary Escherichia coli Group D Enterococcus 04/18/18 22:45 Blood - Peripheral Aerobic Blood Culture - Preliminary Escherichia coli 04/18/18 22:45 Blood - Peripheral Anaerobic Blood Culture - Preliminary Escherichia coli 04/18/18 23:00 Blood - Peripheral Aerobic Blood Culture - Preliminary Escherichia coli 04/18/18 23:00 Blood - Peripheral Anaerobic Blood Culture - Preliminary Escherichia coli 04/18/18 23:22 Catheterized Urine Urine Culture - Final No growth in 48 hours <Pam Coto - Last Filed: 04/21/18 13:06> - Labs CBC & Chem 7: 0217/19 05:14 04/21/18 05:14 Laboratory Results - last 24 hr 04/20/18 04/21/18 04/21/18 14:11 00:29 05:14 WBC 4.2 RBC 4.58 Hgb 10.4 L Hct 31.3 L MCV 68.2 L MCH 22.7 L MCHC 33.3 RDW 15.8 Plt Count 126 L MPV 9.6 Neut % (Auto) 66.8 Lymph % (Auto) 18.5 [place] % (Auto) 12.1 H Eos % (Auto) 1.2 Baso % (Auto) 1.4 Neut # (Auto) 2.8 Lymph # (Auto) 0.8 L [place] # (Auto) 0.5 Eos # (Auto) 0.0 Baso # (Auto) 0.1 WBC Differential . Differential Comment Auto diff final PT INR Sodium Potassium Chloride Carbon Dioxide Anion Gap BUN Creatinine Estimated GFR POC Glucose 143 H 178 H Random Glucose Calcium Phosphorus Magnesium Total Bilirubin AST ALT Alkaline Phosphatase Total Protein Albumin 04/21/18 04/21/18 04/21/18 05:14 05:14 11:41 WBC RBC Hgb Hct MCV MCH MCHC RDW Plt Count MPV Neut % (Auto) Lymph % (Auto) [place] % (Auto) Eos % (Auto) Baso % (Auto) Neut # (Auto) Lymph # (Auto) [place] # (Auto) Eos # (Auto) Baso # (Auto) WBC Differential Differential Comment PT 10.7 INR 1.1 Sodium 140 Potassium 3.5 Chloride 106 Carbon Dioxide 27.8 Anion Gap 6 BUN 13 Creatinine 1.01 Estimated GFR 74 L POC Glucose 166 H Random Glucose 135 H Calcium 7.7 L Phosphorus 1.8 L Magnesium 1.7 Total Bilirubin 3.0 H AST 48 H ALT 108 H Alkaline Phosphatase 128 H Total Protein 6.2 L Albumin 2.2 L Microbiology 04/19/18 13:35 Fluid - Gallbladder Gram Stain - Final 04/19/18 13:35 Fluid - Gallbladder Body Fluid Culture - Preliminary Escherichia coli Group D Enterococcus 04/18/18 22:45 Blood - Peripheral Aerobic Blood Culture - Preliminary Escherichia coli 04/18/18 22:45 Blood - Peripheral Anaerobic Blood Culture - Preliminary Escherichia coli 04/18/18 23:00 Blood - Peripheral Aerobic Blood Culture - Preliminary Escherichia coli 02/14/19 23:00 Blood - Peripheral Anaerobic Blood Culture - Preliminary Escherichia coli 04/18/18 23:22 Catheterized Urine Urine Culture - Final No growth in 48 hours <Cholo Turner - Last Filed: 04/21/18 13:17> Assessment and Plan (1) Severe sepsis Status: Acute Code(s): A41.9 - Sepsis, unspecified organism; R65.20 - Severe sepsis without septic shock (2) Cholecystitis with cholangitis Status: Acute Code(s): K81.9 - Cholecystitis, unspecified; K83.09 - Other cholangitis (3) UTI (urinary tract infection) Status: Acute Code(s): N39.0 - Urinary tract infection, site not specified (4) Acute cholecystitis due to biliary calculus Status: Acute Code(s): K80.00 - Calculus of gallbladder with acute cholecystitis without obstruction (5) Hyperbilirubinemia Status: Acute Code(s): E80.6 - Other disorders of bilirubin metabolism - Plan Acute cholecystitis Transaminitis Hyperbilirubinemia Hypokalemia Chronic microcytic anemia Diabetes mellitus type 2 Chronic kidney insufficiency Hemoglobin 2.3 hematocrit 38.7 platelet 175 INR 1.2 Potassium 3.3 BUN 22 creatinine 1.68 GFR 41 AST 131 ALT 338 alk phos [address] scan 04/19/2018 showed severe changes of cholecystitis there is no significant gallbladder lumen to allow for percutaneous cholecystostomy. hepatosplenomegaly MRCP - abnormal appearance of GB and hepatic parenchyma. multiple gb stones. acute versus gangrenous cholecystitis .No dilatation of the intra or extra hepatic ducts 04/20/2018 Assessment Acute cholecystitis cholangitis -patient symptomatology is definitely gone down abdominal pain has resolved patient has ambulated the hallway. Biliary drain patent Status post IR placement of biliary drain 04/19/2018 Percutaneous cholecystostomy tube drain cholangiogram shows occlusion CBD near ampulla Hemoglobin 9.7 hematocrit 30.1 platelet 110 WBC 4.6 INR 1.2 liver enzymes trending down AST 62 ALT 145 alkaline phosphatase 147 04/21/2018 patient continues in the intensive care setting, cholecystotomy tube draining medium green colored bilious fluid, no obvious bleeding Son Ajay is the chief language communicator for this patient. Contact #[phone]. Family and patient are requesting Ajay be called after any procedures pending tomorrow probable ERCP planned. Labs reviewed which show hemoglobin 10.4, no obvious bleed and decreasing LFTs, AST 48 ALT 108, bilirubin 3, alkaline phosphatase decreased to 128. Appreciate general surgery input. Patient is tolerating clear liquids without nausea or vomiting. Supportive care to patient and further recommendations to follow after ERCP this was all explained to the family and patient. Plan Diet clear liquids as tolerated Intake and output close monitoring of cholecystotomy tube, monitor for any obvious blood IV hydration, antiemetics, antibiotics per attending, Consent for ERCP in a.m. N.p.o. at midnight Monitor labs Supportive care Further recommendations to follow Patient was seen per myself and Dr. Turner, note was written on his behalf <Pam Coto - Last Filed: 04/21/18 13:06> (1) Severe sepsis Status: Acute Code(s): A41.9 - Sepsis, unspecified organism; R65.20 - Severe sepsis without septic shock (2) Cholecystitis with cholangitis Status: Acute Code(s): K81.9 - Cholecystitis, unspecified; K83.09 - Other cholangitis (3) UTI (urinary tract infection) Status: Acute Code(s): N39.0 - Urinary tract infection, site not specified (4) Acute cholecystitis due to biliary calculus Status: Acute Code(s): K80.00 - Calculus of gallbladder with acute cholecystitis without obstruction (5) Hyperbilirubinemia Status: Acute Code(s): E80.6 - Other disorders of bilirubin metabolism - Plan Seen and examined with John DUBOSE at 3. Feeling better overall. ERCP planned for tomorrow. Discussed with son. <Cholo Turner - Last Filed: 04/21/18 13:17> <Pam Coto - Last Filed: 04/21/18 13:06> (3) UTI (urinary tract infection) Qualifiers: Urinary tract infection type: acute cystitis Hematuria presence: without hematuria Qualified Code(s): N30.00 - Acute cystitis without hematuria <Cholo Turner - Last Filed: 04/21/18 13:17> (3) UTI (urinary tract infection) Qualifiers: Urinary tract infection type: acute cystitis Hematuria presence: without hematuria Qualified Code(s): N30.00 - Acute cystitis without hematuria
--- NOTE | 2018-04-21 13:22 | P.PNGS ---
Subjective Interval history: He denies abdominal pain. Family is at bedside. Tolerating clears. ERCP planned for tomorrow am. Bilirubin slightly improved but still elevated at 3. Tequila tube with dark green clear bile drainage. Physical Exam Vital signs: Vital Signs 04/20/18 13:47 04/20/18 14:00 04/20/18 14:18 Temperature Pulse Rate 121 H 109 H 120 H Respiratory Rate 22 22 Blood Pressure 112/67 Pulse Oximetry 97 98 04/20/18 15:00 04/20/18 16:00 04/20/18 17:00 Temperature 98.8 F Pulse Rate 114 H 103 H 114 H Respiratory Rate 22 30 H 28 H Blood Pressure Pulse Oximetry 97 99 95 04/20/18 18:00 04/20/18 18:19 04/20/18 19:00 Temperature Pulse Rate 112 H 106 H 108 H Respiratory Rate 16 26 H 20 Blood Pressure 113/63 Pulse Oximetry 96 96 98 04/20/18 19:47 04/20/18 20:00 04/20/18 20:59 Temperature 99.5 F Pulse Rate 89 94 H Respiratory Rate 21 12 Blood Pressure 112/65 112/65 Pulse Oximetry 98 98 97 04/20/18 21:00 04/20/18 22:00 04/20/18 23:00 Temperature Pulse Rate 97 H 96 H 108 H Respiratory Rate 20 24 16 Blood Pressure 120/59 L 124/64 Pulse Oximetry 97 96 90 L 04/21/18 00:00 04/21/18 01:00 04/21/18 02:00 Temperature 100.1 F H Pulse Rate 103 H 99 H 105 H Respiratory Rate 20 16 19 Blood Pressure 119/56 L 119/56 L 122/62 Pulse Oximetry 93 L 89 L 86 L 04/21/18 03:00 04/21/18 04:00 04/21/18 05:00 Temperature 99.3 F Pulse Rate 104 H 82 94 H Respiratory Rate 21 15 17 Blood Pressure 136/73 119/70 124/58 L Pulse Oximetry 92 L 94 L 92 L 04/21/18 06:00 04/21/18 07:00 04/21/18 08:00 Temperature 98.9 F Pulse Rate 92 H 97 H 108 H Respiratory Rate 15 20 24 Blood Pressure 124/72 125/58 L 137/79 Pulse Oximetry 96 96 95 04/21/18 09:00 04/21/18 10:00 04/21/18 11:00 Temperature Pulse Rate 104 H 85 92 H Respiratory Rate 20 18 19 Blood Pressure 141/74 H 114/58 L 100/56 L Pulse Oximetry 98 100 04/21/18 12:00 Temperature 98.7 F Pulse Rate 96 H Respiratory Rate 13 Blood Pressure Pulse Oximetry 98 Intake & Output 04/20/18 04/21/18 04/21/18 18:59 06:59 18:59 Intake Total 750 / 750 425 / 425 200 / 200 Output Total 690 / 690 Balance 750 / 750 -265 / -265 200 / 200 Weight 112.4 kg Intake: IV 750 / 750 425 / 425 200 / 200 Cardizem Inj 125 MG In NS Inj 250 / 250 225 / 225 100 ML @ 5 MG/HR 5 mls/hr IV. CONT TITRATE PRN Rx#:[id number] Azactam Inj 2 GM In NS Inj 100 100 / 100 ML @ 200 mls/hr IV.SIG Q8H MELVIN Rx#:[id number] INVanz Inj 1,000 MG In NS Inj 100 / 100 100 ML @ 200 mls/hr IV.SIG ONCE ONE Rx#:[id number] Primaxin Inj 500 MG In NS Inj 100 / 100 200 / 200 200 / 200 100 ML @ 200 mls/hr IV.SIG Q6HR MELVIN Rx#:[id number] Magnesium Sulfate 1 gm/D5W 100 100 / 100 ml Premix 100 ML @ 100 mls/hr IV.SIG Q1H MELVIN Rx#:[id number] Flagyl 500 MG Inj 100 ML @ 100 100 / 100 mls/hr IV.SIG Q8H MELVIN Rx#: [id number] Output: Urine 650 / 650 Wound Drainage 40 / 40 # 1 Right Upper Abdomen 40 / 40 Other: # Voids 4 Date of Last Bowel Movement 04/19/18 04/20/18 04/20/18 Narrative: Gen: no distress, comfortable in bed Abd: soft, ntd, tequila tube dark green clear bile Results - Labs 04/21/18 05:14 04/21/18 05:14 Laboratory Results - last 24 hr 04/20/18 04/21/18 04/21/18 14:11 00:29 05:14 WBC 4.2 RBC 4.58 Hgb 10.4 L Hct 31.3 L MCV 68.2 L MCH 22.7 L MCHC 33.3 RDW 15.8 Plt Count 126 L MPV 9.6 Neut % (Auto) 66.8 Lymph % (Auto) 18.5 [place] % (Auto) 12.1 H Eos % (Auto) 1.2 Baso % (Auto) 1.4 Neut # (Auto) 2.8 Lymph # (Auto) 0.8 L [place] # (Auto) 0.5 Eos # (Auto) 0.0 Baso # (Auto) 0.1 WBC Differential . Differential Comment Auto diff final PT INR Sodium Potassium Chloride Carbon Dioxide Anion Gap BUN Creatinine Estimated GFR POC Glucose 143 H 178 H Random Glucose Calcium Phosphorus Magnesium Total Bilirubin AST ALT Alkaline Phosphatase Total Protein Albumin 04/21/18 04/21/18 04/21/18 05:14 05:14 11:41 WBC RBC Hgb Hct MCV MCH MCHC RDW Plt Count MPV Neut % (Auto) Lymph % (Auto) [place] % (Auto) Eos % (Auto) Baso % (Auto) Neut # (Auto) Lymph # (Auto) [place] # (Auto) Eos # (Auto) Baso # (Auto) WBC Differential Differential Comment PT 10.7 INR 1.1 Sodium 140 Potassium 3.5 Chloride 106 Carbon Dioxide 27.8 Anion Gap 6 BUN 13 Creatinine 1.01 Estimated GFR 74 L POC Glucose 166 H Random Glucose 135 H Calcium 7.7 L Phosphorus 1.8 L Magnesium 1.7 Total Bilirubin 3.0 H AST 48 H ALT 108 H Alkaline Phosphatase 128 H Total Protein 6.2 L Albumin 2.2 L - Imaging Imaging: ITS Impressions Chest X-Ray 04/18/18 22:36 CONCLUSION: No acute disease Percutaneous Cholangiogram 04/19/18 00:00 CONCLUSION: 1. Uncomplicated percutaneous cholecystostomy as above. The patient has a patent cystic duct, however, there is occlusion of the common bile duct at the level of the ampulla. This is likely relating to a stone. Cholecystostomy tube placement was felt prudent to decompress the biliary system as detailed above. Turbid bile was noted and a sample sent to the lab for culture. Abdomen/Pelvis CT 04/19/18 00:18 CONCLUSION: 1. Severe changes of cholecystitis. There is no significant gallbladder lumen to allow for percutaneous cholecystostomy. 2. Hepatosplenomegaly. Cholangiopancreatography MRI 04/19/18 04:18 CONCLUSION: 1. Abnormal appearance to the gallbladder and hepatic parenchyma immediately surrounding the gallbladder fossa (rim sign) with multiple gallstones and significant gallbladder wall thickening. Differential considerations include acute cholecystitis and gangrenous cholecystitis. 2. No dilation of the intra or extrahepatic biliary system. Assessment and Plan - Assessment (1) Acute cholecystitis due to biliary calculus Code(s): K80.00 - Calculus of gallbladder with acute cholecystitis without obstruction Status: Acute (2) Hyperbilirubinemia Code(s): E80.6 - Other disorders of bilirubin metabolism Status: Acute (3) Severe sepsis Code(s): A41.9 - Sepsis, unspecified organism; R65.20 - Severe sepsis without septic shock Status: Acute - Plan Improving s/p tequila tube. Cholangiogram at that time showed no passage of contrast through the ampulla. Plans for ERCP per GI tomorrow. Wiill require cholecystectomy in 6-8 weeks. Discussed in detail with the patient and his family and showed them a diagram of what is going on. I will follow peripherally. He needs to f/u with me in 1-2 weeks from discharge.
[2018-04-21] MEDS ORDERED: Potassium Chloride 25 MEQ Effervescent Tablet PO ONE (16:01)
[2018-04-21] MEDS ORDERED: Magnesium Sulfate Inj 2 GM in Sodium Chlor 0.9% Inj 96 ML IV.SIG ONE (16:02)
--- NOTE | 2018-04-21 16:18 | P.PNIM ---
Subjective Interval history: Patient currently in no acute distress. Complains of a headache. No other complaints. Physical Exam Vital signs: Vital Signs 04/20/18 17:00 04/20/18 18:00 04/20/18 18:19 Temperature Pulse Rate 114 H 112 H 106 H Respiratory Rate 28 H 16 26 H Blood Pressure 113/63 Pulse Oximetry 95 96 96 04/20/18 19:00 04/20/18 19:47 04/20/18 20:00 Temperature 99.5 F Pulse Rate 108 H 89 Respiratory Rate 20 21 Blood Pressure 112/65 Pulse Oximetry 98 98 98 04/20/18 20:59 04/20/18 21:00 04/20/18 22:00 Temperature Pulse Rate 94 H 97 H 96 H Respiratory Rate 12 20 24 Blood Pressure 112/65 120/59 L Pulse Oximetry 97 97 96 04/20/18 23:00 04/21/18 00:00 04/21/18 01:00 Temperature 100.1 F H Pulse Rate 108 H 103 H 99 H Respiratory Rate 16 20 16 Blood Pressure 124/64 119/56 L 119/56 L Pulse Oximetry 90 L 93 L 89 L 04/21/18 02:00 04/21/18 03:00 04/21/18 04:00 Temperature 99.3 F Pulse Rate 105 H 104 H 82 Respiratory Rate 19 21 15 Blood Pressure 122/62 136/73 119/70 Pulse Oximetry 86 L 92 L 94 L 04/21/18 05:00 04/21/18 06:00 04/21/18 07:00 Temperature Pulse Rate 94 H 92 H 97 H Respiratory Rate 17 15 20 Blood Pressure 124/58 L 124/72 125/58 L Pulse Oximetry 92 L 96 96 04/21/18 08:00 04/21/18 09:00 04/21/18 10:00 Temperature 98.9 F Pulse Rate 108 H 104 H 85 Respiratory Rate 24 20 18 Blood Pressure 137/79 141/74 H 114/58 L Pulse Oximetry 95 98 100 04/21/18 11:00 04/21/18 12:00 04/21/18 13:00 Temperature 98.7 F Pulse Rate 92 H 96 H 99 H Respiratory Rate 19 13 19 Blood Pressure 100/56 L Pulse Oximetry 98 95 04/21/18 13:25 04/21/18 14:00 Temperature Pulse Rate 99 H 109 H Respiratory Rate 22 20 Blood Pressure 119/68 Pulse Oximetry 98 99 Intake & Output 04/20/18 04/21/18 04/21/18 18:59 06:59 18:59 Intake Total 750 / 750 425 / 425 325 / 325 Output Total 690 / 690 Balance 750 / 750 -265 / -265 325 / 325 Weight 112.4 kg Intake: IV 750 / 750 425 / 425 325 / 325 Cardizem Inj 125 MG In NS Inj 250 / 250 225 / 225 125 / 125 100 ML @ 5 MG/HR 5 mls/hr IV. CONT TITRATE PRN Rx#:[id number] Azactam Inj 2 GM In NS Inj 100 100 / 100 ML @ 200 mls/hr IV.SIG Q8H [facility] Rx#:[id number] INVanz Inj 1,000 MG In NS Inj 100 / 100 100 ML @ 200 mls/hr IV.SIG ONCE ONE Rx#:[id number] Primaxin Inj 500 MG In NS Inj 100 / 100 200 / 200 200 / 200 100 ML @ 200 mls/hr IV.SIG Q6HR [facility] Rx#:[id number] Magnesium Sulfate 1 gm/D5W 100 100 / 100 ml Premix 100 ML @ 100 mls/hr IV.SIG Q1H [facility] Rx#:[id number] Flagyl 500 MG Inj 100 ML @ 100 100 / 100 mls/hr IV.SIG Q8H [facility] Rx#: [id number] Output: Urine 650 / 650 Wound Drainage 40 / 40 # 1 Right Upper Abdomen 40 / 40 Other: # Voids 4 Date of Last Bowel Movement 04/19/18 04/20/18 04/20/18 Narrative: alert and oriented x 3 S1S2 CTA b/l abd soft, right sided drain in place, normal bowel sounds. No edema of the exts no focal neuro deficits. Results Labs CBC & Chem 7: 04/21/18 05:14 04/21/18 05:14 Labs: Microbiology 04/19/18 13:35 Fluid - Gallbladder Gram Stain - Final 04/19/18 13:35 Fluid - Gallbladder Body Fluid Culture - Preliminary Escherichia coli Group D Enterococcus 04/18/18 22:45 Blood - Peripheral Aerobic Blood Culture - Preliminary Escherichia coli 04/18/18 22:45 Blood - Peripheral Anaerobic Blood Culture - Preliminary Escherichia coli 04/18/18 23:00 Blood - Peripheral Aerobic Blood Culture - Preliminary Escherichia coli 04/18/18 23:00 Blood - Peripheral Anaerobic Blood Culture - Preliminary Escherichia coli 04/18/18 23:22 Catheterized Urine Urine Culture - Final No growth in 48 hours Assessment and Plan (1) Severe sepsis: Code(s): A41.9 - Sepsis, unspecified organism; R65.20 - Severe sepsis without septic shock Status: Acute (2) Cholecystitis with cholangitis: Code(s): K81.9 - Cholecystitis, unspecified; K83.09 - Other cholangitis Status: Acute (3) UTI (urinary tract infection): Code(s): N39.0 - Urinary tract infection, site not specified Status: Acute (4) Acute cholecystitis due to biliary calculus: Code(s): K80.00 - Calculus of gallbladder with acute cholecystitis without obstruction Status: Acute (5) Hyperbilirubinemia: Code(s): E80.6 - Other disorders of bilirubin metabolism Status: Acute Plan Mr. Flowers is a 63-year-old male with a history of hypertension, diabetes mellitus, BPH who presented to [facility] ED due to 2-day duration of mid abdominal pain, emesis and lethargy. Patient's son noted that he was getting jaundiced as well. Subsequently patient was brought to the emergency department. He had a fever of 102.9 F on admission and lactic acid 3.2. CT abdomen pelvis shows gallbladder wall thickening with pericholecystic fluid. He was transferred to the main hospital due to severe sepsis and possible GI evaluation with ERCP. 1. Sepsis 2/2 E coli Bacteremia 2/2 Acute cholecystitis and Cholangitis Blood cxs 2/2 positive for E coli. Gall bladder fluid cx E coli. GI and general surgery are following the patient. MRCP showed acute cholecystitis versus gangrenous cholecystitis. S/p cholecystostomy tube placement by IR which was done on 04/19/2018. On IV antibiotics. 2 Febrile episodes over the past 24 hrs. Plan from GI is for ERCP tomorrow. We will follow up with their recs. ID following. 2. New onset A fib No hx of a fib Etiology is likely dud to the patient's current infectious condition. ChadsVasc 3 On cardizem drip, Metoprolol. HR currently in the low 100s. ERCP tomorrow, after the procedure a discussion regarding anticoagulation will be held with the patient. 2DEcho shows EF of 55%, no other significant abnormalities. 3. HTN 4. DM 5. BPH Continue flomax On BB, continue to monitor the patient's blood pressure. We will adjust meds as needed. Continue Sliding scale. Continue accu checks. 6. MARIAM 7. Electrolyte abnormalities Serum cr on admit 1.6, improved to 1.1 Electrolytes replaced. SCDs for DVT prophylaxis. Progress Note: Quality VTE Deep Vein Thrombosis/Pulmonary Embolism Present on Admission: No _ (1) UTI (urinary tract infection) Qualifiers: Encounter type: Hematuria presence: without hematuria Indwelling urinary catheter type: Urinary tract infection type: acute cystitis Qualified Code(s) : N30.00 - Acute cystitis without hematuria
[2018-04-21] MEDS: Acetaminophen 325 MG Tablet PO PRN (17:18)
[2018-04-22] MEDS: Insulin NovoLIN Regular Correctional Sugar Inj SQ SCH ×4 (00:20→17:58)
[2018-04-22] MEDS: Metoprolol Tartrate 25 MG Tablet PO SCH ×2 (01:52→11:27)
[2018-04-22] MEDS: Chlorhexidine Gluconate 2% 1 Pack (2 Cloths) TOPICAL SCH (04:12)
[2018-04-22 04:15] LABS: Baso # (Auto) 0.1 th/mm3 (0.0-0.2); Baso % (Auto) 1.3 % (0.0-2.0); Eos # (Auto) 0.1 th/mm3 (0.0-0.4); Eos % (Auto) 1.7 % (0.0-4.0); Hematocrit 30.5 % (39.0-51.0); Hemoglobin 9.8 gm/dL (13.0-17.0); Lymph % (Auto) 19.4 % (9.0-44.0); Mean Corpuscular HGB Conc 32.2 % (32.0-36.0); Mean Corpuscular Hemoglobin 21.6 pg (27.0-34.0); Mean Corpuscular Volume 66.9 fL (80.0-100.0); Mono # (Auto) 0.6 th/mm3 (0.0-0.9); Mono % (Auto) 12.2 % (0.0-8.0); Neut # (Auto) 3.3 th/mm3 (1.8-7.7); Neut % (Auto) 65.4 % (16.0-70.0); Platelet Count 158 th/mm3 (150-450); Red Blood Count 4.56 mil/mm3 (4.50-5.90); Red Cell Distribution Width 15.9 % (11.6-17.2); White Blood Count 5.1 th/mm3 (4.0-11.0)
[2018-04-22 04:24] LABS: Prothrombin Time 10.5 sec (9.8-11.6)
[2018-04-22 04:46] LABS: Anion Gap 7 meq/L (5-15); Aspartate Aminotransferase 44 U/L (15-37); Blood Urea Nitrogen 11 mg/dL (7-18); Calcium 8.1 mg/dL (8.5-10.1); Carbon Dioxide 27.3 meq/L (21.0-32.0); Chloride 107 meq/L (98-107); Glomerular Filtration Rate 85 mL/min (>89); Glucose,Random 127 mg/dL (74-106); Magnesium 1.8 mg/dL (1.5-2.5); Potassium 3.7 meq/L (3.5-5.1); Sodium 141 meq/L (136-145)
[2018-04-22 04:48] LABS: Alanine Aminotransferase 82 U/L (12-78)
[2018-04-22 04:49] LABS: Alkaline Phosphatase 112 U/L (45-117); Total Protein 5.9 g/dL (6.4-8.2)
[2018-04-22] MEDS: dilTIAZem Inj 125 MG in Sodium Chlor 0.9% Inj 100 ML IV.CONT PRN ×2 (08:15→16:30)
[2018-04-22] MEDS: Pantoprazole Inj 40 MG Vial IV.PUSH SCH (08:16)
[2018-04-22] MEDS ORDERED: Lidocaine PF 1% Inj 5 ML Syringe OTHER ONE (09:06)
[2018-04-22] MEDS ORDERED: Succinylcholine Inj 100 MG/5 ML Syringe IV.PUSH ONE (09:06)
[2018-04-22] MEDS ORDERED: Phenylephrine/NS 1000 MCG/10ML Syringe IV.PUSH ONE (09:06)
[2018-04-22] MEDS ORDERED: *Ondansetron Inj 4 MG/2 ML Vial PERIprocedural Use ONLY ONE (10:42)
--- NOTE | 2018-04-22 10:51 | FL ---
EXAM DATE: 04/22/2018 10:42 AM EST AGE/SEX: 63 years / Male INDICATIONS: Stones CLINICAL DATA: This is the patient's initial encounter. Patient reports that signs and symptoms have been present for 1 day and indicates a pain score of 0/10. MEDICAL/SURGICAL HISTORY: Cholelith asis. None. COMPARISON: No prior exams available for comparison. FLUORO TIME: 195.2 seconds IMAGE COUNT: 5 RADIATION DOSE: 3.78 mGym2 DAP FINDINGS: An ERCP was performed by the ordering physician. The images demonstrate placement of a Silastic sten t bridging the duodenum to the right hepatic duct. There is good density of contrast from the ducts. CONCLUSION: Successful placement of Silastic stent by ERCP Electronically signed by: Sam Layne MD Board Certified Radiologist 04/22/2018 10:50 AM EST
--- NOTE | 2018-04-22 10:54 | P.PNIM ---
Subjective Interval history: f/u; bacteremia in no acute distress. had ERCP earlier today. denies abdominal pain, nausea. no fever. Physical Exam Vital signs: Vital Signs 04/21/18 11:00 04/21/18 12:00 04/21/18 13:00 Temperature 98.7 F Pulse Rate 92 H 96 H 99 H Respiratory Rate 19 13 19 Blood Pressure 100/56 L Pulse Oximetry 98 95 04/21/18 13:25 04/21/18 14:00 04/21/18 15:00 Temperature Pulse Rate 99 H 109 H 108 H Respiratory Rate 22 20 18 Blood Pressure 119/68 Pulse Oximetry 98 99 96 04/21/18 16:00 04/21/18 17:00 04/21/18 18:00 Temperature 98.8 F Pulse Rate 102 H 105 H 116 H Respiratory Rate 23 20 20 Blood Pressure Pulse Oximetry 93 L 96 96 04/21/18 18:41 04/21/18 19:00 04/21/18 20:00 Temperature 98.4 F Pulse Rate 85 85 86 Respiratory Rate 19 23 20 Blood Pressure 116/70 Pulse Oximetry 95 99 99 04/21/18 20:48 04/21/18 21:00 04/21/18 22:00 Temperature Pulse Rate 88 95 H 92 H Respiratory Rate 23 17 23 Blood Pressure 120/61 Pulse Oximetry 99 97 95 04/21/18 23:00 04/21/18 23:41 04/22/18 00:00 Temperature 98.4 F Pulse Rate 98 H 93 H 98 H Respiratory Rate 24 23 23 Blood Pressure 103/55 L Pulse Oximetry 98 98 99 04/22/18 01:00 04/22/18 01:51 04/22/18 01:54 Temperature Pulse Rate 96 H 99 H 100 H Respiratory Rate 15 22 23 Blood Pressure 129/73 120/57 L Pulse Oximetry 99 100 99 04/22/18 02:00 04/22/18 02:02 04/22/18 03:00 Temperature Pulse Rate 96 H 95 H 93 H Respiratory Rate 18 17 14 Blood Pressure 125/66 Pulse Oximetry 98 99 99 04/22/18 03:02 04/22/18 04:00 04/22/18 04:02 Temperature 98.6 F Pulse Rate 93 H 90 90 Respiratory Rate 14 23 15 Blood Pressure 127/63 118/66 Pulse Oximetry 98 99 99 04/22/18 05:00 04/22/18 05:02 04/22/18 06:00 Temperature Pulse Rate 117 H 108 H 96 H Respiratory Rate 16 16 24 Blood Pressure 133/96 H Pulse Oximetry 97 95 98 04/22/18 06:02 04/22/18 07:02 04/22/18 07:56 Temperature Pulse Rate 90 111 H Respiratory Rate 24 21 Blood Pressure 146/76 H 134/89 Pulse Oximetry 98 93 L 04/22/18 08:00 Temperature Pulse Rate Respiratory Rate Blood Pressure Pulse Oximetry 98 Intake & Output 04/21/18 04/22/18 04/22/18 18:59 06:59 18:59 Intake Total 1725 / 1725 225 / 225 2124 Output Total 170 / 170 870 / 870 Balance 1555 / 1555 -645 / -645 2124 Weight 112.6 kg Intake: IV 1425 / 1425 225 / 225 1125 / 1125 LR 1000 mL Inj 1,000 ML @ 120 1000 / 1000 1000 / 1000 mls/hr IV.CONT .Q8H20M [facility] Rx#: [id number] Cardizem Inj 125 MG In NS Inj 125 / 125 125 / 125 125 / 125 100 ML @ 5 MG/HR 5 mls/hr IV. CONT TITRATE PRN Rx#:[id number] Primaxin Inj 500 MG In NS Inj 300 / 300 100 / 100 100 ML @ 200 mls/hr IV.SIG Q6HR [facility] Rx#:[id number] Oral 300 / 300 Anesthesia Amount 1000 / 1000 Output: Urine 600 / 600 Wound Drainage 170 / 170 270 / 270 # 1 Right Upper Abdomen 170 / 170 270 / 270 Other: # Voids 5 Date of Last Bowel Movement 04/20/18 04/20/18 # Bowel Movements 0 Constitutional no acute distress Routine Respiratory Exam Present CTA bilaterally Routine Cardiovascular Exam Present RRR Routine Abdominal Exam Present soft Comments: drain in place RUQ. Routine Extremities Exam Comments: no pedal edema. Routine Neurological Exam Present alert and oriented X3 Results Labs CBC & Chem 7: 04/22/18 03:25 04/22/18 03:25 Labs: Microbiology 04/18/18 22:45 Blood - Peripheral Aerobic Blood Culture - Final Escherichia coli 04/18/18 22:45 Blood - Peripheral Anaerobic Blood Culture - Final Escherichia coli 04/18/18 23:00 Blood - Peripheral Aerobic Blood Culture - Final Escherichia coli 04/18/18 23:00 Blood - Peripheral Anaerobic Blood Culture - Final Escherichia coli 04/19/18 13:35 Fluid - Gallbladder Gram Stain - Final 04/19/18 13:35 Fluid - Gallbladder Body Fluid Culture - Preliminary Escherichia coli Group D Enterococcus 04/18/18 23:22 Catheterized Urine Urine Culture - Final No growth in 48 hours Assessment and Plan (1) Severe sepsis: Code(s): A41.9 - Sepsis, unspecified organism; R65.20 - Severe sepsis without septic shock Status: Acute (2) Cholecystitis with cholangitis: Code(s): K81.9 - Cholecystitis, unspecified; K83.09 - Other cholangitis Status: Acute (3) UTI (urinary tract infection): Code(s): N39.0 - Urinary tract infection, site not specified Status: Acute (4) Acute cholecystitis due to biliary calculus: Code(s): K80.00 - Calculus of gallbladder with acute cholecystitis without obstruction Status: Acute (5) Hyperbilirubinemia: Code(s): E80.6 - Other disorders of bilirubin metabolism Status: Acute Plan A/P 1. Sepsis 2/2 E coli Bacteremia 2/2 Acute cholecystitis and Cholangitis Blood cxs 2/2 positive for E coli. Gall bladder fluid cx E coli. GI and general surgery are following the patient. MRCP showed acute cholecystitis versus gangrenous cholecystitis. S/p cholecystostomy tube placement by IR which was done on 04/19/2018. On IV antibiotics. s/p ERCP today. We will follow up with their recs. will repeat the cultures today. ID following. 2. New onset A fib No hx of a fib Etiology is likely dud to the patient's current infectious condition. ChadsVasc 3 On cardizem drip. Will increase Metoprolol and continue to monitor. will d/w the patient regarding the anticoagulation if no further procedures planned. 2DEcho shows EF of 55%, no other significant abnormalities. 3. HTN 4. DM 5. BPH Continue flomax On BB, continue to monitor the patient's blood pressure. We will adjust meds as needed. Continue Sliding scale. Continue accu checks. 6. MARIAM 7. Electrolyte abnormalities Serum cr on admit 1.6, improved to 1.1 Electrolytes replaced. SCDs for DVT prophylaxis. Progress Note: Quality VTE Deep Vein Thrombosis/Pulmonary Embolism Present on Admission: No _ (1) UTI (urinary tract infection) Qualifiers: Encounter type: Hematuria presence: without hematuria Indwelling urinary catheter type: Urinary tract infection type: acute cystitis Qualified Code(s) : N30.00 - Acute cystitis without hematuria
--- NOTE | 2018-04-22 11:15 | GIPROC ---
[facility] [address] [facility]. [facility] [place], [address] ERCP PROCEDURE REPORT EXAM DATE: 04/22/2018 PATIENT NAME: Carlitos Flowers MR #: [id number] BIRTHDATE: 1955 ATTENDING: Jovi Sierra MD ORDER #: [id number] [employer]: Sunny Vasques STATUS: inpatient INDICATIONS: The patient is a 63 yr old male here for an ERCP due to abdominal pain of suspected biliary origin and Labs and CT Scan suggesting GS, Cholecystitis, possible CBD stones PROCEDURE PERFORMED: ERCP ERCP with sphincterotomy/papillotomy ERCP with removal of calculus/calculi ERCP with stent placement MEDICATIONS: Per Anesthesia and None. CONSENT: The patient understands the risks and benefits of the procedure and understands that these risks include, but are not limited to: sedation, allergic reaction, infection, perforation and/or bleeding. Alternative means of evaluation and treatment include, among others: physical exam, x-rays, and/or surgical intervention. The patient elects to proceed with this endoscopic procedure. medical equipment was checked for proper function. Hand hygiene and appropriate measures for infection prevention was taken. After the risks, benefits and alternatives of the procedure were thoroughly explained, Informed was verified, confirmed and timeout was successfully executed by the treatment team. With the patient in left semi-prone position, medications were administered intravenously.The Pentax [id number] was passed from the mouth into the esophagus and further advanced from the esophagus into the stomach. From stomach scope was directed to the second portion of the duodenum. Major papilla small,papillary opening pin point hidden under mucosal cardoso. .Sphinctertome passed in GW passed in ,MPD cannulated . No injection done. CBD not cannulated . Precut ,trans Septal done. Following this CBD cannulated selectively.Sphincterotomy extended. Contrast injected CBD, IHDnormal size.Stone extraction balloon passed in .Multiple small stones pulled out.Finally a 8.5 F X 9 CM passed in CBD. The scope was then completely withdrawn from the patient and the procedure completed. The pulse, BP, and O2 saturation were monitored and documented by the physician and the nursing staff throughout the entire procedure. The patient was cared for as planned according to standard protocol. The patient was then discharged to recovery in stable condition and with appropriate post procedure care. Th ADVERSE EVENT: There were no complications. IMPRESSIONS: 1. The biliary tree appeared normal with no evidence of stricture or dilation 2. Ampulla appeared smaller than normal. The ampulla was small and difficult to locate 3. Suspected cbd stones RECOMMENDATIONS: 1. Antibiotics 2. Cholecystectomy REPEAT EXAM: Return as needed for ERCP Jovi Sierra MD eSigned: Jovi Sierra MD 04/22/2018 11:14 AM cc: PATIENT NAME: Carlitos Flowers MR#: [id number]
[2018-04-22] MEDS: Metoprolol Tartrate 50 MG Tablet PO SCH ×2 (14:16→21:18)
--- NOTE | 2018-04-22 14:32 | P.PNID ---
Subjective Remarks: pt is doing well sp ERCP: + CBD calculi no fever growing enterocci and E coli in bile and E.coli in blood Antibiotics: primaxin Allergies/Adverse Reactions: Allergies penicillin G Allergy (Intermediate, Verified 04/18/18 23:22) Rash Rash all over body Objective Vital Signs 04/21/18 14:00 04/21/18 15:00 04/21/18 16:00 Temperature 98.8 F Pulse Rate 109 H 108 H 102 H Respiratory Rate 20 18 23 Blood Pressure Pulse Oximetry 99 96 93 L 04/21/18 17:00 04/21/18 18:00 04/21/18 18:41 Temperature Pulse Rate 105 H 116 H 85 Respiratory Rate 20 20 19 Blood Pressure 116/70 Pulse Oximetry 96 96 95 04/21/18 19:00 04/21/18 20:00 04/21/18 20:48 Temperature 98.4 F Pulse Rate 85 86 88 Respiratory Rate 23 20 23 Blood Pressure 120/61 Pulse Oximetry 99 99 99 04/21/18 21:00 04/21/18 22:00 04/21/18 23:00 Temperature Pulse Rate 95 H 92 H 98 H Respiratory Rate 17 23 24 Blood Pressure Pulse Oximetry 97 95 98 04/21/18 23:41 04/22/18 00:00 04/22/18 01:00 Temperature 98.4 F Pulse Rate 93 H 98 H 96 H Respiratory Rate 23 23 15 Blood Pressure 103/55 L Pulse Oximetry 98 99 99 04/22/18 01:51 04/22/18 01:54 04/22/18 02:00 Temperature Pulse Rate 99 H 100 H 96 H Respiratory Rate 22 23 18 Blood Pressure 129/73 120/57 L Pulse Oximetry 100 99 98 04/22/18 02:02 04/22/18 03:00 04/22/18 03:02 Temperature Pulse Rate 95 H 93 H 93 H Respiratory Rate 17 14 14 Blood Pressure 125/66 127/63 Pulse Oximetry 99 99 98 04/22/18 04:00 04/22/18 04:02 04/22/18 05:00 Temperature 98.6 F Pulse Rate 90 90 117 H Respiratory Rate 23 15 16 Blood Pressure 118/66 Pulse Oximetry 99 99 97 04/22/18 05:02 04/22/18 06:00 04/22/18 06:02 Temperature Pulse Rate 108 H 96 H 90 Respiratory Rate 16 24 24 Blood Pressure 133/96 H 146/76 H Pulse Oximetry 95 98 98 04/22/18 07:02 04/22/18 07:56 04/22/18 08:00 Temperature Pulse Rate 111 H Respiratory Rate 21 Blood Pressure 134/89 Pulse Oximetry 93 L 98 04/22/18 09:36 04/22/18 09:50 04/22/18 09:53 Temperature Pulse Rate 102 H 128 H 111 H Respiratory Rate Blood Pressure 125/82 84/50 L 88/54 L Pulse Oximetry 98 98 98 04/22/18 09:54 04/22/18 09:57 04/22/18 10:00 Temperature Pulse Rate 103 H 112 H 116 H Respiratory Rate Blood Pressure 84/57 L 105/61 102/58 L Pulse Oximetry 98 98 98 04/22/18 10:03 04/22/18 10:04 04/22/18 10:06 Temperature Pulse Rate 106 H 113 H 109 H Respiratory Rate Blood Pressure 81/56 L 111/63 99/62 L Pulse Oximetry 98 98 98 04/22/18 10:09 04/22/18 10:12 04/22/18 10:18 Temperature Pulse Rate 119 H 116 H 134 H Respiratory Rate Blood Pressure 113/75 133/83 180/116 H Pulse Oximetry 97 98 99 04/22/18 10:19 04/22/18 10:20 04/22/18 10:24 Temperature Pulse Rate 116 H 116 H 116 H Respiratory Rate Blood Pressure 156/87 H 173/89 H 91/54 L Pulse Oximetry 99 98 89 L 04/22/18 10:27 04/22/18 10:30 04/22/18 10:33 Temperature 98.9 F Pulse Rate 118 H 108 H 110 H Respiratory Rate 20 Blood Pressure 148/95 H 168/85 H 133/78 Pulse Oximetry 91 L 93 L 93 L 04/22/18 10:45 04/22/18 11:00 04/22/18 11:03 Temperature Pulse Rate 96 H 101 H 101 H Respiratory Rate 16 14 Blood Pressure 141/75 H 133/75 Pulse Oximetry 98 98 99 04/22/18 11:12 04/22/18 11:14 04/22/18 11:20 Temperature 98.7 F Pulse Rate 102 H 102 H 103 H Respiratory Rate 13 Blood Pressure 142/68 H 133/80 Pulse Oximetry 98 97 96 04/22/18 11:35 04/22/18 11:50 04/22/18 12:00 Temperature 98.5 F Pulse Rate 96 H 101 H 107 H Respiratory Rate 22 23 24 Blood Pressure 122/65 139/68 Pulse Oximetry 94 L 98 96 04/22/18 12:05 04/22/18 12:20 04/22/18 12:34 Temperature Pulse Rate 107 H 104 H 103 H Respiratory Rate 20 5 L Blood Pressure 137/64 143/74 H Pulse Oximetry 96 98 98 04/22/18 12:35 Temperature Pulse Rate Respiratory Rate Blood Pressure 154/70 H Pulse Oximetry Intake & Output 04/21/18 04/22/18 04/22/18 18:59 06:59 18:59 Intake Total 1725 / 1725 225 / 225 2325 / 2325 Output Total 170 / 170 870 / 870 110 / 110 Balance 1555 / 1555 -645 / -645 2215 / 2215 Weight 112.6 kg Intake: IV 1425 / 1425 225 / 225 1325 / 1325 LR 1000 mL Inj 1,000 ML @ 120 1000 / 1000 1000 / 1000 mls/hr IV.CONT .Q8H20M [facility] Rx#: [id number] Cardizem Inj 125 MG In NS Inj 125 / 125 125 / 125 125 / 125 100 ML @ 5 MG/HR 5 mls/hr IV. CONT TITRATE PRN Rx#:[id number] Primaxin Inj 500 MG In NS Inj 300 / 300 100 / 100 200 / 200 100 ML @ 200 mls/hr IV.SIG Q6HR [facility] Rx#:[id number] Oral 300 / 300 Anesthesia Amount 1000 / 1000 Output: Urine 600 / 600 Wound Drainage 170 / 170 270 / 270 110 / 110 # 1 Right Upper Abdomen 170 / 170 270 / 270 110 / 110 Other: # Voids 5 Date of Last Bowel Movement 04/20/18 04/20/18 # Bowel Movements 0 04/22/18 13:14 Blood - Peripheral Aerobic Blood Culture - Pending 04/22/18 13:14 Blood - Peripheral Anaerobic Blood Culture - Pending 04/18/18 22:45 Blood - Peripheral Aerobic Blood Culture - Final Escherichia coli 04/18/18 22:45 Blood - Peripheral Anaerobic Blood Culture - Final Escherichia coli 04/18/18 23:00 Blood - Peripheral Aerobic Blood Culture - Final Escherichia coli 04/18/18 23:00 Blood - Peripheral Anaerobic Blood Culture - Final Escherichia coli 04/19/18 13:35 Fluid - Gallbladder Gram Stain - Final 04/19/18 13:35 Fluid - Gallbladder Body Fluid Culture - Preliminary Escherichia coli Group D Enterococcus 04/18/18 23:22 Catheterized Urine Urine Culture - Final No growth in 48 hours Lab - Hematology Results 04/21/18 04/22/18 05:14 03:25 WBC 4.2 5.1 RBC 4.58 4.56 Hgb 10.4 L 9.8 L Hct 31.3 L 30.5 L MCV 68.2 L 66.9 L MCH 22.7 L 21.6 L MCHC 33.3 32.2 RDW 15.8 15.9 Plt Count 126 L 158 MPV 9.6 10.0 Neut % (Auto) 66.8 65.4 Lymph % (Auto) 18.5 19.4 [place] % (Auto) 12.1 H 12.2 H Eos % (Auto) 1.2 1.7 Baso % (Auto) 1.4 1.3 Neut # (Auto) 2.8 3.3 Lymph # (Auto) 0.8 L 1.0 [place] # (Auto) 0.5 0.6 Eos # (Auto) 0.0 0.1 Baso # (Auto) 0.1 0.1 WBC Differential . . Differential Comment Auto diff final Auto diff final Lab - Chemistry Results 04/20/18 04/21/18 04/21/18 14:11 00:29 05:14 Sodium 140 Potassium 3.5 Chloride 106 Carbon Dioxide 27.8 Anion Gap 6 BUN 13 Creatinine 1.01 Estimated GFR 74 L POC Glucose 143 H 178 H Random Glucose 135 H Calcium 7.7 L Phosphorus 1.8 L Magnesium 1.7 Total Bilirubin 3.0 H AST 48 H ALT 108 H Alkaline Phosphatase 128 H Total Protein 6.2 L Albumin 2.2 L 04/21/18 04/21/18 04/22/18 11:41 17:04 00:05 Sodium Potassium Chloride Carbon Dioxide Anion Gap BUN Creatinine Estimated GFR POC Glucose 166 H 178 H 172 H Random Glucose Calcium Phosphorus Magnesium Total Bilirubin AST ALT Alkaline Phosphatase Total Protein Albumin 04/22/18 04/22/18 04/22/18 03:25 11:00 11:38 Sodium 141 Potassium 3.7 Chloride 107 Carbon Dioxide 27.3 Anion Gap 7 BUN 11 Creatinine 0.90 Estimated GFR 85 L POC Glucose 224 H 217 H Random Glucose 127 H Calcium 8.1 L Phosphorus 2.0 L Magnesium 1.8 Total Bilirubin 2.4 H AST 44 H ALT 82 H Alkaline Phosphatase 112 Total Protein 5.9 L Albumin 2.0 L Imaging: ITS Impressions Chest X-Ray 04/18/18 22:36 CONCLUSION: No acute disease Percutaneous Cholangiogram 04/19/18 00:00 CONCLUSION: 1. Uncomplicated percutaneous cholecystostomy as above. The patient has a patent cystic duct, however, there is occlusion of the common bile duct at the level of the ampulla. This is likely relating to a stone. Cholecystostomy tube placement was felt prudent to decompress the biliary system as detailed above. Turbid bile was noted and a sample sent to the lab for culture. Abdomen/Pelvis CT 04/19/18 00:18 CONCLUSION: 1. Severe changes of cholecystitis. There is no significant gallbladder lumen to allow for percutaneous cholecystostomy. 2. Hepatosplenomegaly. Cholangiopancreatography MRI 04/19/18 04:18 CONCLUSION: 1. Abnormal appearance to the gallbladder and hepatic parenchyma immediately surrounding the gallbladder fossa (rim sign) with multiple gallstones and significant gallbladder wall thickening. Differential considerations include acute cholecystitis and gangrenous cholecystitis. 2. No dilation of the intra or extrahepatic biliary system. Physical Exam: GENERAL: NAD SKIN: Warm and dry. NO rash HEAD: Atraumatic. Normocephalic. EYES: Pupils equal and round. No scleral icterus. No injection or drainage. ENT: No nasal bleeding or discharge. Mucous membranes pink and moist. NECK: Trachea midline. No JVD. CARDIOVASCULAR: Regular rate and rhythm. RESPIRATORY: No accessory muscle use. Clear to auscultation. Breath sounds equal bilaterally. GASTROINTESTINAL: Abdomen soft, moderately tender RUQ , mildly distended. bikliary drain in palce Hepatic and splenic margins not palpable. MUSCULOSKELETAL: Extremities without clubbing, cyanosis, or edema. No obvious deformities. NEUROLOGICAL: Awake and alert. No obvious cranial nerve deficits. Motor grossly within normal limits. Five out of 5 muscle strength in the arms and legs. Normal speech. PSYCHIATRIC: Appropriate mood and affect; insight and judgment normal. Assessment and Plan - Plan Acute cholecytytis, possibly caculous sp cholecystostomy placment with plan for delayed cholecystectomy E.coli sepsis - from acute cholecystitis PCN allergy, unknown type cont Primaxin fu repeat clx
[2018-04-23] MEDS: Insulin NovoLIN Regular Correctional Sugar Inj SQ SCH ×5 (00:31→20:28)
[2018-04-23 03:54] LABS: Baso # (Auto) 0.1 th/mm3 (0.0-0.2); Baso % (Auto) 1.1 % (0.0-2.0); Eos # (Auto) 0.1 th/mm3 (0.0-0.4); Eos % (Auto) 1.6 % (0.0-4.0); Hematocrit 29.7 % (39.0-51.0); Hemoglobin 9.6 gm/dL (13.0-17.0); Lymph % (Auto) 20.4 % (9.0-44.0); Mean Corpuscular HGB Conc 32.4 % (32.0-36.0); Mean Corpuscular Hemoglobin 21.8 pg (27.0-34.0); Mean Corpuscular Volume 67.2 fL (80.0-100.0); Mean Platelet Volume 8.9 fL (7.0-11.0); Mono # (Auto) 0.6 th/mm3 (0.0-0.9); Mono % (Auto) 11.5 % (0.0-8.0); Neut # (Auto) 3.2 th/mm3 (1.8-7.7); Neut % (Auto) 65.4 % (16.0-70.0); Platelet Count 187 th/mm3 (150-450); Red Blood Count 4.42 mil/mm3 (4.50-5.90); Red Cell Distribution Width 15.9 % (11.6-17.2); White Blood Count 4.9 th/mm3 (4.0-11.0)
[2018-04-23 04:02] LABS: INR 1.1 Ratio; Prothrombin Time 10.7 sec (9.8-11.6)
[2018-04-23] MEDS: Acetaminophen 325 MG Tablet PO PRN (04:14)
[2018-04-23 04:24] LABS: Albumin 2.1 g/dL (3.4-5.0); Anion Gap 5 meq/L (5-15); Aspartate Aminotransferase 79 U/L (15-37); Blood Urea Nitrogen 12 mg/dL (7-18); Calcium 7.9 mg/dL (8.5-10.1); Carbon Dioxide 29.9 meq/L (21.0-32.0); Chloride 109 meq/L (98-107); Glomerular Filtration Rate 73 mL/min (>89); Glucose,Random 136 mg/dL (74-106); Magnesium 1.4 mg/dL (1.5-2.5); Potassium 3.6 meq/L (3.5-5.1); Sodium 144 meq/L (136-145)
[2018-04-23 04:31] LABS: Alanine Aminotransferase 87 U/L (12-78); Alkaline Phosphatase 104 U/L (45-117); Phosphorus 3.3 mg/dL (2.5-4.9); Total Protein 5.8 g/dL (6.4-8.2)
[2018-04-23] MEDS: Chlorhexidine Gluconate 2% 1 Pack (2 Cloths) TOPICAL SCH (04:40)
[2018-04-23] MEDS: Metoprolol Tartrate 50 MG Tablet PO SCH ×3 (06:22→21:09)
--- NOTE | 2018-04-23 09:19 | P.PNIM ---
Subjective Interval history: in no acute distress. no abdominal pain, nausea,vomiting. no fever. Physical Exam Vital signs: Vital Signs 04/22/18 09:36 04/22/18 09:50 04/22/18 09:53 Temperature Pulse Rate 102 H 128 H 111 H Respiratory Rate Blood Pressure 125/82 84/50 L 88/54 L Pulse Oximetry 98 98 98 04/22/18 09:54 04/22/18 09:57 04/22/18 10:00 Temperature Pulse Rate 103 H 112 H 116 H Respiratory Rate Blood Pressure 84/57 L 105/61 102/58 L Pulse Oximetry 98 98 98 04/22/18 10:03 04/22/18 10:04 04/22/18 10:06 Temperature Pulse Rate 106 H 113 H 109 H Respiratory Rate Blood Pressure 81/56 L 111/63 99/62 L Pulse Oximetry 98 98 98 04/22/18 10:09 04/22/18 10:12 04/22/18 10:18 Temperature Pulse Rate 119 H 116 H 134 H Respiratory Rate Blood Pressure 113/75 133/83 180/116 H Pulse Oximetry 97 98 99 04/22/18 10:19 04/22/18 10:20 04/22/18 10:24 Temperature Pulse Rate 116 H 116 H 116 H Respiratory Rate Blood Pressure 156/87 H 173/89 H 91/54 L Pulse Oximetry 99 98 89 L 04/22/18 10:27 04/22/18 10:30 04/22/18 10:33 Temperature 98.9 F Pulse Rate 118 H 108 H 110 H Respiratory Rate 20 Blood Pressure 148/95 H 168/85 H 133/78 Pulse Oximetry 91 L 93 L 93 L 04/22/18 10:45 04/22/18 11:00 04/22/18 11:03 Temperature Pulse Rate 96 H 101 H 101 H Respiratory Rate 16 14 Blood Pressure 141/75 H 133/75 Pulse Oximetry 98 98 99 04/22/18 11:12 04/22/18 11:14 04/22/18 11:20 Temperature 98.7 F Pulse Rate 102 H 102 H 103 H Respiratory Rate 13 Blood Pressure 142/68 H 133/80 Pulse Oximetry 98 97 96 04/22/18 11:35 04/22/18 11:50 04/22/18 12:00 Temperature 98.5 F Pulse Rate 96 H 101 H 107 H Respiratory Rate 22 23 24 Blood Pressure 122/65 139/68 Pulse Oximetry 94 L 98 96 04/22/18 12:05 04/22/18 12:20 04/22/18 12:34 Temperature Pulse Rate 107 H 104 H 103 H Respiratory Rate 20 5 L Blood Pressure 137/64 143/74 H Pulse Oximetry 96 98 98 04/22/18 12:35 04/22/18 12:36 04/22/18 13:24 Temperature Pulse Rate 113 H 111 H Respiratory Rate Blood Pressure 154/70 H 124/65 Pulse Oximetry 04/22/18 13:30 04/22/18 14:00 04/22/18 14:30 Temperature Pulse Rate 107 H 116 H 103 H Respiratory Rate 16 20 21 Blood Pressure 145/64 H 121/81 122/66 Pulse Oximetry 93 L 95 97 04/22/18 15:00 04/22/18 15:30 04/22/18 16:00 Temperature Pulse Rate 83 83 91 H Respiratory Rate 22 18 24 Blood Pressure 113/57 L 107/58 L 121/69 Pulse Oximetry 97 96 97 04/22/18 16:30 04/22/18 17:00 04/22/18 17:30 Temperature Pulse Rate 91 H 90 91 H Respiratory Rate 22 22 21 Blood Pressure 118/79 127/76 116/77 Pulse Oximetry 95 96 95 04/22/18 18:00 04/22/18 18:15 04/22/18 18:30 Temperature Pulse Rate 98 H 96 H 94 H Respiratory Rate 22 26 H 19 Blood Pressure 131/60 131/73 Pulse Oximetry 98 97 97 04/22/18 18:45 04/22/18 19:00 04/22/18 19:15 Temperature Pulse Rate 92 H 106 H 103 H Respiratory Rate 22 24 Blood Pressure 138/72 Pulse Oximetry 97 97 96 04/22/18 19:30 04/22/18 19:45 04/22/18 19:48 Temperature Pulse Rate 101 H 98 H 107 H Respiratory Rate 20 25 H 27 H Blood Pressure 150/87 H Pulse Oximetry 95 94 L 96 04/22/18 20:00 04/22/18 20:15 04/22/18 20:30 Temperature 98.1 F Pulse Rate 101 H 104 H 99 H Respiratory Rate 16 21 21 Blood Pressure 152/81 H 142/80 H Pulse Oximetry 96 95 94 L 04/22/18 20:45 02/18/19 21:00 04/22/18 21:15 Temperature Pulse Rate 96 H 98 H 103 H Respiratory Rate 28 H 17 26 H Blood Pressure 145/79 H Pulse Oximetry 97 93 L 96 04/22/18 21:30 04/22/18 21:45 04/22/18 22:00 Temperature Pulse Rate 103 H 91 H 74 Respiratory Rate 25 H 38 H 22 Blood Pressure 148/72 H 128/76 Pulse Oximetry 96 97 96 04/22/18 22:15 04/22/18 22:30 04/22/18 22:51 Temperature Pulse Rate 73 74 82 Respiratory Rate 33 H 15 26 H Blood Pressure Pulse Oximetry 93 L 96 94 L 04/22/18 23:00 04/22/18 23:15 04/22/18 23:19 Temperature Pulse Rate 81 78 78 Respiratory Rate 32 H 9 L 24 Blood Pressure 127/64 Pulse Oximetry 97 88 L 91 L 04/22/18 23:30 04/22/18 23:45 04/23/18 00:00 Temperature Pulse Rate 78 72 74 Respiratory Rate 24 12 15 Blood Pressure Pulse Oximetry 89 L 88 L 91 L 04/23/18 00:15 04/23/18 00:19 04/23/18 00:30 Temperature Pulse Rate 80 80 78 Respiratory Rate 21 25 H 23 Blood Pressure 119/67 Pulse Oximetry 95 92 L 93 L 04/23/18 00:45 04/23/18 01:00 04/23/18 01:19 Temperature 98.8 F Pulse Rate 77 74 75 Respiratory Rate 20 23 17 Blood Pressure 119/67 145/67 H Pulse Oximetry 92 L 94 L 91 L 04/23/18 02:00 04/23/18 02:19 04/23/18 03:00 Temperature Pulse Rate 89 83 81 Respiratory Rate 33 H 9 L 25 H Blood Pressure 145/67 H 142/68 H Pulse Oximetry 88 L 92 L 87 L 04/23/18 03:19 04/23/18 04:00 04/23/18 04:27 Temperature 99.5 F Pulse Rate 77 78 77 Respiratory Rate 0 L 16 Blood Pressure 144/71 H 131/80 131/80 Pulse Oximetry 86 L 90 L 95 04/23/18 05:00 04/23/18 05:19 04/23/18 06:00 Temperature Pulse Rate 71 75 74 Respiratory Rate 12 Blood Pressure 121/66 Pulse Oximetry 93 L 90 L 82 L 04/23/18 06:19 04/23/18 07:00 04/23/18 07:36 Temperature 98.6 F Pulse Rate 77 72 Respiratory Rate 12 9 L Blood Pressure 131/62 Pulse Oximetry 92 L 93 L 93 L Intake & Output 04/22/18 04/23/18 04/23/18 18:59 06:59 18:59 Intake Total 3203 / 3203 1680 / 1680 Output Total 110 / 110 130 / 130 Balance 3093 / 3093 1550 / 1550 Weight 115.5 kg Intake: IV 2203 / 2203 1200 / 1200 LR 1000 mL Inj 1,000 ML @ 120 1753 / 1753 1000 / 1000 mls/hr IV.CONT .Q8H20M [facility] Rx#: [id number] Cardizem Inj 125 MG In NS Inj 250 / 250 100 ML @ 5 MG/HR 5 mls/hr IV. CONT TITRATE PRN Rx#:[id number] Primaxin Inj 500 MG In NS Inj 200 / 200 200 / 200 100 ML @ 200 mls/hr IV.SIG Q6HR [facility] Rx#:[id number] Oral 480 / 480 Anesthesia Amount 1000 / 1000 Output: Urine 100 / 100 Wound Drainage 110 / 110 30 / 30 # 1 Right Upper Abdomen 110 / 110 30 / 30 Other: # Voids 5 2 # Bowel Movements 0 Constitutional no acute distress Routine Respiratory Exam Present CTA bilaterally Routine Cardiovascular Exam Present RRR Routine Abdominal Exam Present soft Routine Extremities Exam Comments: no pedal edema. Routine Neurological Exam Present alert and oriented X3 Results Labs CBC & Chem 7: 04/23/18 03:41 04/23/18 03:41 Labs: Microbiology 04/19/18 13:35 Fluid - Gallbladder Gram Stain - Final 04/19/18 13:35 Fluid - Gallbladder Body Fluid Culture - Final Escherichia coli Enterococcus faecium 04/18/18 22:45 Blood - Peripheral Aerobic Blood Culture - Final Escherichia coli 04/18/18 22:45 Blood - Peripheral Anaerobic Blood Culture - Final Escherichia coli 04/18/18 23:00 Blood - Peripheral Aerobic Blood Culture - Final Escherichia coli 04/18/18 23:00 Blood - Peripheral Anaerobic Blood Culture - Final Escherichia coli Imaging Imaging: Impressions GI Procedure 04/22/18 00:00 CONCLUSION: Successful placement of Silastic stent by ERCP Procedures Procedures: ERCP. Assessment and Plan (1) Severe sepsis: Code(s): A41.9 - Sepsis, unspecified organism; R65.20 - Severe sepsis without septic shock Status: Acute (2) Cholecystitis with cholangitis: Code(s): K81.9 - Cholecystitis, unspecified; K83.09 - Other cholangitis Status: Acute (3) UTI (urinary tract infection): Code(s): N39.0 - Urinary tract infection, site not specified Status: Acute (4) Acute cholecystitis due to biliary calculus: Code(s): K80.00 - Calculus of gallbladder with acute cholecystitis without obstruction Status: Acute (5) Hyperbilirubinemia: Code(s): E80.6 - Other disorders of bilirubin metabolism Status: Acute Plan A/P 1. Sepsis 2/2 E coli Bacteremia 2/2 Acute cholecystitis and Cholangitis Blood cxs 2/2 positive for E coli. Gall bladder fluid cx E coli. MRCP showed acute cholecystitis versus gangrenous cholecystitis. S/p cholecystostomy tube placement by IR which was done on 04/19/2018. s/p ERCP with sphincterotomy/calculi removal and stent placement. On IV antibiotics. cholecystectomy in few weeks per general surgery. follow the repeated blood cultures. ID following. 2. New onset A fib No hx of a fib Etiology is likely dud to the patient's current infectious condition. ChadsVasc 3 continue Metoprolol and continue to monitor. will d/w the patient regarding the anticoagulation if no further procedures planned. 2DEcho shows EF of 55%, no other significant abnormalities. 3. HTN 4. DM 5. BPH Continue flomax On BB, continue to monitor the patient's blood pressure. We will adjust meds as needed. Continue Sliding scale. Continue accu checks. 6. MARIAM 7. Electrolyte abnormalities Serum cr on admit 1.6, improved to 1.1 Electrolytes replaced. SCDs for DVT prophylaxis. transfer to floor. Progress Note: Quality VTE Deep Vein Thrombosis/Pulmonary Embolism Present on Admission: No _ (1) UTI (urinary tract infection) Qualifiers: Encounter type: Hematuria presence: without hematuria Indwelling urinary catheter type: Urinary tract infection type: acute cystitis Qualified Code(s) : N30.00 - Acute cystitis without hematuria
[2018-04-23] MEDS: Pantoprazole Inj 40 MG Vial IV.PUSH SCH (09:54)
[2018-04-23] MEDS: Magnesium Oxide 400 MG Tablet PO SCH ×2 (13:40→20:27)
--- NOTE | 2018-04-23 14:04 | P.PNGI ---
Subjective Interval history: Patient semirecumbent in bed Denies abdominal pain nausea vomiting States he is hungry-tolerating clear liquids Post biliary drain placement Physical Exam Vital signs: Vital Signs 04/22/18 14:00 04/22/18 14:30 04/22/18 15:00 Temperature Pulse Rate 116 H 103 H 83 Respiratory Rate 20 21 22 Blood Pressure 121/81 122/66 113/57 L Pulse Oximetry 95 97 97 04/22/18 15:30 04/22/18 16:00 04/22/18 16:30 Temperature Pulse Rate 83 91 H 91 H Respiratory Rate 18 24 22 Blood Pressure 107/58 L 121/69 118/79 Pulse Oximetry 96 97 95 04/22/18 17:00 04/22/18 17:30 04/22/18 18:00 Temperature Pulse Rate 90 91 H 98 H Respiratory Rate 22 21 22 Blood Pressure 127/76 116/77 131/60 Pulse Oximetry 96 95 98 04/22/18 18:15 04/22/18 18:30 04/22/18 18:45 Temperature Pulse Rate 96 H 94 H 92 H Respiratory Rate 26 H 19 22 Blood Pressure 131/73 Pulse Oximetry 97 97 97 04/22/18 19:00 04/22/18 19:15 04/22/18 19:30 Temperature Pulse Rate 106 H 103 H 101 H Respiratory Rate 24 20 Blood Pressure 138/72 Pulse Oximetry 97 96 95 04/22/18 19:45 04/22/18 19:48 04/22/18 20:00 Temperature 98.1 F Pulse Rate 98 H 107 H 101 H Respiratory Rate 25 H 27 H 16 Blood Pressure 150/87 H 152/81 H Pulse Oximetry 94 L 96 96 04/22/18 20:15 04/22/18 20:30 04/22/18 20:45 Temperature Pulse Rate 104 H 99 H 96 H Respiratory Rate 21 21 28 H Blood Pressure 142/80 H Pulse Oximetry 95 94 L 97 04/22/18 21:00 04/22/18 21:15 04/22/18 21:30 Temperature Pulse Rate 98 H 103 H 103 H Respiratory Rate 17 26 H 25 H Blood Pressure 145/79 H 148/72 H Pulse Oximetry 93 L 96 96 04/22/18 21:45 04/22/18 22:00 04/22/18 22:15 Temperature Pulse Rate 91 H 74 73 Respiratory Rate 38 H 22 33 H Blood Pressure 128/76 Pulse Oximetry 97 96 93 L 04/22/18 22:30 04/22/18 22:51 04/22/18 23:00 Temperature Pulse Rate 74 82 81 Respiratory Rate 15 26 H 32 H Blood Pressure Pulse Oximetry 96 94 L 97 04/22/18 23:15 04/22/18 23:19 04/22/18 23:30 Temperature Pulse Rate 78 78 78 Respiratory Rate 9 L 24 24 Blood Pressure 127/64 Pulse Oximetry 88 L 91 L 89 L 04/22/18 23:45 04/23/18 00:00 04/23/18 00:15 Temperature Pulse Rate 72 74 80 Respiratory Rate 12 15 21 Blood Pressure Pulse Oximetry 88 L 91 L 95 04/23/18 00:19 04/23/18 00:30 04/23/18 00:45 Temperature Pulse Rate 80 78 77 Respiratory Rate 25 H 23 20 Blood Pressure 119/67 119/67 Pulse Oximetry 92 L 93 L 92 L 04/23/18 01:00 04/23/18 01:19 04/23/18 02:00 Temperature 98.8 F Pulse Rate 74 75 89 Respiratory Rate 23 17 33 H Blood Pressure 145/67 H 145/67 H Pulse Oximetry 94 L 91 L 88 L 04/23/18 02:19 04/23/18 03:00 04/23/18 03:19 Temperature Pulse Rate 83 81 77 Respiratory Rate 9 L 25 H 0 L Blood Pressure 142/68 H 144/71 H Pulse Oximetry 92 L 87 L 86 L 04/23/18 04:00 04/23/18 04:27 04/23/18 05:00 Temperature 99.5 F Pulse Rate 78 77 71 Respiratory Rate 16 12 Blood Pressure 131/80 131/80 Pulse Oximetry 90 L 95 93 L 04/23/18 05:19 04/23/18 06:00 04/23/18 06:19 Temperature Pulse Rate 75 74 77 Respiratory Rate 12 Blood Pressure 121/66 131/62 Pulse Oximetry 90 L 82 L 92 L 04/23/18 07:00 04/23/18 07:36 Temperature 98.6 F Pulse Rate 72 Respiratory Rate 9 L Blood Pressure Pulse Oximetry 93 L 93 L Intake & Output 04/22/18 04/23/18 04/23/18 18:59 06:59 18:59 Intake Total 3203 / 3203 1680 / 1680 100 / 100 Output Total 110 / 110 130 / 130 Balance 3093 / 3093 1550 / 1550 100 / 100 Weight 115.5 kg Intake: IV 2203 / 2203 1200 / 1200 100 / 100 LR 1000 mL Inj 1,000 ML @ 120 1753 / 1753 1000 / 1000 mls/hr IV.CONT .Q8H20M [facility] Rx#: [id number] Cardizem Inj 125 MG In NS Inj 250 / 250 100 ML @ 5 MG/HR 5 mls/hr IV. CONT TITRATE PRN Rx#:[id number] Primaxin Inj 500 MG In NS Inj 200 / 200 200 / 200 100 / 100 100 ML @ 200 mls/hr IV.SIG Q6HR [facility] Rx#:[id number] Oral 480 / 480 Anesthesia Amount 1000 / 1000 Output: Urine 100 / 100 Wound Drainage 110 / 110 30 / 30 # 1 Right Upper Abdomen 110 / 110 30 / 30 Other: # Voids 5 2 # Bowel Movements 0 - Constitutional no acute distress, cooperative - Routine HEENT Exam Head: Present: normocephalic - Routine Respiratory Exam Present: CTA bilaterally. Absent: accessory muscle use - Routine Abdominal Exam Present: soft, normoactive bowel sounds, drain. Absent: tenderness Comments: Biliary drain present right upper quadrant draining green colored fluid Drained 140 mL's overnight - Routine Extremities Exam Absent: edema - Routine Skin Exam Present: dry, warm - Routine Neurological Exam Present: alert, oriented X3 - Routine Psychiatric Exam Present: normal affect, cooperative Results - Labs CBC & Chem 7: 04/23/18 03:41 04/23/18 03:41 Laboratory Results - last 24 hr 04/22/18 04/23/18 04/23/18 17:57 00:04 03:41 WBC 4.9 RBC 4.42 L Hgb 9.6 L Hct 29.7 L MCV 67.2 L MCH 21.8 L MCHC 32.4 RDW 15.9 Plt Count 187 MPV 8.9 Neut % (Auto) 65.4 Lymph % (Auto) 20.4 Lares % (Auto) 11.5 H Eos % (Auto) 1.6 Baso % (Auto) 1.1 Neut # (Auto) 3.2 Lymph # (Auto) 1.0 Lares # (Auto) 0.6 Eos # (Auto) 0.1 Baso # (Auto) 0.1 WBC Differential . Differential Comment Auto diff final PT INR Sodium Potassium Chloride Carbon Dioxide Anion Gap BUN Creatinine Estimated GFR POC Glucose 165 H 179 H Random Glucose Calcium Phosphorus Magnesium Total Bilirubin AST ALT Alkaline Phosphatase Total Protein Albumin 04/23/18 04/23/18 04/23/18 03:41 03:41 13:27 WBC RBC Hgb Hct MCV MCH MCHC RDW Plt Count MPV Neut % (Auto) Lymph % (Auto) Lares % (Auto) Eos % (Auto) Baso % (Auto) Neut # (Auto) Lymph # (Auto) Lares # (Auto) Eos # (Auto) Baso # (Auto) WBC Differential Differential Comment PT 10.7 INR 1.1 Sodium 144 Potassium 3.6 Chloride 109 H Carbon Dioxide 29.9 Anion Gap 5 BUN 12 Creatinine 1.02 Estimated GFR 73 L POC Glucose 129 H Random Glucose 136 H Calcium 7.9 L Phosphorus 3.3 D Magnesium 1.4 L Total Bilirubin 2.0 H AST 79 H ALT 87 H Alkaline Phosphatase 104 Total Protein 5.8 L Albumin 2.1 L Microbiology 04/22/18 13:14 Blood - Peripheral Aerobic Blood Culture - Preliminary No growth in 1 day 04/22/18 13:14 Blood - Peripheral Anaerobic Blood Culture - Preliminary No growth in 1 day 04/19/18 13:35 Fluid - Gallbladder Gram Stain - Final 04/19/18 13:35 Fluid - Gallbladder Body Fluid Culture - Final Escherichia coli Enterococcus faecium 04/18/18 22:45 Blood - Peripheral Aerobic Blood Culture - Final Escherichia coli 04/18/18 22:45 Blood - Peripheral Anaerobic Blood Culture - Final Escherichia coli 04/18/18 23:00 Blood - Peripheral Aerobic Blood Culture - Final Escherichia coli 04/18/18 23:00 Blood - Peripheral Anaerobic Blood Culture - Final Escherichia coli - Procedures ERCP. Assessment and Plan (1) Severe sepsis Status: Acute Code(s): A41.9 - Sepsis, unspecified organism; R65.20 - Severe sepsis without septic shock (2) Cholecystitis with cholangitis Status: Acute Code(s): K81.9 - Cholecystitis, unspecified; K83.09 - Other cholangitis (3) UTI (urinary tract infection) Status: Acute Code(s): N39.0 - Urinary tract infection, site not specified (4) Acute cholecystitis due to biliary calculus Status: Acute Code(s): K80.00 - Calculus of gallbladder with acute cholecystitis without obstruction (5) Hyperbilirubinemia Status: Acute Code(s): E80.6 - Other disorders of bilirubin metabolism - Plan CT scan 04/19/2018 showed severe changes of cholecystitis there is no significant gallbladder lumen to allow for percutaneous cholecystostomy. hepatosplenomegaly MRCP - abnormal appearance of GB and hepatic parenchyma. multiple gb stones. acute versus gangrenous cholecystitis .No dilatation of the intra or extra hepatic ducts 04/20/2018 Assessment Acute cholecystitis cholangitis -patient symptomatology is definitely gone down abdominal pain has resolved patient has ambulated the hallway. Biliary drain patent Status post IR placement of biliary drain 04/19/2018 Percutaneous cholecystostomy tube drain cholangiogram shows occlusion CBD near ampulla Hemoglobin 9.7 hematocrit 30.1 platelet 110 WBC 4.6 INR 1.2 liver enzymes trending down AST 62 ALT 145 alkaline phosphatase 147 04/21/2018 patient continues in the intensive care setting, cholecystotomy tube draining medium green colored bilious fluid, no obvious bleeding Son Ajay is the chief language communicator for this patient. Contact #[phone]. Family and patient are requesting Ajay be called after any procedures pending tomorrow probable ERCP planned. Labs reviewed which show hemoglobin 10.4, no obvious bleed and decreasing LFTs, AST 48 ALT 108, bilirubin 3, alkaline phosphatase decreased to 128. Appreciate general surgery input. Patient is tolerating clear liquids without nausea or vomiting. Supportive care to patient and further recommendations to follow after ERCP this was all explained to the family and patient. 04/23/2018 Post ERCP with stent placement-indicated for abdominal pain with suspected biliary origin The biliary tree appeared normal with no evidence of stricture or dilation Ampulla appeared smaller than normal. The ampulla was small and difficult to locate Suspected cbd stones ERCP with sphincterotomy/papillotomy, removal of calculi and stent placement -WBC 4.9 hemoglobin 9.6 hematocrit 29.7 -Bilirubin 2.0 AST 79 ALT 87 alk phos 104 slightly improved Patient denies abdominal pain nausea or vomiting, right upper quadrant biliary drainage in place. Plan -Advance to full liquid diet today, if patient tolerates advance in a.m. -May resume anticoagulants in a.m. -Monitor biliary drainage output -Monitor CBC and liver function -Analgesics and antiemetics as per attending -Patient to follow-up with general surgery post discharge with plan for cholecystectomy in 6-8 weeks/stent to be removed post cholecystectomy -Supportive care -IV antibiotics as per attending -CBC CMP in a.m. -GI will sign off at this time, please notify for further assistance This patient has been seen by myself and Dr. Sierra and this note is written on his behalf - Attending Attestation Dr. Sierra (3) UTI (urinary tract infection) Qualifiers: Urinary tract infection type: acute cystitis Hematuria presence: without hematuria Qualified Code(s): N30.00 - Acute cystitis without hematuria
[2018-04-24] MEDS: Chlorhexidine Gluconate 2% 1 Pack (2 Cloths) TOPICAL SCH (03:15)
[2018-04-24] MEDS: Metoprolol Tartrate 50 MG Tablet PO SCH ×4 (05:38→21:05)
[2018-04-24 05:52] LABS: Baso # (Auto) 0.1 th/mm3 (0.0-0.2); Baso % (Auto) 1.8 % (0.0-2.0); Eos # (Auto) 0.1 th/mm3 (0.0-0.4); Eos % (Auto) 1.8 % (0.0-4.0); Hematocrit 30.4 % (39.0-51.0); Lymph # (Auto) 1.2 th/mm3 (1.0-4.8); Lymph % (Auto) 24.8 % (9.0-44.0); Mean Corpuscular HGB Conc 32.7 % (32.0-36.0); Mean Corpuscular Hemoglobin 22.5 pg (27.0-34.0); Mean Corpuscular Volume 68.7 fL (80.0-100.0); Mean Platelet Volume 9.3 fL (7.0-11.0); Mono # (Auto) 0.5 th/mm3 (0.0-0.9); Mono % (Auto) 10.2 % (0.0-8.0); Neut # (Auto) 2.9 th/mm3 (1.8-7.7); Neut % (Auto) 61.4 % (16.0-70.0); Platelet Count 228 th/mm3 (150-450); Red Blood Count 4.43 mil/mm3 (4.50-5.90); Red Cell Distribution Width 16.1 % (11.6-17.2); White Blood Count 4.7 th/mm3 (4.0-11.0)
[2018-04-24 06:13] LABS: Albumin 2.1 g/dL (3.4-5.0); Anion Gap 8 meq/L (5-15); Aspartate Aminotransferase 73 U/L (15-37); Blood Urea Nitrogen 11 mg/dL (7-18); Carbon Dioxide 25.8 meq/L (21.0-32.0); Chloride 108 meq/L (98-107); Glomerular Filtration Rate 79 mL/min (>89); Glucose,Random 133 mg/dL (74-106); INR 1.1 Ratio; Magnesium 1.4 mg/dL (1.5-2.5); Potassium 3.9 meq/L (3.5-5.1); Prothrombin Time 11.2 sec (9.8-11.6); Sodium 142 meq/L (136-145)
[2018-04-24 06:16] LABS: Alanine Aminotransferase 85 U/L (12-78); Alkaline Phosphatase 108 U/L (45-117); Phosphorus 2.9 mg/dL (2.5-4.9); Total Protein 5.8 g/dL (6.4-8.2)
[2018-04-24] MEDS: Insulin NovoLIN Regular Correctional Sugar Inj SQ SCH ×4 (09:05→20:48)
[2018-04-24] MEDS: Pantoprazole Inj 40 MG Vial IV.PUSH SCH (09:05)
[2018-04-24] MEDS: Magnesium Oxide 400 MG Tablet PO SCH ×2 (09:06→20:46)
--- NOTE | 2018-04-24 13:25 | P.PNIM ---
Subjective Interval history: No complaints of abd pain. Requesting a po regular diet. Patient says he is starting to feel better. Physical Exam Vital signs: Vital Signs 04/23/18 14:11 04/23/18 15:00 04/23/18 16:00 Temperature 98.1 F Pulse Rate 83 78 79 Respiratory Rate 18 19 17 Blood Pressure 166/98 H Pulse Oximetry 98 04/23/18 20:00 04/23/18 20:30 04/23/18 20:40 Temperature 98.4 F Pulse Rate 69 73 73 Respiratory Rate 18 Blood Pressure 164/77 H Pulse Oximetry 98 04/24/18 00:00 04/24/18 04:00 04/24/18 08:00 Temperature 99.3 F 98.6 F 97.9 F Pulse Rate 84 61 71 Respiratory Rate 18 19 18 Blood Pressure 146/74 H 164/78 H 171/81 H Pulse Oximetry 93 L 92 L 94 L 04/24/18 09:00 04/24/18 09:38 Temperature Pulse Rate 71 Respiratory Rate Blood Pressure Pulse Oximetry 94 L Intake & Output 04/23/18 04/24/18 04/24/18 18:59 06:59 18:59 Intake Total 900 / 900 800 / 800 100 / 100 Output Total Balance 880 / 880 780 / 780 100 / 100 Weight 115.5 kg Intake: IV 900 / 900 100 / 100 100 / 100 LR 1000 mL Inj 1,000 ML @ 120 600 / 600 mls/hr IV.CONT .Q8H20M [facility] Rx#: [id number] Primaxin Inj 500 MG In NS Inj 300 / 300 100 / 100 100 / 100 100 ML @ 200 mls/hr IV.SIG Q6HR [facility] Rx#:[id number] Oral 700 / 700 Output: Wound Drainage # 1 Right Upper Abdomen Other: # Voids 5 Date of Last Bowel Movement 04/20/18 04/22/18 04/22/18 Narrative: alert and oriented x 3 S1S2 CTA b/l abd soft, right sided drain in place, normal bowel sounds. No edema of the exts no focal neuro deficits. Results Labs CBC & Chem 7: 04/24/18 04:55 04/24/18 04:55 Labs: Microbiology 04/22/18 13:14 Blood - Peripheral Aerobic Blood Culture - Preliminary No growth in 2 days 04/22/18 13:14 Blood - Peripheral Anaerobic Blood Culture - Preliminary No growth in 2 days 04/19/18 13:35 Fluid - Gallbladder Gram Stain - Final 04/19/18 13:35 Fluid - Gallbladder Body Fluid Culture - Final Escherichia coli Enterococcus faecium Procedures Procedures: ERCP. Assessment and Plan (1) Severe sepsis: Code(s): A41.9 - Sepsis, unspecified organism; R65.20 - Severe sepsis without septic shock Status: Acute (2) Cholecystitis with cholangitis: Code(s): K81.9 - Cholecystitis, unspecified; K83.09 - Other cholangitis Status: Acute (3) UTI (urinary tract infection): Code(s): N39.0 - Urinary tract infection, site not specified Status: Acute (4) Acute cholecystitis due to biliary calculus: Code(s): K80.00 - Calculus of gallbladder with acute cholecystitis without obstruction Status: Acute (5) Hyperbilirubinemia: Code(s): E80.6 - Other disorders of bilirubin metabolism Status: Acute Plan Mr. Flowers is a 63-year-old male with a history of hypertension, diabetes mellitus, BPH who presented to [facility] ED due to 2-day duration of mid abdominal pain, emesis and lethargy. Patient's son noted that he was getting jaundiced as well. Subsequently patient was brought to the emergency department. He had a fever of 102.9 F on admission and lactic acid 3.2. CT abdomen pelvis shows gallbladder wall thickening with pericholecystic fluid. He was transferred to the main hospital due to severe sepsis and possible GI evaluation with ERCP. 1. Sepsis 2/2 E coli Bacteremia 2/2 Acute cholecystitis and Cholangitis Blood cxs 2/2 positive for E coli. Gall bladder fluid cx E coli. Repeat blood cxs are negative. Diet advanced today, will monitor the patient. Likely discharge tomorrow am if tolerating diet and plan for antibiotics set from ID. I will discuss the case with ID today. MRCP showed acute cholecystitis versus gangrenous cholecystitis. S/p cholecystostomy tube placement by IR which was done on 04/19/2018. ERCP done as well. On IV antibiotics. No fevers over the past few days. 2. Afib likely 2/2 sepsis No hx of a fib Etiology is likely dud to the patient's infectious condition. Now in NSR. ChadsVasc 3 HR under control with BB. Aspirin will be restarted on discharge. 3. HTN 4. DM 5. BPH Continue flomax On BB, continue to monitor the patient's blood pressure. Norvasc added to the pts meds. We will adjust meds as needed. Continue Sliding scale. Continue accu checks. 6. MARIAM 7. Electrolyte abnormalities Serum cr on admit 1.6, improved Electrolytes replaced. F/u am Magnesium level, 1.4 today. SCDs for DVT prophylaxis. Progress Note: Quality VTE Deep Vein Thrombosis/Pulmonary Embolism Present on Admission: No _ (1) UTI (urinary tract infection) Qualifiers: Encounter type: Hematuria presence: without hematuria Indwelling urinary catheter type: Urinary tract infection type: acute cystitis Qualified Code(s) : N30.00 - Acute cystitis without hematuria
[2018-04-24] MEDS ORDERED: DEXTROSE 5% IV.SIG ONE ×2 (15:00)
[2018-04-24] MEDS ORDERED: MAGNESIUM SULFATE IV.SIG ONE ×2 (15:00)
[2018-04-24] MEDS ORDERED: WATER IV.SIG ONE ×2 (15:00)
[2018-04-24] MEDS: amLODIPine 10 MG Tablet PO SCH (16:26)
[2018-04-25] MEDS: Acetaminophen 325 MG Tablet PO PRN (01:02)
[2018-04-25] MEDS ORDERED: hydrALAZINE 25 MG Tablet PO ONE (01:24)
[2018-04-25] MEDS: Metoprolol Tartrate 50 MG Tablet PO SCH ×3 (05:00→13:30)
[2018-04-25 05:13] LABS: Baso # (Auto) 0.1 th/mm3 (0.0-0.2); Eos # (Auto) 0.1 th/mm3 (0.0-0.4); Eos % (Auto) 2.2 % (0.0-4.0); Hematocrit 30.5 % (39.0-51.0); Hemoglobin 9.7 gm/dL (13.0-17.0); Lymph # (Auto) 1.4 th/mm3 (1.0-4.8); Lymph % (Auto) 26.7 % (9.0-44.0); Mean Corpuscular HGB Conc 31.8 % (32.0-36.0); Mean Corpuscular Hemoglobin 21.5 pg (27.0-34.0); Mean Corpuscular Volume 67.7 fL (80.0-100.0); Mean Platelet Volume 8.9 fL (7.0-11.0); Mono # (Auto) 0.5 th/mm3 (0.0-0.9); Mono % (Auto) 8.7 % (0.0-8.0); Neut # (Auto) 3.2 th/mm3 (1.8-7.7); Neut % (Auto) 60.4 % (16.0-70.0); Platelet Count 286 th/mm3 (150-450); Red Cell Distribution Width 15.6 % (11.6-17.2); White Blood Count 5.2 th/mm3 (4.0-11.0)
[2018-04-25 05:24] LABS: INR 1.1 Ratio; Prothrombin Time 11.1 sec (9.8-11.6)
[2018-04-25 05:36] LABS: Alanine Aminotransferase 83 U/L (12-78); Albumin 2.2 g/dL (3.4-5.0); Anion Gap 6 meq/L (5-15); Aspartate Aminotransferase 62 U/L (15-37); Blood Urea Nitrogen 11 mg/dL (7-18); Calcium 7.9 mg/dL (8.5-10.1); Carbon Dioxide 29.6 meq/L (21.0-32.0); Chloride 107 meq/L (98-107); Glomerular Filtration Rate 72 mL/min (>89); Glucose,Random 160 mg/dL (74-106); Magnesium 1.7 mg/dL (1.5-2.5); Phosphorus 2.6 mg/dL (2.5-4.9); Potassium 3.7 meq/L (3.5-5.1); Sodium 143 meq/L (136-145)
[2018-04-25 05:38] LABS: Alkaline Phosphatase 104 U/L (45-117); Total Protein 5.7 g/dL (6.4-8.2)
--- NOTE | 2018-04-25 07:01 | ECG ---
Date Performed: 04/22/2018 Time Performed: 22:16:36 PTAGE: 63 years EKG: Sinus rhythm with PVC(s) Low QRS voltages in limb leads Borderline ECG PREVIOUS TRACING : 04/19/2018 16.00 Compared to previous tracing, NSR has replaced atrial fibri llation with RVR DOCTOR: Duong Cohen Interpretating Date/Time 04/25/2018 07:00:08
[2018-04-25] MEDS: Pantoprazole Inj 40 MG Vial IV.PUSH SCH (08:20)
[2018-04-25] MEDS: Magnesium Oxide 400 MG Tablet PO SCH (08:20)
[2018-04-25] MEDS: amLODIPine 10 MG Tablet PO SCH (08:20)
[2018-04-25] MEDS: Insulin NovoLIN Regular Correctional Sugar Inj SQ SCH ×2 (08:20→12:56)
[2018-04-25] MEDS ORDERED: Sodium Chloride 0.9% 2 ML Flush BID IV.FLUSH SCH (09:00)
[2018-04-25 09:28] VITALS: BP 132/60; PULSE 80; RESP 17; TEMP 98.6; O2SAT 91
--- NOTE | 2018-04-25 11:22 | P.DS ---
DS: Providers Date of admission: 04/19/18 02:11 Primary care physician: Cholo Marin MD Consults: 04/19/18 05:55 Consult to Gastroenterology Routine Consulting Provider: Jovi Sierra V Reason for Consultation: cholangitis Notified:: Service Spoke with:: [email or web address] Date Notified:: 04/19/18 Time Notified:: 07:12 Ordering Provider: SAMANTHA 04/19/18 07:57 Consult to General Surgery Routine Consulting Provider: Frankie Ruiz Reason for Consultation: cholecystitis Notified:: Service Spoke with:: shonda Date Notified:: 04/19/18 Time Notified:: 08:25 Ordering Provider: SAMANTHA 04/19/18 10:37 HUB Only Consult Order Routine Consulting Provider: Gosia Elise 04/19/18 18:13 Consult to Hospitalist Routine Consulting Provider: Obdulio Wan Reason for Consultation: acute cholecystitis Notified:: Service Spoke with:: fredy Date Notified:: 04/19/18 Time Notified:: 18:19 Ordering Provider: EDEL 04/20/18 08:35 Consult to Infectious Diseases Routine Consulting Provider: Rebecca Yan Reason for Consultation: Acute cholangitis/cholecystitis. s/p Cholecystostomy tube placement by IR. Currently on Aztreonam and Flagyl. Still running fever. Please evaluate and recommend. 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 He had 2-3 episodes of emesis 04/17. Was lethargic and slept most of the day. Today his son noticed he was jaundiced and having chills and so he encouraged him to come to the emergency department. He has no prior history of similar symptoms. He was febrile on arrival to 102.9. He has a normal white cell count but left shift. Lactic acid is 3.2. LFTs are elevated and obstructive pattern. CT abd/pelvis demonstrates gallbladder wall thickening with pericholecystic fluid. There is stone debris but no dilatation of the biliary tree. He is transferred to [facility] for stabilization of severe sepsis and GI evaluation for possible ERCP. U/a also consistent with UTI. DS: Diagnosis Discharge Diagnosis (1) Severe sepsis: Status: Acute (2) Cholecystitis with cholangitis: Status: Acute (3) UTI (urinary tract infection): Status: Acute (4) Acute cholecystitis due to biliary calculus: Status: Acute (5) Hyperbilirubinemia: Status: Acute DS: Summary Mr. Flowers is a 63-year-old male with a history of hypertension, diabetes mellitus, BPH who presented to [facility] ED due to 2-day duration of mid abdominal pain, emesis and lethargy. Patient's son noted that he was getting jaundiced as well. Subsequently patient was brought to the emergency department. He had a fever of 102.9 F on admission and lactic acid 3.2. CT abdomen pelvis shows gallbladder wall thickening with pericholecystic fluid. He was transferred to [facility] due to severe sepsis and possible GI evaluation with ERCP. 1. Sepsis 2/2 E coli Bacteremia 2/2 Acute cholecystitis and Cholangitis Blood cxs 2/2 positive for E coli. Gall bladder fluid cx E coli. Repeat blood cxs are negative. MRCP showed acute cholecystitis versus gangrenous cholecystitis. S/p cholecystostomy tube placement by IR which was done on 04/19/2018. ERCP done as well. ERCP with sphincterotomy/papillotomy, removal of calculi and stent placement. On IV antibiotics during the hospitalization with primaxin as per ID recs. Patient will be discharged on PO zyvox, cefuroxime, and flagyl. Scripts given to the patient prior to his discharge. Repeat cbc, renal panel in one week. Close monitoring while on zyvox. No fevers over the past few days. Diet was advanced and he is tolerating his diet well. No complaints of abd pain. Patient will need to follow up with general surgery in two weeks for possible removal of the cholecystostomy tube. He will need a cholecystectomy in 6-8 weeks. Stent will be removed post cholecystectomy as per GIs notes. Follow up after cholecystectomy with a GI specialist. Patient does not have a PCP, instructions given to the patient on how to obtain a PCP. 2. Afib likely 2/2 sepsis No hx of a fib Etiology is likely due to the patient's infectious condition. Paroxysmal a fib cannot be completely ruled out. He should follow up outpatient with his pcp in one week and follow up with a laundry machine mechanic for evaluation and need for anticoagulation. Now in NSR. ChadsVasc 3 HR under control with BB. Aspirin will be restarted on discharge. Plan was discussed with the patient. At this time he wants to continue aspirin until he is evaluated by cardiology. He understands the risk of not being on full anticoagulation including stroke. 3. HTN 4. DM 5. BPH Continue flomax On BB, continue to monitor the patient's blood pressure. Norvasc was added to the pts meds. We will adjust meds as needed. Continue Sliding scale. Continue accu checks. 6. MARIAM likely from dehydration and sepsis Serum cr on admit 1.6, improved to 1.0 Time Spent with Patient Total time spent providing and/or coordinating discharge services: Greater than 30 minutes Quality: VTE Deep Vein Thrombosis/Pulmonary Embolism Present on Admission: No Exam Narrative Exam Narrative: S1S2 CTA b/l abd soft, right sided drain in place, normal bowel sounds. No edema of the exts no focal neuro deficits. Results Procedures completed during hospitalization: ERCP. Labs on day of discharge: Labs from last 24 hours 04/25/18 04/25/18 04/25/18 04:36 04:36 04:36 WBC 5.2 RBC 4.50 Hgb 9.7 L Hct 30.5 L MCV 67.7 L MCH 21.5 L MCHC 31.8 L RDW 15.6 Plt Count 286 MPV 8.9 Neut % (Auto) 60.4 Lymph % (Auto) 26.7 [place] % (Auto) 8.7 H Eos % (Auto) 2.2 Baso % (Auto) 2.0 Neut # (Auto) 3.2 Lymph # (Auto) 1.4 [place] # (Auto) 0.5 Eos # (Auto) 0.1 Baso # (Auto) 0.1 WBC Differential . Differential Comment Auto diff final PT 11.1 INR 1.1 Sodium 143 Potassium 3.7 Chloride 107 Carbon Dioxide 29.6 Anion Gap 6 BUN 11 Creatinine 1.03 Estimated GFR 72 L POC Glucose Random Glucose 160 H Calcium 7.9 L Phosphorus 2.6 Magnesium 1.7 Total Bilirubin 1.4 H AST 62 H ALT 83 H Alkaline Phosphatase 104 Total Protein 5.7 L Albumin 2.2 L 04/24/18 04/24/18 04/24/18 20:20 17:23 12:22 WBC RBC Hgb Hct MCV MCH MCHC RDW Plt Count MPV Neut % (Auto) Lymph % (Auto) [place] % (Auto) Eos % (Auto) Baso % (Auto) Neut # (Auto) Lymph # (Auto) [place] # (Auto) Eos # (Auto) Baso # (Auto) WBC Differential Differential Comment PT INR Sodium Potassium Chloride Carbon Dioxide Anion Gap BUN Creatinine Estimated GFR POC Glucose 220 H 221 H 155 H Random Glucose Calcium Phosphorus Magnesium Total Bilirubin AST ALT Alkaline Phosphatase Total Protein Albumin Preliminary micro results at discharge 04/22/18 13:14 Aerobic Blood Culture - Preliminary Blood - Peripheral No growth in 3 days Anaerobic Blood Culture - Preliminary No growth in 3 days Impressions ITS Impressions Chest X-Ray 04/18/18 22:36 CONCLUSION: No acute disease Percutaneous Cholangiogram 04/19/18 00:00 CONCLUSION: 1. Uncomplicated percutaneous cholecystostomy as above. The patient has a patent cystic duct, however, there is occlusion of the common bile duct at the level of the ampulla. This is likely relating to a stone. Cholecystostomy tube placement was felt prudent to decompress the biliary system as detailed above. Turbid bile was noted and a sample sent to the lab for culture. Abdomen/Pelvis CT 04/19/18 00:18 CONCLUSION: 1. Severe changes of cholecystitis. There is no significant gallbladder lumen to allow for percutaneous cholecystostomy. 2. Hepatosplenomegaly. Cholangiopancreatography MRI 04/19/18 04:18 CONCLUSION: 1. Abnormal appearance to the gallbladder and hepatic parenchyma immediately surrounding the gallbladder fossa (rim sign) with multiple gallstones and significant gallbladder wall thickening. Differential considerations include acute cholecystitis and gangrenous cholecystitis. 2. No dilation of the intra or extrahepatic biliary system. Discharge Plan Discharge Disposition Patient Disposition: 01 Discharge Home Discharge Condition Condition: Stable Discharge Order Discharge Orders: Discharge Order (Routine); Ordered 04/25/18 Ordered By: Giselle Keenan Physicians Team ED Provider: Makayla Hernandez Primary Care Provider: Cholo Marin Attending Provider: Giselle Keenan Other Providers: Jovi Sierra V ; Frankie RuizHumana ; Rebecca Yan ; [facility], Rxs /Orders / Referrals /Forms Prescriptions: New amlodipine [Norvasc] 10 mg Tablet 10 mg PO DAILY Qty: 30 RF: 0 metoprolol tartrate 50 mg Tablet 50 mg PO BID Qty: 60 RF: 0 pantoprazole [Protonix] 40 mg tablet,delayed release (DR/EC) 40 mg PO DAILY Qty: 30 RF: 0 metronidazole [Flagyl] 500 mg tablet 500 mg PO Q8H Qty: 30 RF: 0 linezolid [Zyvox] 600 mg tablet 600 mg PO BID 10 Days Qty: 20 RF: 0 cefuroxime axetil 500 mg tablet 500 mg PO BID 10 Days Qty: 20 RF: 0 Continue metformin 500 mg Tablet 500 mg PO BID RF: 0 aspirin 81 mg Tablet,Delayed Release (Dr/Ec) 81 mg PO DAILY RF: 0 glipizide 5 mg Tablet 5 mg PO DAILY RF: 0 tamsulosin [Flomax] 0.4 mg Capsule 0.4 mg PO DAILY RF: 0 Referrals: Jovi Sierra MD [Physician] - See Instructions (OFFICE WILL CALL WITH APPT) Frankie Ruiz MD [GENERAL SURGERY] - 05/08/18 10:00 am Cholo Marin MD [Primary Care Provider] - 04/30/18 10:00 am Discharge Instructions Additional Instructions: Continue activity as tolerated using caution because of the biliary drain in place. Patient to discharge with drain in place. Status will be reviewed at follow-up appointment in two weeks. Status ED Status: Left Department
--- NOTE | 2018-04-25 14:26 | P.PNID ---
Subjective Remarks: pt is doing well no fever Antibiotics: primaxin Allergies/Adverse Reactions: Allergies penicillin G Allergy (Intermediate, Verified 04/18/18 23:22) Rash Rash all over body Objective Vital Signs 04/24/18 16:00 04/24/18 20:00 04/25/18 00:00 Temperature 98.1 F 98.5 F 98.8 F Pulse Rate 70 73 71 Respiratory Rate 16 18 18 Blood Pressure 140/67 153/92 H 171/81 H Pulse Oximetry 99 97 94 L 04/25/18 01:28 04/25/18 04:00 04/25/18 08:00 Temperature 98.0 F 98.6 F Pulse Rate 71 72 80 Respiratory Rate 18 17 Blood Pressure 161/86 H 132/60 Pulse Oximetry 95 91 L Intake & Output 04/24/18 04/25/18 04/25/18 18:59 06:59 18:59 Intake Total 820 / 820 900 / 900 100 / 100 Output Total 30 / 30 Balance 820 / 820 870 / 870 100 / 100 Weight 115.5 kg Intake: IV 200 / 200 300 / 300 100 / 100 Primaxin Inj 500 MG In NS Inj 200 / 200 300 / 300 100 / 100 100 ML @ 200 mls/hr IV.SIG Q6HR PENDING SALE TO [facility] Rx#:[id number] Oral 620 / 620 600 / 600 Output: Wound Drainage # 1 Right Upper Abdomen Other: # Voids 2 2 Date of Last Bowel Movement 04/22/18 04/23/18 04/23/18 # Bowel Movements 2 04/22/18 13:14 Blood - Peripheral Aerobic Blood Culture - Preliminary No growth in 3 days 04/22/18 13:14 Blood - Peripheral Anaerobic Blood Culture - Preliminary No growth in 3 days 04/19/18 13:35 Fluid - Gallbladder Gram Stain - Final 04/19/18 13:35 Fluid - Gallbladder Body Fluid Culture - Final Escherichia coli Enterococcus faecium 04/18/18 22:45 Blood - Peripheral Aerobic Blood Culture - Final Escherichia coli 04/18/18 22:45 Blood - Peripheral Anaerobic Blood Culture - Final Escherichia coli 04/18/18 23:00 Blood - Peripheral Aerobic Blood Culture - Final Escherichia coli 04/18/18 23:00 Blood - Peripheral Anaerobic Blood Culture - Final Escherichia coli Lab - Hematology Results 04/24/18 04/25/18 04:55 04:36 WBC 4.7 5.2 RBC 4.43 L 4.50 Hgb 10.0 L 9.7 L Hct 30.4 L 30.5 L MCV 68.7 L 67.7 L MCH 22.5 L 21.5 L MCHC 32.7 31.8 L RDW 16.1 15.6 Plt Count 228 286 MPV 9.3 8.9 Neut % (Auto) 61.4 60.4 Lymph % (Auto) 24.8 26.7 [place] % (Auto) 10.2 H 8.7 H Eos % (Auto) 1.8 2.2 Baso % (Auto) 1.8 2.0 Neut # (Auto) 2.9 3.2 Lymph # (Auto) 1.2 1.4 [place] # (Auto) 0.5 0.5 Eos # (Auto) 0.1 0.1 Baso # (Auto) 0.1 0.1 WBC Differential . . Differential Comment Auto diff final Auto diff final Lab - Chemistry Results 04/23/18 04/23/18 04/24/18 16:47 20:03 04:55 Sodium 142 Potassium 3.9 Chloride 108 H Carbon Dioxide 25.8 Anion Gap 8 BUN 11 Creatinine 0.96 Estimated GFR 79 L POC Glucose 177 H 192 H Random Glucose 133 H Calcium 8.0 L Phosphorus 2.9 Magnesium 1.4 L Total Bilirubin 1.7 H AST 73 H ALT 85 H Alkaline Phosphatase 108 Total Protein 5.8 L Albumin 2.1 L 04/24/18 04/24/18 04/24/18 07:58 12:22 17:23 Sodium Potassium Chloride Carbon Dioxide Anion Gap BUN Creatinine Estimated GFR POC Glucose 133 H 155 H 221 H Random Glucose Calcium Phosphorus Magnesium Total Bilirubin AST ALT Alkaline Phosphatase Total Protein Albumin 04/24/18 04/25/18 20:20 04:36 Sodium 143 Potassium 3.7 Chloride 107 Carbon Dioxide 29.6 Anion Gap 6 BUN 11 Creatinine 1.03 Estimated GFR 72 L POC Glucose 220 H Random Glucose 160 H Calcium 7.9 L Phosphorus 2.6 Magnesium 1.7 Total Bilirubin 1.4 H AST 62 H ALT 83 H Alkaline Phosphatase 104 Total Protein 5.7 L Albumin 2.2 L Imaging: ITS Impressions Chest X-Ray 04/18/18 22:36 CONCLUSION: No acute disease Percutaneous Cholangiogram 04/19/18 00:00 CONCLUSION: 1. Uncomplicated percutaneous cholecystostomy as above. The patient has a patent cystic duct, however, there is occlusion of the common bile duct at the level of the ampulla. This is likely relating to a stone. Cholecystostomy tube placement was felt prudent to decompress the biliary system as detailed above. Turbid bile was noted and a sample sent to the lab for culture. Abdomen/Pelvis CT 04/19/18 00:18 CONCLUSION: 1. Severe changes of cholecystitis. There is no significant gallbladder lumen to allow for percutaneous cholecystostomy. 2. Hepatosplenomegaly. Cholangiopancreatography MRI 04/19/18 04:18 CONCLUSION: 1. Abnormal appearance to the gallbladder and hepatic parenchyma immediately surrounding the gallbladder fossa (rim sign) with multiple gallstones and significant gallbladder wall thickening. Differential considerations include acute cholecystitis and gangrenous cholecystitis. 2. No dilation of the intra or extrahepatic biliary system. Physical Exam: GENERAL: NAD SKIN: Warm and dry. NO rash HEAD: Atraumatic. Normocephalic. EYES: Pupils equal and round. No scleral icterus. No injection or drainage. ENT: No nasal bleeding or discharge. Mucous membranes pink and moist. NECK: Trachea midline. No JVD. CARDIOVASCULAR: Regular rate and rhythm. RESPIRATORY: No accessory muscle use. Clear to auscultation. Breath sounds equal bilaterally. GASTROINTESTINAL: Abdomen soft, moderately tender RUQ , mildly distended. bikliary drain in palce with cloudy bile Hepatic and splenic margins not palpable. MUSCULOSKELETAL: Extremities without clubbing, cyanosis, or edema. No obvious deformities. NEUROLOGICAL: Awake and alert. Non focal Normal speech. PSYCHIATRIC: Appropriate mood and affect Assessment and Plan - Plan Acute cholecytytis, possibly caculous sp cholecystostomy placment with plan for delayed cholecystectomy E.coli sepsis - from acute cholecystitis PCN allergy, unknown type E coli R to LEvaquine dc Primaxin Rx with 3 abx x 10 days: Cefuroxime 500 mg BID Flagyl 500 mg TID zyvox 600 mg BID fu CBC, BMP weekly while on zyvox OK to dc dw Dr Keenan
== END 2018-04-25 16:58 | disposition home or self-care (01) | DRG 872 ==
LOC: PHED 21:52 → PHEDA 04-19 02:11 → N03 04-19 03:45 → N07 04-23 16:42
PROVIDERS: ADMIT Hospitalist; ATTEND Hospitalist
DX: D50.9 Iron deficiency anemia, unspecified; E87.2 Acidosis; I48.0 Paroxysmal atrial fibrillation; A41.51 Sepsis due to Escherichia coli [E. coli]; N18.9 Chronic kidney disease, unspecified; N17.9 Acute kidney failure, unspecified; E11.22 Type 2 diabetes mellitus with diabetic chronic kidney disease; I12.9 Hypertensive chronic kidney disease with stage 1 through stage 4 chronic kidney disease, or unspecified chronic kidney disease; E87.6 Hypokalemia; N39.0 Urinary tract infection, site not specified; Z79.82 Long term (current) use of aspirin; E83.42 Hypomagnesemia; N40.0 Benign prostatic hyperplasia without lower urinary tract symptoms; I95.9 Hypotension, unspecified; R65.20 Severe sepsis without septic shock; K80.63 Calculus of gallbladder and bile duct with acute cholecystitis with obstruction; K83.09 Other cholangitis; Z79.84 Long term (current) use of oral hypoglycemic drugs; Z88.0 Allergy status to penicillin
CPT/HCPCS: 47490; 71010; 71045; 74177; 74181; 74330; 76377; 76937; 80048; 80053; 80076; 81001; 82948; 82962; 83605; 83690; 83735; 84100; 84132; 84484; 85025; 85610; 85730; 87040; 87070; 87077; 87086; 87149; 87186; 87205; 87641; 90761; 90765; 90767; 90775; 93005; 93306; 94150; 96361; 96365; 96367; 96375; 97116; 97161; 99145; 99152; 99153; 99291; C1729; C1769; C1894; C2625; C9113; C9116; J0330; J0743; J1170; J1335; J1956; J2250; J2270; J2370; J2405; J2704; J3010; J3370; J3475; J3480; J7030; J7050; J7120; P9612; Q9967